=== PATIENT | female | born 1935 | race Caucasian/White ===

== ENCOUNTER → 2017-10-15 | Outpatient (CLI) | payer MEDICARE ==
[2017-07-23 10:53] VITALS: BMI 17.1
[~2017-10-15] MED LIST: ACE3 PO; ACE325 PO; ACET650T40 PO; ADV250/50 INH; ALE70 PO; AMI200 PO; AMIO200T47 PO; AMOX-557 PO; ASPI-1441 PO; ASPI-1471 PO; ATR10 PO; AZIT-1 PO; BENZ200C15 PO; BUDE10.25 IH; CALC-734 PO; CAR3.125 PO; CAR6.25 PO; CEF300 PO; CHOL100052 PO; CHOL100060 PO; CIP500 PO; COM14R INH; DAR100 PO; DICL100G39 TOP; DILT240C PO; DILT240C64 PO; ERG400 PO; FLU IM; FLU45SYR17 IM; FLU45SYR25 IM ONLY; FLUT16SP20 NS; FURO-43 PO; FURO-47 PO; IRON1CAP52 PO; LEVO750T44 PO; LIPITOR; LISI-362 PO; LISI2.5T60 PO; LOR10 PO; LOR5/325 PO; METO-233 PO; METO100T20 PO; MUCOUS RELIEF PO; MULT-1319 PO; MULT-820 PO; MULT-865 PO; OMEG-23 PO; OMEP-153 PO; OMEP10CA40 PO; OXYGENHOME INH; PANT40TA65 PO; PNEU0.5D3 IM; POTA20TA85 PO; POTA20TA94 PO; PRE10 PO; SIMV-42 PO; SIMV-49 PO; SODCTAB PO; SPIR25TA78 PO; SULF-198 PO; TRAM-420 PO; TUM500 PO; WAR1 PO; WAR25 PO; WAR5 PO; WARF-1 PO; WARF2.5T11 PO; WARF4TAB47 PO; WARF5TAB23 PO; ZOST19404 SQ
== END ==
LOC: LAB 13:53
PROVIDERS: ATTEND Internal Medicine
DX: E87.1 Hypo-osmolality and hyponatremia (principal)
CPT/HCPCS: 36415; 82310; 82374; 82435; 82565; 82947; 84132; 84295; 84520

== ENCOUNTER → 2017-12-08 | Outpatient (CLI) | payer MEDICARE ==
[2017-07-23 10:53] VITALS: BMI 17.1
[~2017-12-08] MED LIST changes: +HYDR-4309 PO
== END ==
LOC: LAB 15:10
PROVIDERS: ATTEND Internal Medicine
DX: E87.1 Hypo-osmolality and hyponatremia (principal)
CPT/HCPCS: 36415; 82310; 82374; 82435; 82565; 82947; 84132; 84295; 84520

== ENCOUNTER 2018-02-10 10:07 | Inpatient (IN) | payer MEDICARE ==
[~2018-02-10] VITALS: Ht 165.1 cm; Wt 42.9 kg
[~2018-02-10 10:07] MED LIST changes: -FLUT1DIS27 INH
--- NOTE | 2018-02-10 10:16 | ER Report ---
History and Physical Time Seen By MD: 10:12 HPI/ROS CHIEF COMPLAINT: Fall history of neck pain. HISTORY OF PRESENT ILLNESS: Patient is an 82-year-old female who fell approximately 2 days ago is now having some lateral neck pain. Patient does take Coumadin for atrial fibrillation. Because of the pain and spasm patient was given 2.5 mg of IV Valium by EMS. Patient states that she tripped and fell backwards at her home striking the back of her head. Over the course of the last 48 hours she developed left-sided neck pain. Headache is mild but is still present. She denies any nausea or vomiting she denies loss of consciousness. She denies chest pain she denies shortness of breath she denies abdominal pain. She denies any urinary symptoms. REVIEW OF SYSTEMS: Constitutional: No fever, no chills. Eyes: No discharge. ENT: No sore throat. Left lateral neck pain Cardiovascular: No chest pain, no palpitations. Respiratory: No cough, no shortness of breath. Gastrointestinal: No abdominal pain, no vomiting. Genitourinary: No hematuria. Musculoskeletal: No back pain. Skin: No rashes. Neurological: Headache Allergies: Coded Allergies: latex (Verified Allergy, Mild, RASH, 02/10/18) mustard (Verified Allergy, Mild, 02/10/18) Home Meds Active Scripts Metoprolol Succinate (METOPROLOL SUCCINATE) 100 Mg Tab.er.24h, 1 TAB PO BID, # 180 TAB 4 Refills Prov:CHIP PEDRO MD 12/10/17 Warfarin Sodium (COUMADIN) 5 Mg Tablet, 0.5-5 TAB PO DIRECTED, #30 TAB 11 Refills Take 5mg Mon, Wed, Fri, and 2.5mg the rest of the week (Sun, , Th, Sat) Prov:CHIP PEDRO MD 09/01/17 Pantoprazole Sodium (PANTOPRAZOLE SODIUM) 40 Mg Tablet.dr, 1 TAB PO QDAY, #90 TAB.SR 4 Refills Prov:CHIP PEDRO MD 09/01/17 Simvastatin (SIMVASTATIN) 20 Mg Tablet, 1 TAB PO HS, #90 TAB 4 Refills Prov:CHIP PEDRO MD 10/05/16 [place]-3 Fatty Acids/Fish Oil (FISH OIL 1,000 MG SOFTGEL) 1 Each Capsule, 1 EACH PO QDAY, #30 CAPSULE Prov:HAIRSTONJACQUELINE PHARMDora 08/06/14 Reported Medications Oxygen (OXYGEN) Inha, 2 L INH HS, L 01/29/16 Multivitamin (DAILY MULTIPLE VITAMIN) 1 Each Tablet, 1 TAB PO DAILY 05/17/14 Aspirin (ASPIR 81) 81 Mg Tablet.dr, 1 TAB PO QDAY 05/17/14 Discontinued Scripts Hydrocodone Bit/Acetaminophen (NORCO 5-325 TABLET) 1 Each Tablet, 1 TAB PO QDAY Y for pain for 30 Days, #30 TAB 0 Refills Prov:CHIP PEDRO MD 11/24/17 Past Medical/Surgical History Past medical history for atrial fibrillation on Coumadin. History of hypertension history of myocardial infarction, history of COPD, pacemaker, left hip fracture with repair, history of bleeding diathesis. Hx Smoking: Yes Smoking Status: Current: Every Day Smoker, Light Tobacco Smoker Exposure to Second Hand Smoke?: No Hx Substance Use Disorder: No Hx Alcohol Use: No Constitutional Vital Sign - Last 24 Hours 02/10/18 02/10/18 02/10/18 02/10/18 10:08 10:08 10:10 10:15 Temp 98.2 Pulse 70 Resp 16 B/P (MAP) 104/50 104/50 (68) 95/58 (70) Pulse Ox 95 O2 Delivery Nasal Cannula O2 Flow Rate 2.0 02/10/18 02/10/18 02/10/18 02/10/18 10:30 10:30 10:30 10:35 Pulse 65 65 Resp 16 12 B/P (MAP) 87/59 (68) Pulse Ox 100 100 O2 Delivery Nasal Cannula O2 Flow Rate 2.0 02/10/18 02/10/18 02/10/18 02/10/18 10:45 11:15 11:30 11:35 Pulse 44 Resp 18 B/P (MAP) 100/63 (75) 132/66 (88) 133/63 (86) Pulse Ox 81 02/10/18 02/10/18 02/10/18 02/10/18 11:45 12:00 12:27 12:30 B/P (MAP) 127/72 (90) 126/62 (83) 125/61 (82) 130/60 (83) 02/10/18 02/10/18 02/10/18 12:45 13:00 13:15 B/P (MAP) 135/65 (88) 154/83 (106) 148/74 (98) Intake and Output 02/10/18 02/10/18 02/11/18 15:00 23:00 07:00 Intake Total 600 ml Output Total 15 ml Balance 585 ml Physical Exam General/Constitutional: Patient is awake, alert, nontoxic and in no acute respiratory distress. Head: Normocephalic and atraumatic. Eyes: Conjunctival clear, Pupils are equal and reactive to light. Extraocular muscles are intact and symmetrical. Sclera are clear and anicteric. Eyes are sunken Ears:External canals are clear. Tympanic membranes are clear with normal landmarks and light reflex. Nares: No rhinorrhea or bleeding. Turbinates are pink and moist. Oropharyngeal: Mucous membranes are moist. There is no pharyngeal erythema or exudate. There are no palatal petechiae. Uvula is midline and symmetrical. Neck: Patient with left lateral neck tenderness no palpable step-offs noted. Patient remains in c-collar Cardiovascular: Heart is regular rate and rhythm Pulmonary: Lungs reveal scattered rhonchi with cough. Abdomen: Soft, nontender, no guarding or peritoneal signs. Colostomy intact Extremities: No gross deformities, No peripheral cyanosis. Able to move all 4 extremities. Neuro: Alert and oriented X3, GCS-15 Skin: No rashes, skin is warm dry and well perfused. Medical Decision Making Data Points Result Diagram: 02/10/18 0950 02/10/18 0950 Laboratory Hematology Test 02/10/18 09:50 02/10/18 11:14 Red Blood Count 4.36 M/uL (4.17-5.56) Mean Corpuscular Volume 89.8 fL (80.0-96.0) Mean Corpuscular Hemoglobin 30.4 pg (26.0-33.0) Mean Corpuscular Hemoglobin Concent 33.8 g/dL (32.0-36.0) Red Cell Distribution Width 15.7 % (11.5-14.5) Mean Platelet Volume 7.3 fL (7.2-11.1) Neutrophils (%) (Auto) 70.9 % (39.4-72.5) Lymphocytes (%) (Auto) 20.9 % (17.6-49.6) Monocytes (%) (Auto) 6.1 % (4.1-12.4) Eosinophils (%) (Auto) 1.8 % (0.4-6.7) Basophils (%) (Auto) 0.3 % (0.3-1.4) Nucleated RBC Relative Count (auto) 0.0 /100WBC Neutrophils # (Auto) 5.3 K/uL (2.0-7.4) Lymphocytes # (Auto) 1.6 K/uL (1.3-3.6) Monocytes # (Auto) 0.5 K/uL (0.3-1.0) Eosinophils # (Auto) 0.1 K/uL (0.0-0.5) Basophils # (Auto) 0.0 K/uL (0.0-0.1) Nucleated RBC Absolute Count (auto) 0.00 K/uL Prothrombin Time 25.2 seconds (12.0-14.4) Prothromb Time International Ratio 2.21 Sodium Level 123 mmol/L (137-145) Potassium Level 4.2 mmol/L (3.5-5.0) Chloride Level 91 mmol/L (98-107) Carbon Dioxide Level 25 mmol/L (22-31) Blood Urea Nitrogen 10 mg/dl (7-18) Creatinine 0.70 mg/dl (0.52-1.04) Glomerular Filtration Rate Calc > 60.0 Random Glucose 95 mg/dl (75-110) Calcium Level 8.7 mg/dl (8.4-10.2) Total Bilirubin 0.4 mg/dl (0.2-1.3) Aspartate Amino Transf (AST/SGOT) 30 U/L (0-35) Alanine Aminotransferase (ALT/SGPT) 25 U/L (0-56) Alkaline Phosphatase 105 U/L (0-126) Troponin I < 0.012 ng/ml B-Type Natriuretic Peptide 275 pg/ml (0-100) Total Protein 7.3 g/dl (6.3-8.2) Albumin 3.6 g/dl (3.5-5.0) Urine Color Erika Urine Clarity Slightly-cloudy Urine pH 5.0 pH (4.8-9.5) Urine Specific Buena 1.024 Urine Protein 30 mg/dL (NEGATIVE) Urine Glucose (UA) Negative mg/dL (NEGATIVE) Urine Ketones Negative mg/dL (NEGATIVE) Urine Blood Negative (NEGATIVE) Urine Nitrite Negative (NEGATIVE) Urine Bilirubin Negative (NEGATIVE) Urine Urobilinogen Negative mg/dL (0.2-1.9) Urine Leukocyte Esterase Small (NEGATIVE) Urine RBC 4 /HPF (0-2/HPF) Urine WBC 14 /HPF (0-5/HPF) Urine Squamous Epithelial Cells None /LPF (NONE-FEW) Urine Bacteria Few /HPF (NONE-FEW) Urine Mucus None /HPF (NONE-FEW) Chemistry Test 02/10/18 09:50 02/10/18 11:14 White Blood Count 7.4 k/uL (4.5-11.0) Red Blood Count 4.36 M/uL (4.17-5.56) Hemoglobin 13.2 g/dL (12.0-16.0) Hematocrit 39.1 % (34.0-47.0) Mean Corpuscular Volume 89.8 fL (80.0-96.0) Mean Corpuscular Hemoglobin 30.4 pg (26.0-33.0) Mean Corpuscular Hemoglobin Concent 33.8 g/dL (32.0-36.0) Red Cell Distribution Width 15.7 % (11.5-14.5) Platelet Count 308 K/uL (150-450) Mean Platelet Volume 7.3 fL (7.2-11.1) Neutrophils (%) (Auto) 70.9 % (39.4-72.5) Lymphocytes (%) (Auto) 20.9 % (17.6-49.6) Monocytes (%) (Auto) 6.1 % (4.1-12.4) Eosinophils (%) (Auto) 1.8 % (0.4-6.7) Basophils (%) (Auto) 0.3 % (0.3-1.4) Nucleated RBC Relative Count (auto) 0.0 /100WBC Neutrophils # (Auto) 5.3 K/uL (2.0-7.4) Lymphocytes # (Auto) 1.6 K/uL (1.3-3.6) Monocytes # (Auto) 0.5 K/uL (0.3-1.0) Eosinophils # (Auto) 0.1 K/uL (0.0-0.5) Basophils # (Auto) 0.0 K/uL (0.0-0.1) Nucleated RBC Absolute Count (auto) 0.00 K/uL Prothrombin Time 25.2 seconds (12.0-14.4) Prothromb Time International Ratio 2.21 Glomerular Filtration Rate Calc > 60.0 Calcium Level 8.7 mg/dl (8.4-10.2) Total Bilirubin 0.4 mg/dl (0.2-1.3) Aspartate Amino Transf (AST/SGOT) 30 U/L (0-35) Alanine Aminotransferase (ALT/SGPT) 25 U/L (0-56) Alkaline Phosphatase 105 U/L (0-126) Troponin I < 0.012 ng/ml B-Type Natriuretic Peptide 275 pg/ml (0-100) Total Protein 7.3 g/dl (6.3-8.2) Albumin 3.6 g/dl (3.5-5.0) Urine Color Erika Urine Clarity Slightly-cloudy Urine pH 5.0 pH (4.8-9.5) Urine Specific Buena 1.024 Urine Protein 30 mg/dL (NEGATIVE) Urine Glucose (UA) Negative mg/dL (NEGATIVE) Urine Ketones Negative mg/dL (NEGATIVE) Urine Blood Negative (NEGATIVE) Urine Nitrite Negative (NEGATIVE) Urine Bilirubin Negative (NEGATIVE) Urine Urobilinogen Negative mg/dL (0.2-1.9) Urine Leukocyte Esterase Small (NEGATIVE) Urine RBC 4 /HPF (0-2/HPF) Urine WBC 14 /HPF (0-5/HPF) Urine Squamous Epithelial Cells None /LPF (NONE-FEW) Urine Bacteria Few /HPF (NONE-FEW) Urine Mucus None /HPF (NONE-FEW) Coagulation Test 02/10/18 09:50 Prothrombin Time 25.2 seconds Prothromb Time International Ratio 2.21 Urinalysis Test 02/10/18 11:14 Urine Color Erika Urine Clarity Slightly-cloudy Urine pH 5.0 pH (4.8-9.5) Urine Specific [place] 1.024 Urine Protein 30 mg/dL (NEGATIVE) Urine Glucose (UA) Negative mg/dL (NEGATIVE) Urine Ketones Negative mg/dL (NEGATIVE) Urine Blood Negative (NEGATIVE) Urine Nitrite Negative (NEGATIVE) Urine Bilirubin Negative (NEGATIVE) Urine Urobilinogen Negative mg/dL (0.2-1.9) Urine Leukocyte Esterase Small (NEGATIVE) Urine RBC 4 /HPF (0-2/HPF) Urine WBC 14 /HPF (0-5/HPF) Urine Squamous Epithelial Cells None /LPF (NONE-FEW) Urine Bacteria Few /HPF (NONE-FEW) Urine Mucus None /HPF (NONE-FEW) EKG/Imaging EKG Interpretation EKG shows electronic ventricular pacer with a rate of 65 bpm Monitor Interpretation: Other (Paced) Imaging FACILITY: [facility] - [place], [place] PATIENT NAME: Adelina Ballesteros : 1935 MR: [id number] V: [id number] EXAM DATE: ORDERING PHYSICIAN: SHERLYN VILLANUEVA TECHNOLOGIST: Location: [facility] - [place] Patient: Adelina Ballesteros : 1935 Visit/Account:[id number] Date of Sevice: 02/10/2018 Exam type: CHEST PA AND LAT History: RESP DISTRESS Comparison: July 25, 2017. Findings: Chronic pleural parenchymal scarring in the lung bases again noted. Cardiac silhouette is enlarged but relatively unchanged. There is a dual lead cardiac pacemaker and two cardiac valves and sternotomy sutures. Very prominent left hilar shadow appears unchanged. Extremely dense vascular calcifications are identified in the right subclavian artery IMPRESSION: 1. Extensive pleural parenchymal scarring throughout the lungs Cardiomegaly unchanged Very prominent left hilar shadow unchanged Report Dictated By: Eugenia Garcia MD at 02/10/2018 11:36 AM Report E-Signed By: Eugenia Garcia MD at 02/10/2018 11:39 AM WSN:[email or web address] FACILITY: [facility] - [place], [place] PATIENT NAME: Adelina Ballesteros : 1935 MR: [id number] V: [id number] EXAM DATE: ORDERING PHYSICIAN: SHERLYN VILLANUEVA TECHNOLOGIST: Location: [facility] - [place] Patient: Adelina Ballesteros : 1935 Visit/Account:[id number] Date of Sevice: 02/10/2018 Exam type: CERVICAL SPINE 2 OR 3 VIEW History: L2 days ago, neck pain Comparison: Cervical spine series May 01, 2014. And CT of the cervical spine July 21, 2017 Findings: On the lateral view C1-C7 appear to be in gross anatomic alignment. Extensive hypertrophic changes are seen anterior to the C1 to level. Similar findings were identified on the prior CT. The AP and odontoid views are somewhat limited due to overlapping shadows. Dense calcifications are identified in the carotid arteries bilaterally. There is no evidence of prevertebral soft tissue swelling IMPRESSION: 1. Limited study as described above. On the lateral view C1-C7 appear to be in gross anatomic alignment with extensive hypertrophic changes anterior to the C1-2 level. Similar changes were seen on a prior CT. The odontoid process is not ideally visualized on the AP views No evidence of prevertebral soft tissue swelling Extensive vascular calcifications in the carotid arteries Report Dictated By: Eugenai Garcia MD at 02/10/2018 11:31 AM Report E-Signed By: Eugenia Garcia MD at 02/10/2018 11:36 AM WSN:MALOU FACILITY: [facility] - [place], [place] PATIENT NAME: Adelina Ballesteros : 1935 MR: [id number] V: [id number] EXAM DATE: ORDERING PHYSICIAN: SHERLYN VILLANUEVA TECHNOLOGIST: Location: [facility] - [place] Patient: Adelina Ballesteros : 1935 Visit/Account:[id number] Date of Sevice: 02/10/2018 Exam type: CERVICAL SPINE 1 VIEW History: repeat odontoid views Comparison: C-spine images performed today. Findings: There is limited AP views of the odontoid were submitted. By technologist notation the patient was unable to extend her neck for proper positioning. The odontoid process is not well evaluated. If an abnormality remains of strong clinical concern CT or MR is recommended IMPRESSION: 1. Very limited views the odontoid process as described above which is not ideally evaluated. If an abnormality remains of strong clinical concern a CT or MR is recommended Report Dictated By: Eugenia Garcia MD at 02/10/2018 12:57 PM Report E-Signed By: Eugenia Garcia MD at 02/10/2018 12:59 PM WSN:MALOU ED Course/Re-evaluation ED Course 02/10/2018 10:24:13 am patient with fall approximately 2 days ago with left- sided neck pain also with headache. Patient is anticoagulated on Coumadin. Our CT scan is currently not functioning. I did discuss whether or not an MRI would be sensitive enough to chicken picker an intracranial bleed. Our on-call radiologist states that this should be sufficient. Plan at this time will be to x-ray her neck we are unable to perform an MRI as the patient has has a pace maker. Patient also found to have diffuse rhonchi on exam with cough. Plan will also be medical workup including chest x-ray CBC CMP troponin EKG catheter urinalysis and culture as well as blood cultures. 02/10/2018 1:08:15 pm patient treatment with potential UTI started on antibiotics. Repeat odontoid view out of the c-collar still with limited views. My suspicion for actual C-spine injury is low. This information was relayed to the admitting physician. They will potentially perform a CT scan of the cervical spine once she is admitted to the floor in the CT scanner is working Decision to Disposition Date: Feb 10, 2018 Decision to Disposition Time: 13:09 Depart Departure Latest Vital Signs Vital Signs Date Time Temp Pulse Resp B/P (MAP) Pulse Ox O2 Delivery O2 Flow Rate FiO2 02/10/18 13:15 148/74 (98) 02/10/18 11:35 44 18 81 02/10/18 10:30 Nasal Cannula 2.0 02/10/18 10:08 98.2 Impression: Primary Impression: Hyponatremia Additional Impression: Urinary tract infection Condition: Improved Disposition: Admitted from ER (to Dr De Leon) Referrals: CHIP PEDRO MD (PCP) Problem Qualifiers Additional Impression: Urinary tract infection Urinary tract infection type: acute cystitis Hematuria presence: without hematuria Qualified Codes: N30.00 - Acute cystitis without hematuria SHERLYN VILLANUEVA MD Feb 10, 2018 10:16
[2018-02-10] MEDS ORDERED: ALBUTEROL/IPRATROPIUM 3 ML NEB NEB ONE (10:20)
[2018-02-10 10:27] LABS: PLATELET COUNT, AUTOMATED 308 K/uL (150-450)
[2018-02-10] MEDS ORDERED: NS(*) 0.9% 500 ML BAG 500 ML IV ONE (10:35)
--- NOTE | 2018-02-10 10:40 | EKG ---
FACILITY: [facility] [place] PATIENT NAME: SASKIA BAXTER : [id number] MR: [id number] V: [id number] EXAM DATE: ORDERING PHYSICIAN: SHERLYN VILLANUEVA TECHNOLOGIST: NIC Deluna Reason : Blood Pressure : / mmHG Vent. Rate : 065 BPM Atrial Rate : 051 BPM P-R Int : 000 ms QRS Dur : 162 ms QT Int : 482 ms P-R-T Axes : 000 258 082 degrees QTc Int : 501 ms Electronic ventricular pacemaker When compared with ECG of 24-JUL-2017 08:06, No significant change was found Confirmed by LEONEL TREVINO ([id number]) on 02/10/2018 11:33:43 AM Referred By: Confirmed By:LEONEL TREVINO
[2018-02-10 10:42] LABS: INR 2.21
--- NOTE | 2018-02-10 11:40 | RADIOLOGY IMAGING REPORT ---
FACILITY[place] [facility] [place] PATIENT NAME: Adelina Ballesteros : 1935 MR: [id number] V: [id number] EXAM DATE: ORDERING PHYSICIAN: SHERLYN VILLANUEVA TECHNOLOGIST: Location: [facility] - [place] Patient: Adelina Ballesteros : 1935 Visit/Account:[id number] Date of Sevice: 02/10/2018 Exam type: CERVICAL SPINE 2 OR 3 VIEW History: L2 days ago, neck pain Comparison: Cervical spine series May 01, 2014. And CT of the cervical spine July 21, 2017 Findings: On the lateral view C1-C7 appear to be in gross anatomic alignment. Extensive hypertrophic changes a re seen anterior to the C1 to level. Similar findings were identified on the prior CT. The AP and o dontoid views are somewhat limited due to overlapping shadows. Dense calcifications are identified i n the carotid arteries bilaterally. There is no evidence of prevertebral soft tissue swelling IMPRESSION: 1. Limited study as described above. On the lateral view C1-C7 appear to be in gross anatomic align ment with extensive hypertrophic changes anterior to the C1-2 level. Similar changes were seen on a prior CT. The odontoid process is not ideally visualized on the AP views No evidence of prevertebral soft tissue swelling Extensive vascular calcifications in the carotid arteries Report Dictated By: Eugenia Garcia MD at 02/10/2018 11:31 AM Report E-Signed By: Eugenia Garcia MD at 02/10/2018 11:36 AM WSN:[email or web address]
--- NOTE | 2018-02-10 11:42 | RADIOLOGY IMAGING REPORT ---
FACILITY: [facility] - [place] PATIENT NAME: Adelina Ballesteros : 1935 MR: [id number] V: [id number] EXAM DATE: ORDERING PHYSICIAN: SHERLYN VILLANUEVA TECHNOLOGIST: Location: [facility] - [place] Patient: Adelina Ballesteros : 1935 Visit/Account:[id number] Date of Sevice: 02/10/2018 Exam type: CHEST PA AND LAT History: RESP DISTRESS Comparison: July 25, 2017. Findings: Chronic pleural parenchymal scarring in the lung bases again noted. Cardiac silhouette is enlarged b ut relatively unchanged. There is a dual lead cardiac pacemaker and two cardiac valves and sternotom y sutures. Very prominent left hilar shadow appears unchanged. Extremely dense vascular calcificati ons are identified in the right subclavian artery IMPRESSION: 1. Extensive pleural parenchymal scarring throughout the lungs Cardiomegaly unchanged Very prominent left hilar shadow unchanged Report Dictated By: Eugenia Garcia MD at 02/10/2018 11:36 AM Report E-Signed By: Eugenia Garcia MD at 02/10/2018 11:39 AM WSN:[email or web address]
[2018-02-10] MEDS ORDERED: cefTRIAXone(*) 1 GM VIAL 1 GM in NS(*) 0.9% 100 ML ADDVANT BAG 100 ML IVPB ONE (11:50)
--- NOTE | 2018-02-10 13:03 | RADIOLOGY IMAGING REPORT ---
FACILITY: [facility] - [place] PATIENT NAME: Adelina Ballesteros : 1935 MR: [id number] V: [id number] EXAM DATE: ORDERING PHYSICIAN: SHERLYN VILLANUEVA TECHNOLOGIST: Location: [facility] - [place] Patient: Adelina Ballesteros : 1935 Visit/Account:[id number] Date of Sevice: 02/10/2018 Exam type: CERVICAL SPINE 1 VIEW History: repeat odontoid views Comparison: C-spine images performed today. Findings: There is limited AP views of the odontoid were submitted. By technologist notation the patient was u nable to extend her neck for proper positioning. The odontoid process is not well evaluated. If an abnormality remains of strong clinical concern CT or MR is recommended IMPRESSION: 1. Very limited views the odontoid process as described above which is not ideally evaluated. If an abnormality remains of strong clinical concern a CT or MR is recommended Report Dictated By: Eugenia Garcia MD at 02/10/2018 12:57 PM Report E-Signed By: Eugenia Garcia MD at 02/10/2018 12:59 PM WSN:MALOU
[2018-02-10 13:45] VITALS: BP 106/72
[2018-02-10] MEDS ORDERED: INFLUENZA VIRUS VAC 0.5 ML SYR IM ONLY ONE (14:05)
--- NOTE | 2018-02-10 15:02 | History & Physical ---
History of Present Illness Chief Complaint Fall, Neck pain History of Present Illness She presented to the emergency department with complaints of neck pain after a fall 2 days ago. She reports she was in a "swivel" chair and spun the chair and fell backwards onto the back of her head and neck. She denies LOC, but has developed left-sided neck pain as a result of the fall. She does report a history of atrial fibrillation for which she takes Coumadin. She denies chest pain, SOB, abdominal pain. She does have a cough, but contributes this to her COPD. She was found to have hyponatremia in the ER. History Problems: (1) Essential hypertension Status: Chronic (2) Cardiac pacemaker in situ Status: Chronic (3) COPD (chronic obstructive pulmonary disease) Status: Chronic (4) Atrial fibrillation Status: Chronic (5) Esophageal reflux Status: Chronic Home Meds Active Scripts Metoprolol Succinate (METOPROLOL SUCCINATE) 100 Mg Tab.er.24h, 1 TAB PO BID, # 180 TAB 4 Refills Prov:CHIP PEDRO MD 12/10/17 Warfarin Sodium (COUMADIN) 5 Mg Tablet, 0.5-5 TAB PO DIRECTED, #30 TAB 11 Refills Take 5mg Mon, Wed, Fri, and 2.5mg the rest of the week (Sun, Tu, Th, Sat) Prov:CHIP PEDRO MD 09/01/17 Pantoprazole Sodium (PANTOPRAZOLE SODIUM) 40 Mg Tablet.dr, 1 TAB PO QDAY, #90 TAB.SR 4 Refills Prov:CHIP PEDRO MD 09/01/17 Simvastatin (SIMVASTATIN) 20 Mg Tablet, 1 TAB PO HS, #90 TAB 4 Refills Prov:CHIP PEDRO MD 10/05/16 [place]-3 Fatty Acids/Fish Oil (FISH OIL 1,000 MG SOFTGEL) 1 Each Capsule, 1 EACH PO QDAY, #30 CAPSULE Prov:JACQUELINE HAIRSTON PHARMD 08/06/14 Reported Medications Oxygen (OXYGEN) Inha, 2 L INH HS, L 01/29/16 Multivitamin (DAILY MULTIPLE VITAMIN) 1 Each Tablet, 1 TAB PO DAILY 05/17/14 Aspirin (ASPIR 81) 81 Mg Tablet.dr, 1 TAB PO QDAY 05/17/14 Discontinued Scripts Hydrocodone Bit/Acetaminophen (NORCO 5-325 TABLET) 1 Each Tablet, 1 TAB PO QDAY Y for pain for 30 Days, #30 TAB 0 Refills Prov:CHIP PEDRO MD 11/24/17 Allergies: Coded Allergies: latex (Verified Allergy, Mild, RASH, 02/10/18) mustard (Verified Allergy, Mild, 02/10/18) Patient History: FH: breast cancer SISTER, Age:71, Onset:55 SISTER, , Age:57 NIECE NIECE NIECE FH: diabetes mellitus FATHER, , Age:62 MOTHER, , Age:91 SON FH: heart disease FATHER, , Age:62 (mitral valve) MOTHER, , Age:91 SISTER, Age:81 FH: hypertension FH: lung disease SISTER, Age:81 FH: peptic ulcer disease SISTER, , Age:35 (perforated) FH: prostate cancer BROTHER, Age:76 FH: stroke MOTHER, , Age:91 Hx Smoking: Yes Smoking Status: Current: Every Day Smoker, Light Tobacco Smoker Exposure to Second Hand Smoke?: No Caffeine Intake: Coffee, Tea, Soda Caffeine/Cups Per Day: 2 cups daily Hx Alcohol Use: No Hx Substance Use Disorder: No Review of Systems All Systems Reviewed/Normal: Yes, Except as Noted Respiratory: Cough Musculoskeletal: Pain (left sided neck pain) Exam Vital Signs Vital Signs Date Time Temp Pulse Resp B/P (MAP) Pulse Ox O2 Delivery O2 Flow Rate FiO2 02/10/18 13:45 97.8 65 18 106/72 (83) 100 Nasal Cannula 4.0 General Appearance: Alert, Awake, No Acute Distress, Afebrile Neuro: No Gross deficits Eyes: Other (eyes sunken) Neck: Other (no midline tenderness, left sided pain to muscular area) Cardiovascular: Regular Rate and Rhythm, Other (murmur noted) Respiratory: No Respiratory Distress, Clear to Auscultation, Other (thick bronchial sounds noted) GI: Abd Soft and Non-Tender Extremities: Warm, Perfused, No Edema Psych: Alert & Oriented X3, Appropriate Mood & Affect Medical Decision Making Data Points Result Diagram: 02/10/18 0950 02/10/18 0950 Item Value Date Time B-Type Natriuretic Peptide 275 pg/ml H 02/10/18 0950 Troponin I < 0.012 ng/ml 02/10/18 0950 Alkaline Phosphatase 105 U/L 02/10/18 0950 Alanine Aminotransferase (ALT/SGPT) 25 U/L 02/10/18 0950 Aspartate Amino Transf (AST/SGOT) 30 U/L 02/10/18 0950 EKG / Imaging EKG Interpretation Paced rhythm noted to EKG [place] [facility] [place] Adelina Ballesteros : 1935 Visit/Account:[id number] Date of Sev: 02/10/2018 Exam type: CHEST PA AND LAT History: RESP DISTRESS Comparison: July 25, 2017. Findings: Chronic pleural parenchymal scarring in the lung bases again noted. Cardiac silhouette is enlarged but relatively unchanged. There is a dual lead cardiac pacemaker and two cardiac valves and sternotomy sutures. Very prominent left hilar shadow appears unchanged. Extremely dense vascular calcifications are identified in the right subclavian artery IMPRESSION: 1. Extensive pleural parenchymal scarring throughout the lungs Cardiomegaly unchanged Very prominent left hilar shadow unchanged [place] [facility] [place] Adelina Ballesteros : 1935 Visit/Account:[id number] Date of Sevice: 02/10/2018 Exam type: CERVICAL SPINE 2 OR 3 VIEW History: L2 days ago, neck pain Comparison: Cervical spine series May 01, 2014. And CT of the cervical spine July 21, 2017 Findings: On the lateral view C1-C7 appear to be in gross anatomic alignment. Extensive hypertrophic changes are seen anterior to the C1 to level. Similar findings were identified on the prior CT. The AP and odontoid views are somewhat limited due to overlapping shadows. Dense calcifications are identified in the carotid arteries bilaterally. There is no evidence of prevertebral soft tissue swelling IMPRESSION: 1. Limited study as described above. On the lateral view C1-C7 appear to be in gross anatomic alignment with extensive hypertrophic changes anterior to the C1-2 level. Similar changes were seen on a prior CT. The odontoid process is not ideally visualized on the AP views No evidence of prevertebral soft tissue swelling Assessment and Plan Problems: (1) Hyponatremia Status: Acute Assessment & Plan: She was admitted with a sodium level of 123. She has been having increased falls over the last two months, with increased weakness. She will receive IV hydration and we will recheck a BMP tonight and in the morning. She also will receive an evaluation from PT and OT. (2) Urinary tract infection Status: Acute Assessment & Plan: She is asympathetic at this time, she has no fever or elevated WBC count. Urine culture is pending. At this time, I would not recommend treating UTI until culture result is received. (3) Essential hypertension Status: Chronic Assessment & Plan: She is on chronic treatment with Metoprolol. This has been restarted with hold parameters. (4) Esophageal reflux Status: Chronic Assessment & Plan: She is on chronic treatment with Protonix. (5) Atrial fibrillation Status: Chronic Assessment & Plan: She has a pacemaker and is on Coumadin chronically. (6) COPD (chronic obstructive pulmonary disease) Status: Chronic Assessment & Plan: She reports she was on Symbicort a long time ago. She usually does not take any medication for her COPD. I will start her on Advair to help with cough and COPD symptoms. (7) Low BMI Status: Chronic Assessment & Plan: Malnourished. Central Venous Access Medical Necessity for Access: Hemodynamic Monitoring, IV Access, Medication Administration Venous Thromboembolism Antithrombotics Is Pt On Any Antithrombotics?: Yes Exam Sepsis Risk: No Definite Risk Problem Qualifiers (1) Urinary tract infection: Urinary tract infection type: acute cystitis Hematuria presence: without hematuria Qualified Codes: N30.00 - Acute cystitis without hematuria HIMANSHU HERNANDEZ Feb 10, 2018 15:01
[2018-02-10] MEDS: NS(*) 0.9% 1000 ML BAG 1,000 ML IV PRN (15:25)
[2018-02-10] MEDS: ACETAMINOPHEN 325 MG TAB PO PRN (16:08)
[2018-02-10] MEDS: SALMETEROL/FLUTIC 100/50 1 INH INH SCH (17:07)
[2018-02-10 18:58] VITALS: BP 109/57
[2018-02-10] MEDS: METOPROLOL SUCC XL 50 MG TABCR 50 MG TAB.ER.24H PO SCH (21:00)
[2018-02-10] MEDS ORDERED: WARFARIN SOD 2.5 MG TAB PO SCH (21:00)
[2018-02-10] MEDS ORDERED: METOPROLOL SUCC XL 50 MG TABCR 50 MG TAB.ER.24H PO SCH (21:00)
[2018-02-10] MEDS: SIMVASTATIN 20 MG TAB PO SCH (21:33)
[2018-02-11] VITALS (7 sets, daily range): BP systolic 100–144; BP diastolic 48–78; BMI 15.6
[2018-02-11] MEDS: NS(*) 0.9% 1000 ML BAG 1,000 ML IV PRN ×2 (02:10→15:53)
[2018-02-11] MEDS: SALMETEROL/FLUTIC 100/50 1 INH INH SCH ×2 (06:02→16:53)
[2018-02-11 06:10] LABS: PLATELET COUNT, AUTOMATED 171 K/uL (150-450)
[2018-02-11 06:15] LABS: INR 2.82
[2018-02-11] MEDS: PANTOPRAZOLE SOD 40 MG TABEC PO SCH (08:58)
[2018-02-11] MEDS: ASPIRIN 81 MG ENTERIC COATED PO SCH (08:58)
[2018-02-11] MEDS: METOPROLOL SUCC XL 50 MG TABCR 50 MG TAB.ER.24H PO SCH ×2 (08:59→21:00)
[2018-02-11] MEDS: ALBUTEROL 2.5 MG/3 ML NEB NEB PRN ×2 (10:49→16:53)
[2018-02-11] MEDS: predniSONE 20 MG TAB PO SCH ×2 (12:48→21:14)
[2018-02-11] MEDS: ACETAMINOPHEN 325 MG TAB PO PRN ×2 (14:48→21:14)
[2018-02-11] MEDS: CYCLOBENZAPRINE HCL 10 MG TAB PO PRN (14:49)
--- NOTE | 2018-02-11 15:24 | Hospitalist Progress Note ---
Subjective Progress Notes Subjective Mrs. Ballesteros is an 82-year-old female with PMH of HTN, CAD s/p PR, A.fib s/p PPM and on Coumadin and COPD due to smoking who presented to the ER with neck pain after having fall at home 2 days ago on 02/10/18. She was on Coumadin and her C-spine XR was negative in the ER. CT head and neck could not be done in the ER due to malfunction of CT machine. She mentioned that she fell from the chair striking the back of her head without LOC. 02/11: Today patient is doing better with less pain in her neck. She c/o mild swelling in her L-side of her neck. She is afebrile and hemodynamically stable. She c/o productive cough. Patient Complains of: Neurological: No: Confusion, Weakness, Dizziness Cardiovascular: No: Chest Pain, Palpitations Respiratory: Cough, Congestion, Shortness of Breath, Wheezing Gastrointestinal: No Nausea, No Vomiting Genitourinary: No Dysuria, No Hematuria Musculoskeletal: No: Pain (L-sided neck), Sprain, Strain Physical Exam Vital Signs Date Time Temp Pulse Resp B/P (MAP) Pulse Ox O2 Delivery O2 Flow Rate FiO2 02/11/18 11:26 97.6 65 20 138/78 (98) 99 Nasal Cannula 2.0 Intake and Output 02/12/18 07:00 Intake Total 440 ml Output Total 225 ml Balance 215 ml Intake Oral 440 ml Output Urine Total 225 ml # Voids 1 General Appearance: Alert, Awake, No Acute Distress, Afebrile, Other ( cachectic looking female) Neuro: No Gross deficits Eyes: PERRLA ENT: Normal Neck: Other (mild tender and edema L-TM area) Cardiovascular: Other (AF) Respiratory: Other (bilateral rhonchi) GI: Soft and Non-Tender Extremities: Soft and Non Tender, Other (tight hand skin with discoloration of the fingers) Psych: Alert & Oriented X3, Appropriate Mood & Affect Result Diagram: 02/11/1851602/11/18516 Monitor Interpretation: Other (Paced) Assessment and Plan Problems: (1) Hyponatremia Status: Acute Assessment & Plan: She was admitted with a sodium level of 123. She has been having increased falls over the last two months, with increased weakness. She will receive IV hydration and we will recheck a BMP tonight and in the morning. She also will receive an evaluation from PT and OT. 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 I will keep her on fluid restriction and salt therapy. I will get BMP in am I would get CT head and neck once the CT machine is functional (2) Urinary tract infection Status: Acute Assessment & Plan: She is asympathetic at this time, she has no fever or elevated WBC count. Urine culture is pending. At this time, I would not recommend treating UTI until culture result is received. 02/08: I will repeat her U/A and watch her. If she develops fever or WBC then I will treat her. (3) Essential hypertension Status: Chronic Assessment & Plan: She is on chronic treatment with Metoprolol. This has been restarted with hold parameters. (4) Esophageal reflux Status: Chronic Assessment & Plan: She is on chronic treatment with Protonix. (5) Atrial fibrillation Status: Chronic Assessment & Plan: She has a pacemaker and is on Coumadin chronically. 02/11: I will get PT/INR in am (6) COPD (chronic obstructive pulmonary disease) Status: Chronic Assessment & Plan: She reports she was on Symbicort a long time ago. She usually does not take any medication for her COPD. I will start her on Advair to help with cough and COPD symptoms. 02/11: I will use Prednisone 40mg po bid and taper it gradually for her COPD and request Metaneb with Duoneb treatments for her pulmonary status. (7) Low BMI Status: Chronic Assessment & Plan: Malnourished. (8) Raynaud disease Status: Chronic Assessment & Plan: She appears to have Raynaud's disease and her hands skin is also tight with micro ulceration and perioral creases and symptoms of GERD. She could have CREST/Scleroderma? I would suggest her PCP to further evaluate her by a Radiotelegraph Operator Servicer for her symptoms and r/o CREST vs Scleroderma Central Venous Access Medical Necessity for Access: Hemodynamic Monitoring, IV Access, Medication Administration Time Spent on Plan of Care: > 30 min Copies to: CHIP PEDRO MD Exam Sepsis Risk: No Definite Risk Problem Qualifiers (1) Urinary tract infection: Urinary tract infection type: acute cystitis Hematuria presence: without hematuria Qualified Codes: N30.00 - Acute cystitis without hematuria JEFF GUADALUPE MD Feb 11, 2018 15:24
--- NOTE | 2018-02-11 20:39 | RADIOLOGY IMAGING REPORT ---
FACILITY: [facility] PATIENT NAME: Adelina Ballesteros : 1935 MR: [id number] V: [id number] EXAM DATE: ORDERING PHYSICIAN: HIMANSHU HERNANDEZ TECHNOLOGIST: Location: [facility] Patient: Adelina Ballesteros : 1935 Visit/Account:[id number] Date of Sevice: 02/11/2018 HEAD W/O CONTRAST HISTORY: fall, head, neck pain COMPARISON STUDIES: CT scan brain July 21, 2017. TECHNIQUE: Contiguous axial images were obtained from the skull base to the vertex. One of the following dose optimization techniques was utilized in the performance of this exam: Autom ated exposure control; adjustment of the mA and/or kV according to the patient's size; or use of an i terative reconstruction technique. Specific details can be referenced in the facility's radiology C T exam operational policy. FINDINGS: Hemorrhage: There is no intraparenchymal or extra-axial bleed. Ventricles / sulci / fissures: Large of the ventricles and sulci represents atrophy appropriate for t he patient's stated age. Masses / midline shift: No findings of a mass. White matter and trujillo matter: There are areas of lucency in the frontal white matter suggestive of sm all microvascular ischemic disease. Extra-axial spaces: Negative Bones/skull base: Negative Visualized mastoid air cells / paranasal sinuses: Normal so far as visualized. Scalp and soft tissues: No findings of a scalp hematoma. The previous noted right frontal scalp hemat luisa has resolved. Vascular/other findings: The optic lenses are surgically absent bilaterally. IMPRESSION: 1. Age-appropriate cerebral atrophy with minimal small vessel white matter ischemic changes in the pe riventricular frontal lobes. 2. No findings of a mass or bleed. Report Dictated By: Piero Villegas MD at 02/11/2018 8:32 PM Report E-Signed By: Piero Villegas MD at 02/11/2018 8:36 PM WSN:[id number]
[2018-02-11] MEDS: SIMVASTATIN 20 MG TAB PO SCH (21:14)
[2018-02-11] MEDS: WARFARIN SOD 5 MG TAB PO SCH (21:18)
--- NOTE | 2018-02-11 22:57 | RADIOLOGY IMAGING REPORT ---
FACILITY: [facility] PATIENT NAME: Adelina Ballesteros : 1935 MR: [id number] V: [id number] EXAM DATE: ORDERING PHYSICIAN: HIMANSHU HERNANDEZ TECHNOLOGIST: [place] [facility] [place] Adelina Ballesteros : 1935 Visit/Account:[id number] Date of Sevice: 02/11/2018 EXAMINATION: CT Cervical spine without intravenous contrast HISTORY: Fall, pain COMPARISON: July 21, 2017 TECHNIQUE: Axial images were obtained from the skull base through the upper thoracic spine without I V contrast administration. Coronal and sagittal reformatted images were generated from the axial sour ce data. One of the following dose optimization techniques was utilized in the performance of this exam: autom ated exposure control; adjustment of the mA and/or kV according to patient size; or use of iterative reconstruction technique. Specific details can be referenced in the facility's radiology CT exam ope rational policy. FINDINGS: Small erosion within the posterior aspect of the dens is unchanged. Vertebral body heights are normal . Bony hypertrophy surrounding the dens and C2 vertebral body, anterior arch of C1 with a groundglas s matrix is unchanged. Similar bony hypertrophy with groundglass matrix adjacent to the right C3 and C4 articular pillars similar to prior. Multilevel facet arthropathy. New slight anterolisthesis of C4 on C5. Unchanged slight anterolisthesis of C5 on C6. The dense protrudes above the basion into the intracranial space in keeping with basilar invagination as before. Degeneration of the right C1 and C2 lateral mass joint space as before. There is a new nondisplaced fracture involving the left posterior C1 arch, axial image 155. There is additional age-indeterminate discontinuity of the left C1 transverse process, axial image 15 5 Normal prevertebral soft tissues. The left thyroid lobe exhibits multiple varying sized nodules in keeping with a multinodular goiter. The right thyroid lobe is absent. Upper lobe emphysema noted. IMPRESSION: 1. New nondisplaced left posterior C1 arch fracture. 2. Additional age-indeterminate discontinuity of the left C1 transverse process which communicates wi th the transverse foramen is new compared to 2017 comparison. This may represent a chronic nonhealed fracture given appearance. An acute fracture cannot be excluded. 3. Unchanged non-specific chronic bony hypertrophy with groundglass matrix surrounding the dens, C2 v ertebral body and anterior C1 arch as well as the right upper cervical spine posterior elements which may represent the residua of an inflammatory arthropathy. Fibrous dysplasia is felt less likely. 4. Unchanged basilar invagination. Report Dictated By: Diomedes Cotton MD at 02/11/2018 10:28 PM Report E-Signed By: Diomedes Cotton MD at 02/11/2018 10:53 PM WSN:[id number]
[2018-02-12 02:20] VITALS: BP 113/58
[2018-02-12] MEDS: NS(*) 0.9% 1000 ML BAG 1,000 ML IV PRN (04:48)
[2018-02-12] MEDS: SALMETEROL/FLUTIC 100/50 1 INH INH SCH ×2 (05:34→17:52)
[2018-02-12 06:05] LABS: PLATELET COUNT, AUTOMATED 226 K/uL (150-450)
[2018-02-12 06:08] LABS: INR 3.42
[2018-02-12 08:09] VITALS: BP 109/53
[2018-02-12] MEDS: METOPROLOL SUCC XL 50 MG TABCR 50 MG TAB.ER.24H PO SCH ×2 (09:00→10:02)
[2018-02-12] MEDS: CYCLOBENZAPRINE HCL 10 MG TAB PO PRN (10:01)
[2018-02-12] MEDS: predniSONE 20 MG TAB PO SCH ×2 (10:01→21:25)
[2018-02-12] MEDS: ASPIRIN 81 MG ENTERIC COATED PO SCH (10:01)
[2018-02-12] MEDS: ACETAMINOPHEN 325 MG TAB PO PRN ×2 (10:01→19:56)
[2018-02-12] MEDS: PANTOPRAZOLE SOD 40 MG TABEC PO SCH (10:02)
[2018-02-12] MEDS: SODIUM CHLORIDE 1 GR TAB PO SCH ×2 (10:10→17:48)
[2018-02-12] MEDS ORDERED: FUROSEMIDE 20 MG/2 ML VIAL IVP ONE (10:10)
--- NOTE | 2018-02-12 12:51 | Hospitalist Progress Note ---
Subjective Progress Notes Subjective Mrs. Ballesteros is an 82-year-old female with PMH of HTN, CAD s/p MO, A.fib s/p PPM and on Coumadin and COPD due to smoking who presented to the ER with neck pain after having fall at home 2 days ago on 02/10/18. She was on Coumadin and her C-spine XR was negative in the ER. CT head and neck could not be done in the ER due to malfunction of CT machine. She mentioned that she fell from the chair striking the back of her head without LOC. 02/11: Today patient is doing better with less pain in her neck. She c/o mild swelling in her L-side of her neck. She is afebrile and hemodynamically stable. She c/o productive cough. 02/12: She is afebrile and hemodynamically stable today. Her CT scan of the head was negative. Her CT of C-spine revealed C1 posterior arch stable fracture. I discussed the case with Dr. Navas and he recommended no surgical intervention. He advised to keep the cervical collar for 3 weeks and f/u with him in his office in 1 week. Her Na level is 125 and BNP 317 today. She denies any complaint today. Patient Complains of: Neurological: No: Confusion, Weakness, Dizziness Cardiovascular: Other, No: Chest Pain, Palpitations Respiratory: Cough, No: Congestion, Shortness of Breath Gastrointestinal: No Nausea, No Vomiting Genitourinary: No Dysuria, No Hematuria Musculoskeletal: Impaired Mobility (of the neck), No: Pain, Sprain, Strain Physical Exam Vital Signs Date Time Temp Pulse Resp B/P (MAP) Pulse Ox O2 Delivery O2 Flow Rate FiO2 02/12/18 08:09 98.5 70 20 109/53 (71) 96 Nasal Cannula 0.5 71 Intake and Output 02/13/18 07:00 Intake Total 240 ml Output Total 150 ml Balance 90 ml Intake Oral 240 ml Output Urine Total 150 ml # Voids 1 General Appearance: Alert, Awake, No Acute Distress, Afebrile Neuro: No Gross deficits Eyes: PERRLA ENT: Normal Neck: Other (cervical collar) Cardiovascular: Other (AF) Respiratory: No Respiratory Distress GI: Soft and Non-Tender Extremities: Soft and Non Tender Integumentary: Generalized Fragile Skin Psych: Alert & Oriented X3, Appropriate Mood & Affect Result Diagram: 02/12/18 0527 02/12/18 0527 Monitor Interpretation: Other (Paced) Assessment and Plan Problems: (1) Hyponatremia Status: Acute Assessment & Plan: She was admitted with a sodium level of 123. She has been having increased falls over the last two months, with increased weakness. She will receive IV hydration and we will recheck a BMP tonight and in the morning. She also will receive an evaluation from PT and OT. 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 I will keep her on fluid restriction and salt therapy. I will get BMP in am I would get CT head and neck once the CT machine is functional 02/12: I will stop her IVF today I will try one dose of Lasix 20mg IV today I will also use NaCl tablets for her low Na I will get BMP and BNP and INR in am (2) Urinary tract infection Status: Acute Assessment & Plan: She is asympathetic at this time, she has no fever or elevated WBC count. Urine culture is pending. At this time, I would not recommend treating UTI until culture result is received. 02/08: I will repeat her U/A and watch her. If she develops fever or WBC then I will treat her. 02/12: repeat U/A is mildly positive but she is afebrile and with normal WBC I will give her 2 days of Keflex 500mg po bid for UTI Possible d/c in am (3) Essential hypertension Status: Chronic Assessment & Plan: She is on chronic treatment with Metoprolol. This has been restarted with hold parameters. (4) Esophageal reflux Status: Chronic Assessment & Plan: She is on chronic treatment with Protonix. (5) Atrial fibrillation Status: Chronic Assessment & Plan: She has a pacemaker and is on Coumadin chronically. 02/11: I will get PT/INR in am 02/12: I will hold her Coumadin today and recheck her INR in am (6) COPD (chronic obstructive pulmonary disease) Status: Chronic Assessment & Plan: She reports she was on Symbicort a long time ago. She usually does not take any medication for her COPD. I will start her on Advair to help with cough and COPD symptoms. 02/11: I will use Prednisone 40mg po bid and taper it gradually for her COPD and request Metaneb with Duoneb treatments for her pulmonary status. 02/12: I will taper her Prednisone (7) Low BMI Status: Chronic Assessment & Plan: Malnourished. (8) Raynaud disease Status: Chronic Assessment & Plan: She appears to have Raynaud's disease and her hands skin is also tight with micro ulceration and perioral creases and symptoms of GERD. She could have CREST/Scleroderma? I would suggest her PCP to further evaluate her by a Tie Puller for her symptoms and r/o CREST vs Scleroderma 02/12: I will decrease and taper her steroids gradually I will decrease her steroids dose to 20mg po bid Central Venous Access Medical Necessity for Access: Hemodynamic Monitoring, IV Access, Medication Administration Time Spent on Plan of Care: > 30 min Copies to: CHIP PEDRO MD Exam Sepsis Risk: No Definite Risk Problem Qualifiers (1) Urinary tract infection: Urinary tract infection type: acute cystitis Hematuria presence: without hematuria Qualified Codes: N30.00 - Acute cystitis without hematuria JEFF GUADALUPE MD Feb 12, 2018 12:51
[2018-02-12 14:29] VITALS: BP 117/53
[2018-02-12 19:48] VITALS: BP 123/54
[2018-02-12] MEDS: WARFARIN SOD 5 MG TAB PO SCH ×2 (21:00→21:25)
[2018-02-12] MEDS: SIMVASTATIN 20 MG TAB PO SCH (21:24)
[2018-02-13] VITALS (8 sets, daily range): BP systolic 102–140; BP diastolic 57–90
[2018-02-13] MEDS: CYCLOBENZAPRINE HCL 10 MG TAB PO PRN ×3 (00:14→17:35)
[2018-02-13] MEDS: SODIUM CHLORIDE 1 GR TAB PO SCH ×3 (00:15→17:23)
[2018-02-13] MEDS: SALMETEROL/FLUTIC 100/50 1 INH INH SCH ×2 (05:30→16:59)
[2018-02-13 06:24] LABS: INR 3.71
[2018-02-13] MEDS: ACETAMINOPHEN 325 MG TAB PO PRN ×2 (08:14→17:35)
[2018-02-13] MEDS: predniSONE 20 MG TAB PO SCH (08:14)
[2018-02-13] MEDS: PANTOPRAZOLE SOD 40 MG TABEC PO SCH (08:15)
[2018-02-13] MEDS: ASPIRIN 81 MG ENTERIC COATED PO SCH (08:15)
[2018-02-13] MEDS: METOPROLOL SUCC XL 50 MG TABCR 50 MG TAB.ER.24H PO SCH ×2 (08:17→21:00)
[2018-02-13] MEDS: SIMVASTATIN 20 MG TAB PO SCH (21:20)
[2018-02-14] MEDS: SODIUM CHLORIDE 1 GR TAB PO SCH ×2 (00:58→09:28)
[2018-02-14 03:25] VITALS: BP 151/70
[2018-02-14] MEDS: CYCLOBENZAPRINE HCL 10 MG TAB PO PRN (03:35)
[2018-02-14] MEDS: SALMETEROL/FLUTIC 100/50 1 INH INH SCH (05:41)
[2018-02-14 06:20] LABS: INR 3.42
[2018-02-14 07:34] VITALS: BP 139/67
[2018-02-14] MEDS ORDERED: predniSONE 10 MG TAB PO SCH (09:00)
[2018-02-14] MEDS: ASPIRIN 81 MG ENTERIC COATED PO SCH (09:28)
[2018-02-14] MEDS: PANTOPRAZOLE SOD 40 MG TABEC PO SCH (09:28)
[2018-02-14] MEDS: METOPROLOL SUCC XL 50 MG TABCR 50 MG TAB.ER.24H PO SCH (09:28)
[2018-02-14 10:26] VITALS: Ht 165.1 cm; Wt 42.9 kg
[2018-02-14 10:52] VITALS: BP 123/65
[2018-02-14] MEDS ORDERED: FLUT1DIS27 INH (12:29)
[2018-02-14] MEDS ORDERED: WARF5TAB23 PO (12:30)
[2018-02-14] MEDS ORDERED: SODCTAB PO (12:37)
--- NOTE | 2018-02-14 12:55 | Hospitalist Depart ---
Discharge Summary Reason for Hosp/Final Diag: (1) Fracture of C1 vertebra, closed Status: Acute Hospital Course & Plan: Secondary to a fall. Nondisplaced left posterior C1 arch fracture. Dr. Navas looked at the films and recommended a hard collar and follow up with him. 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 Her sodium has increased with fluid restriction and salt supplementation. She will need a follow up BMP in about a week. (3) Weakness Status: Acute Hospital Course & Plan: She has been having falls at home. The cause is multifactorial (i.e. age, low BMI, low sodium). She was seen by therapy who recommend home health for continued work with therapy. (4) Urinary tract infection Status: Acute Hospital Course & Plan: She is asymptomatic at this time, she has no fever or elevated WBC count. Urine culture had no growth. (5) Essential hypertension Status: Chronic Hospital Course & Plan: She is on chronic treatment with Metoprolol. (6) Esophageal reflux Status: Chronic Hospital Course & Plan: She is on chronic treatment with Protonix. (7) Atrial fibrillation Status: Chronic Hospital Course & Plan: She has a pacemaker and is on warfarin chronically. She is supratherapeutic, so will have her hold warfarin until it is checked tomorrow. She has been falling more, so will defer to her PCP about continuing warfarin. (8) COPD (chronic obstructive pulmonary disease) Status: Chronic Hospital Course & Plan: She reports she was on Symbicort a long time ago. She usually does not take any medication for her COPD. She was started on Advair to help with cough and COPD symptoms. She was also placed on prednisone that has been tapered and will stop it. (9) Low BMI Status: Chronic Hospital Course & Plan: Malnourished. Prealbumin is low. (10) Raynaud disease Status: Chronic Hospital Course & Plan: She appears to have Raynaud's disease and her hands skin is also tight with micro ulceration and perioral creases and symptoms of GERD. She could have CREST/Scleroderma? I would suggest her PCP to further evaluate her by a Truck Trailer Mechanic for her symptoms and r/o CREST vs Scleroderma Departure Weight (Pounds): 94 Weight (Ounces): 8.0 Result Diagram: 02/12/18 0527 02/13/18 0520 Item Value Date Time Urine Leukocyte Esterase Small H 02/10/18 1114 Urine RBC 4 /HPF 02/10/18 1114 Urine WBC 14 /HPF 02/10/18 1114 Urine Leukocyte Esterase Trace H 02/11/18 1245 Urine RBC 2 /HPF 02/11/18 1245 Urine WBC 10 /HPF 02/11/18 1245 Urine Bacteria Few /HPF 02/10/18 1114 Urine Bacteria Few /HPF 02/11/18 1245 Urine Squamous Epithelial Cells Few /LPF 02/11/18 1245 Urine Squamous Epithelial Cells None /LPF 02/10/18 1114 Urine Protein 30 mg/dL 02/10/18 1114 Urine Protein Negative mg/dL 02/11/18 1245 White Blood Count 7.4 k/uL 02/10/18 0950 White Blood Count 6.7 k/uL 02/11/18 0517 White Blood Count 5.2 k/uL 02/12/18 0527 Hemoglobin 11.3 g/dL L 02/12/18 0527 Hemoglobin 11.7 g/dL L 02/11/18 0517 Hemoglobin 13.2 g/dL 02/10/18 0950 Platelet Count 308 K/uL 02/10/18 0950 Platelet Count 171 K/uL 02/11/18 0517 Platelet Count 226 K/uL 02/12/18 0527 Mean Corpuscular Volume 89.8 fL 02/10/18 0950 Mean Corpuscular Volume 89.0 fL 02/11/18 0517 Mean Corpuscular Volume 89.5 fL 02/12/18 0527 Prothromb Time International Ratio 3.42 02/14/18 0519 Prothromb Time International Ratio 2.21 02/10/18 0950 Prothromb Time International Ratio 2.82 02/11/18 0517 Prothromb Time International Ratio 3.42 02/12/18 0527 Prothromb Time International Ratio 3.71 02/13/18 0520 Sodium Level 123 mmol/L *L 02/10/18 0950 Sodium Level 124 mmol/L *L 02/10/18 1911 Blood Urea Nitrogen 10 mg/dl 02/10/18 0950 Creatinine 0.70 mg/dl 02/10/18 0950 Total Bilirubin 0.4 mg/dl 02/10/18 0950 Aspartate Amino Transf (AST/SGOT) 30 U/L 02/10/18 0950 Alanine Aminotransferase (ALT/SGPT) 25 U/L 02/10/18 0950 Alkaline Phosphatase 105 U/L 02/10/18 0950 Troponin I < 0.012 ng/ml 02/10/18 0950 B-Type Natriuretic Peptide 275 pg/ml H 02/10/18 0950 Prealbumin 15.8 mg/dL L 02/10/18 0950 Blood Urea Nitrogen 10 mg/dl 02/10/181910 Creatinine 0.70 mg/dl 02/10/18 191 Sodium Level 125 mmol/L *L 02/11/18 0517 Sodium Level 125 mmol/L *L 02/12/18 0527 Sodium Level 127 mmol/L L 02/13/18 0520 Blood Urea Nitrogen 9 mg/dl 02/11/18 0517 Creatinine 0.70 mg/dl 02/11/18 0517 Blood Urea Nitrogen 13 mg/dl 02/12/18 0527 Creatinine 0.70 mg/dl 02/12/18 0527 Blood Urea Nitrogen 14 mg/dl 02/13/18 0520 Creatinine 0.70 mg/dl 02/13/18 0520 B-Type Natriuretic Peptide 317 pg/ml H 02/12/18 0527 B-Type Natriuretic Peptide 341 pg/ml H 02/13/18 0520 Random Glucose 74 mg/dl L 02/11/18 0517 Random Glucose 118 mg/dl H 02/12/18 0527 Random Glucose 113 mg/dl H 02/13/18 0520 Blood cultures from 02/10/18 without growth x2 Urine cultures from 02/10/18 and 02/11/18 are without growth. Imaging Cervical Spine CT - 1. New nondisplaced left posterior C1 arch fracture. 2. Additional age-indeterminate discontinuity of the left C1 transverse process which communicates with the transverse foramen is new compared to 2017 comparison. This may represent a chronic nonhealed fracture given appearance. An acute fracture cannot be excluded. 3. Unchanged non-specific chronic bony hypertrophy with groundglass matrix surrounding the dens, C2 vertebral body and anterior C1 arch as well as the right upper cervical spine posterior elements which may represent the residua of an inflammatory arthropathy. Fibrous dysplasia is felt less likely. 4. Unchanged basilar invagination. Head CT - 1. Age-appropriate cerebral atrophy with minimal small vessel white matter ischemic changes in the periventricular frontal lobes. 2. No findings of a mass or bleed. Cervical spine Xray - 1. Very limited views the odontoid process as described above which is not ideally evaluated. If an abnormality remains of strong clinical concern a CT or MR is recommended 1. Limited study as described above. On the lateral view C1-C7 appear to be in gross anatomic alignment with extensive hypertrophic changes anterior to the C1-2 level. Similar changes were seen on a prior CT. The odontoid process is not ideally visualized on the AP views No evidence of prevertebral soft tissue swelling Extensive vascular calcifications in the carotid arteries CXR - 1. Extensive pleural parenchymal scarring throughout the lungs Cardiomegaly unchanged Very prominent left hilar shadow unchanged EKG Vent. Rate : 065 BPM Atrial Rate : 051 BPM P-R Int : 000 ms QRS Dur : 162 ms QT Int : 482 ms P-R-T Axes : 000 258 082 degrees QTc Int : 501 ms Electronic ventricular pacemaker When compared with ECG of 24-JUL-2017 08:06, No significant change was found Confirmed by ELONEL TREVINO ([id number]) on 02/10/2018 11:33:43 AM Condition: Improved Discharge: Home Health PT/OT Follow Up For: PT For Strengthening, OT For ADL's Discharge Instructions Home Meds Active Scripts Sodium Chloride (SODIUM CHLORIDE) 1 Gm Tab, 1 GM PO BID, #60 TAB Prov:LEONEL TREVINO MD 02/14/18 Fluticasone/Salmeterol (ADVAIR 100-50 DISKUS) 1 Each Disk.w.dev, 1 EACH INH BIDR for 14 Days, Prov:LEONEL TREVINO MD 02/14/18 Metoprolol Succinate (METOPROLOL SUCCINATE) 100 Mg Tab.er.24h, 1 TAB PO BID, # 180 TAB 4 Refills Prov:CHIP PEDRO MD 12/10/17 Pantoprazole Sodium (PANTOPRAZOLE SODIUM) 40 Mg Tablet.dr, 1 TAB PO QDAY, #90 TAB.SR 4 Refills Prov:CHIP PEDRO MD 09/01/17 Simvastatin (SIMVASTATIN) 20 Mg Tablet, 1 TAB PO HS, #90 TAB 4 Refills Prov:CHIP PEDRO MD 10/05/16 [place]-3 Fatty Acids/Fish Oil (FISH OIL 1,000 MG SOFTGEL) 1 Each Capsule, 1 EACH PO QDAY, #30 CAPSULE Prov:JACQUELINE HAIRSTON PHARMD 08/06/14 Reported Medications Warfarin Sodium (WARFARIN SODIUM) 5 Mg Tablet, 2.5-5 MG PO QDAY, TAB take as directed 02/14/18 Oxygen (OXYGEN) Inha, 2 L INH HS, L 01/29/16 Multivitamin (DAILY MULTIPLE VITAMIN) 1 Each Tablet, 1 TAB PO DAILY 05/17/14 Aspirin (ASPIR 81) 81 Mg Tablet.dr, 1 TAB PO QDAY 05/17/14 Discontinued Scripts Hydrocodone Bit/Acetaminophen (NORCO 5-325 TABLET) 1 Each Tablet, 1 TAB PO QDAY Y for pain for 30 Days, #30 TAB 0 Refills Prov:CHIP PEDRO MD 11/24/17 Diet: Fluid Restricted Special Instructions: Discharge home with second cervical collar, collar to remain on at all times including bathing and eating. Collar may be removed after bathing to replace with a dry collar. Follow up with Dr. Navas one week from [facility], (02/22) at [facility] in [place]. INR tomorrow. Don't restart warfarin until instructed to my PCP. BMP in about a week to follow the sodium. Don't drink more than 2000cc of fluid a day. Follow up with PCP in 1-2 weeks. Copies to: ANA VILLALOBOS PA-C; CONCEPCION NAVAS MD Venous Thromboembolism Antithrombotics Is Pt On Any Antithrombotics?: Yes [id number]-[id number] Certification Face to Face Home Health Certification Institutional Provider conducted the ulfk-gn-skis encounter. Electronic Undersigning Physician Certifies Home Health. I certify that the patient has been under my care and that I had a [id number] encounter that meets the physician [id number]-aj-dbey encounter requirements with this patient. This patient is home-bound due to safety issues and continues to require assistance with ADL's. I certify that based on my findings, that Nursing, Aides and the following Home Health services are medically necessary: Medical Necessity: Rehab Date Face to Face Conducted: Feb 14, 2018 Problem Qualifiers (1) Urinary tract infection: Urinary tract infection type: acute cystitis Hematuria presence: without hematuria Qualified Codes: N30.00 - Acute cystitis without hematuria LEONEL TREVINO MD Feb 14, 2018 12:54
--- NOTE | 2018-02-14 17:07 | Hospitalist Progress Note ---
Subjective Progress Notes Subjective Late entry for 02/13/18 This patient was admitted for hyponatremia and was found to have a cervical fracture. She had no acute events overnight. Patient Complains of: Cardiovascular: No: Chest Pain Respiratory: No: Shortness of Breath Physical Exam Vital Signs Date Time Temp Pulse Resp B/P (MAP) Pulse Ox O2 Delivery O2 Flow Rate FiO2 02/14/18 10:52 98.0 65 16 123/65 (84) 96 Room Air 02/12/18 08:09 0.5 Intake and Output 02/15/18 06:59 Intake Total 720 ml Balance 720 ml Intake Oral 720 ml Cardiovascular: Regular Rate and Rhythm Respiratory: Clear to Auscultation Result Diagram: 02/12/18 0527 02/13/18 0520 Monitor Interpretation: Other (Paced) Assessment and Plan Problems: (1) Fracture of C1 vertebra, closed Status: Acute Assessment & Plan: Secondary to a fall. Nondisplaced left posterior C1 arch fracture. Dr. Navas looked at the films and recommended a hard collar and follow up with him. 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 Her sodium has increased with fluid restriction and salt supplementation. (3) Weakness Status: Acute Assessment & Plan: She has been having falls at home. The cause is multifactorial (i.e. age, low BMI, low sodium). She was seen by therapy who recommend home health for continued work with therapy. (4) Urinary tract infection Status: Acute Assessment & Plan: She is asymptomatic at this time, she has no fever or elevated WBC count. Urine culture had no growth. (5) Essential hypertension Status: Chronic Assessment & Plan: She is on chronic treatment with Metoprolol. (6) Esophageal reflux Status: Chronic Assessment & Plan: She is on chronic treatment with Protonix. (7) Atrial fibrillation Status: Chronic Assessment & Plan: She has a pacemaker and is on warfarin chronically. She is supratherapeutic, so will have her hold warfarin until it is checked tomorrow. She has been falling more, so will defer to her PCP about continuing warfarin. (8) COPD (chronic obstructive pulmonary disease) Status: Chronic Assessment & Plan: She reports she was on Symbicort a long time ago. She usually does not take any medication for her COPD. She was started on Advair to help with cough and COPD symptoms. She was also placed on prednisone that has been tapered and will stop it. (9) Low BMI Status: Chronic Assessment & Plan: Malnourished. Prealbumin is low. (10) Raynaud disease Status: Chronic Assessment & Plan: She appears to have Raynaud's disease and her hands skin is also tight with micro ulceration and perioral creases and symptoms of GERD. She could have CREST/Scleroderma? I would suggest her PCP to further evaluate her by a Fire Extinguisher Installer for her symptoms and r/o CREST vs Scleroderma Central Venous Access Medical Necessity for Access: Hemodynamic Monitoring, IV Access, Medication Administration Exam Sepsis Risk: No Definite Risk Problem Qualifiers (1) Urinary tract infection: Urinary tract infection type: acute cystitis Hematuria presence: without hematuria Qualified Codes: N30.00 - Acute cystitis without hematuria LUKAS ROSE DO Feb 14, 2018 17:07
== END 2018-02-14 13:30 | disposition home health service (06) | DRG 552 ==
LOC: ER 10:15 → MED 13:22
PROVIDERS: ADMIT Internal Medicine; ATTEND Internal Medicine
DX: S12.030A Displaced posterior arch fracture of first cervical vertebra, initial encounter for closed fracture (principal); N30.00 Acute cystitis without hematuria; Z68.1 Body mass index [BMI] 19.9 or less, adult; E22.2 Syndrome of inappropriate secretion of antidiuretic hormone; I48.2 Chronic atrial fibrillation; K21.9 Gastro-esophageal reflux disease without esophagitis; I10 Essential (primary) hypertension; R29.6 Repeated falls; Z79.01 Long term (current) use of anticoagulants; Z95.0 Presence of cardiac pacemaker; J44.9 Chronic obstructive pulmonary disease, unspecified; I73.00 Raynaud's syndrome without gangrene; R53.1 Weakness; Z95.2 Presence of prosthetic heart valve; I25.2 Old myocardial infarction; W07.XXXA Fall from chair, initial encounter; Z91.040 Latex allergy status; Z91.018 Allergy to other foods; I25.10 Atherosclerotic heart disease of native coronary artery without angina pectoris
CPT/HCPCS: 36415; 70450; 71046; 72020; 72040; 72125; 81001; 82040; 82247; 82310; 82374; 82435; 82565; 82947; 83880; 84075; 84132; 84134; 84155; 84295; 84450; 84460; 84484; 84520; 85025; 85610; 87040; 87088; 93005; 94640; 94667; 94668; 96361; 96365; 97161; 97165; 99285; A4353; J0696; J1940; J7030; J7040; J7050; J7512; J7613; L0172

== ENCOUNTER → 2018-02-10 | Outpatient (CLI) | payer MEDICARE ==
[~2018-02-10] MED LIST changes: +FLUT1DIS27 INH
[2018-02-14 10:26] VITALS: BMI 15.6
== END ==
LOC: AMB 09:30
PROVIDERS: ATTEND Nurse Practitioner
DX: M54.2 Cervicalgia (principal); W19.XXXA Unspecified fall, initial encounter
CPT/HCPCS: A0425; A0427

== ENCOUNTER → 2018-02-21 | Outpatient (REF) | payer MEDICARE ==
[2018-02-14 10:26] VITALS: BMI 15.6
[~2018-02-21] MED LIST changes: +FLUT1DIS27 INH
== END ==
LOC: ZZSENDIN 15:28
PROVIDERS: ATTEND Physician Assistant
DX: I48.92 Unspecified atrial flutter (principal); E87.1 Hypo-osmolality and hyponatremia
CPT/HCPCS: 82310; 82374; 82435; 82565; 82947; 84132; 84295; 84520

== ENCOUNTER → 2018-02-25 | Outpatient (CLI) | payer MEDICARE ==
[2018-02-14 10:26] VITALS: BMI 15.6
--- NOTE | 2018-02-25 18:25 | RADIOLOGY IMAGING REPORT ---
FACILITY: [facility] PATIENT NAME: Adelina Ballesteros : 1935 MR: [id number] V: [id number] EXAM DATE: ORDERING PHYSICIAN: LUKAS CORDON TECHNOLOGIST: Location: [facility] Patient: Adelina Ballesteros : 1935 Visit/Account:[id number] Date of Sevice: 02/25/2018 HIPS BILATERAL INDICATION: Low back pain. COMPARISON: None available FINDINGS: AP and lateral view both hips. No acute fracture or dislocation. Previous internal fixati on from a proximal left femoral fracture. There is still incomplete fusion at the fracture site. No b carlee lesions. The right hip does show at least mild degenerative change including disc space narrowing , small aspect and subchondral bony changes. Mild degenerative changes of the spine. Soft tissues are unremarkable. IMPRESSION: No acute abnormality. Other findings as above. Report Dictated By: Parth Kim at 02/25/2018 6:20 PM Report E-Signed By: Parth Kim at 02/25/2018 6:22 PM WSN:[id number]
--- NOTE | 2018-02-25 18:29 | RADIOLOGY IMAGING REPORT ---
FACILITY: [facility] PATIENT NAME: Adelina Ballesteros : 1935 MR: [id number] V: [id number] EXAM DATE: ORDERING PHYSICIAN: LUKAS CORDON TECHNOLOGIST: Location: [facility] Patient: Adelina Ballesteros : 1935 Visit/Account:[id number] Date of Sevice: 02/25/2018 LUMBAR SPINE 2 OR 3 VIEW INDICATION: Back pain. COMPARISON: None available FINDINGS: 3 views lumbar spine. There are 5 nonrib-bearing lumbar vertebral bodies. There is mild a nterior spondylolisthesis of L4 over L5 of 8 mm due to facet arthropathy. The remaining vertebral bod ies are aligned. No compression fractures, bony lesions or spondylolysis. Facet changes are present l ower lumbar spine with minimal disc space narrowing and small osteophytes. The endplates are maintain ed. The pedicles are well seen. Soft tissues show atherosclerotic calcific changes of the aorta witho ut aneurysm. Soft tissues are otherwise unremarkable. The heart does show 2000 replacement changes an d pacemaker wires in place. IMPRESSION: No acute abnormality with degenerative changes mainly in the facet regions. This does cau se mild anterior spinal listhesis of L4 over L5. Report Dictated By: Parth Kim at 02/25/2018 6:23 PM Report E-Signed By: Parth Kim at 02/25/2018 6:25 PM WSN:[id number]
== END ==
LOC: RAD 14:33
PROVIDERS: ATTEND Family Medicine
DX: M54.5 Low back pain (principal)
CPT/HCPCS: 72100; 73522

== ENCOUNTER → 2018-03-03 | Outpatient (REF) | payer MEDICARE ==
[2018-02-14 10:26] VITALS: BMI 15.6
[~2018-03-03] MED LIST changes: +FURO20TA19 PO; +METO50TA19 PO
== END ==
LOC: ZZSENDIN 15:24
PROVIDERS: ATTEND Family Medicine
DX: E87.1 Hypo-osmolality and hyponatremia (principal); R53.1 Weakness
CPT/HCPCS: 82310; 82374; 82435; 82565; 82947; 83930; 83935; 84132; 84295; 84300; 84443; 84520; 85027

== ENCOUNTER 2018-03-04 13:12 | Inpatient (IN) | payer MEDICARE ==
[~2018-03-04] VITALS: Ht 165.1 cm; Wt 48.2 kg
[~2018-03-04 13:12] MED LIST changes: -AMIO200T47 PO; +AMIO200T49 PO; -FURO20TA19 PO; -METO50TA19 PO
--- NOTE | 2018-03-04 13:55 | ER Report ---
History and Physical Time Seen By : 13:55 Hx. of Stated Complaint: HOME HEALTH NURSE BEE BLOOD TODAY AND PT WAS TOLD THAT SODIUM WAS DANGEROUSLY LOW PER DR. KERN TO COME TO THE ED HPI/ROS This is an 82-year-old female with multiple chronic medical problems to include chronic hyponatremia. She presents to the emergency department complaining of worsening shortness of breath for the past 2-3 days. She also states that she was told by her primary care physician that her sodium was low again. She admits that she has had a cough for the past 2-3 days. She denies any chest pain. No fever or chills. She continues to smoke cigarettes daily. No other complaints. Remainder of the 14 system rev: Yes Allergies: Coded Allergies: latex (Verified Allergy, Mild, RASH, 02/10/18) mustard (Verified Allergy, Mild, 02/10/18) Home Meds Active Scripts Fluticasone/Salmeterol (ADVAIR 100-50 DISKUS) 1 Each Disk.w.dev, 1 EACH INH BIDR for 14 Days, Prov:LEONEL TREVINO MD 02/14/18 Pantoprazole Sodium (PANTOPRAZOLE SODIUM) 40 Mg Tablet.dr, 1 TAB PO QDAY, #90 TAB.SR 4 Refills Prov:CHIP PEDRO MD 09/01/17 Simvastatin (SIMVASTATIN) 20 Mg Tablet, 1 TAB PO HS, #90 TAB 4 Refills Prov:CHIP PEDRO MD 10/05/16 [place]-3 Fatty Acids/Fish Oil (FISH OIL 1,000 MG SOFTGEL) 1 Each Capsule, 1 EACH PO QDAY, #30 CAPSULE Prov:JACQUELINE HAIRSTON PHARMD 08/06/14 Reported Medications Warfarin Sodium (WARFARIN SODIUM) 5 Mg Tablet, 5 MG PO QDAY, TAB 03/04/18 Furosemide (LASIX) 20 Mg Tablet, 1 TAB PO QDAY, TAB 03/04/18 Metoprolol Succinate (METOPROLOL SUCCINATE) 50 Mg Tab.er.24h, 1 TAB PO BID, TAB 03/04/18 Oxygen (OXYGEN) Inha, 2 L INH HS, L 01/29/16 Multivitamin (DAILY MULTIPLE VITAMIN) 1 Each Tablet, 1 TAB PO DAILY 05/17/14 Aspirin (ASPIR 81) 81 Mg Tablet., 1 TAB PO QDAY 05/17/14 Discontinued Reported Medications Warfarin Sodium (WARFARIN SODIUM) 5 Mg Tablet, 5 MG PO QDAY, TAB 03/04/18 Warfarin Sodium (WARFARIN SODIUM) 5 Mg Tablet, 2.5-5 MG PO QDAY, TAB take as directed 02/14/18 Discontinued Scripts Sodium Chloride (SODIUM CHLORIDE) 1 Gm Tab, 1 GM PO BID, #60 TAB Prov:LEONEL TREVINO MD 02/14/18 Metoprolol Succinate (METOPROLOL SUCCINATE) 100 Mg Tab.er.24h, 1 TAB PO BID, # 180 TAB 4 Refills Prov:CHIP PEDRO MD 12/10/17 Hx Smoking: Yes Smoking Status: Current: Every Day Smoker, Light Tobacco Smoker Exposure to Second Hand Smoke?: No Hx Substance Use Disorder: No Hx Alcohol Use: No Constitutional Vital Sign - Last 24 Hours 03/04/18 03/04/18 03/04/18 03/04/18 13:32 13:35 13:42 13:47 Temp 98.9 Pulse 65 65 Resp 12 25 B/P (MAP) 100/58 (72) 100/58 Pulse Ox 80 98 O2 Delivery Room Air Nasal Cannula O2 Flow Rate 2 2.0 03/04/18 03/04/18 03/04/18 03/04/18 13:49 13:57 14:00 14:05 Pulse 65 Resp 36 B/P (MAP) 110/63 (79) 113/66 (82) Pulse Ox 97 96 O2 Delivery Nasal Cannula Nasal Cannula O2 Flow Rate 2 2.0 03/04/18 03/04/18 03/04/18 03/04/18 14:05 14:12 14:15 14:27 Pulse 65 71 76 Resp 20 20 26 B/P (MAP) 131/89 (103) 03/04/18 03/04/18 03/04/18 03/04/18 14:30 14:42 14:45 14:57 Pulse 65 66 Resp 27 33 B/P (MAP) 131/58 (82) 109/52 (71) Pulse Ox 96 97 O2 Delivery Nasal Cannula Nasal Cannula O2 Flow Rate 2 2 03/04/18 03/04/18 03/04/18 03/04/18 15:02 15:15 15:17 15:30 Pulse 66 65 Resp 25 22 B/P (MAP) 104/56 (72) 116/57 (76) Pulse Ox 97 95 O2 Delivery Nasal Cannula Nasal Cannula O2 Flow Rate 2 2 03/04/18 03/04/18 03/04/18 03/04/18 15:32 15:45 15:47 16:00 Pulse 67 65 Resp 23 27 B/P (MAP) 119/55 (76) 106/56 (73) Pulse Ox 97 96 O2 Delivery Nasal Cannula Nasal Cannula O2 Flow Rate 2 2 03/04/18 03/04/18 03/04/18 03/04/18 16:02 16:17 16:22 16:30 Pulse 66 68 65 Resp 8 17 23 B/P (MAP) 124/58 (80) Pulse Ox 93 89 94 O2 Delivery Nasal Cannula Nasal Cannula O2 Flow Rate 2 2 03/04/18 16:37 Pulse 66 Resp 18 Pulse Ox 94 Physical Exam General Appearance: The patient is alert, has no immediate need for airway protection and no current signs of toxicity. Eyes: Pupils equal and round no injection. Respiratory: Chest is non tender,corse breath sounds and wheezing throughout her lung bazan. Cardiac: irregular rate Gastrointestinal: Abdomen is soft and non tender, no masses, bowel sounds normal. Extremities have full range of motion and are non tender. C-collar in place from old fracture Skin: No rashes or lesions. DIFFERENTIAL DIAGNOSIS: After history and physical exam differential diagnosis was considered for shortness of breath including but not limited to pulmonary infectious process, COPD, asthma, pulmonary embolus and congestive heart failure. Medical Decision Making Data Points Result Diagram: 03/05/18 0543 03/05/18 0543 Laboratory Hematology Test 03/04/18 14:32 Lactate 1.6 mmol/L (0.7-2.1) Total Bilirubin 0.7 mg/dl (0.2-1.3) Aspartate Amino Transf (AST/SGOT) 27 U/L (0-35) Alanine Aminotransferase (ALT/SGPT) 24 U/L (0-56) Alkaline Phosphatase 87 U/L (0-126) Troponin I 0.034 ng/ml Total Protein 6.2 g/dl (6.3-8.2) Albumin 3.2 g/dl (3.5-5.0) Chemistry Test 03/04/18 14:32 Lactate 1.6 mmol/L (0.7-2.1) Total Bilirubin 0.7 mg/dl (0.2-1.3) Aspartate Amino Transf (AST/SGOT) 27 U/L (0-35) Alanine Aminotransferase (ALT/SGPT) 24 U/L (0-56) Alkaline Phosphatase 87 U/L (0-126) Troponin I 0.034 ng/ml Total Protein 6.2 g/dl (6.3-8.2) Albumin 3.2 g/dl (3.5-5.0) EKG/Imaging Imaging X-ray: cxr was obtained. I viewed the images myself on the PACS system. My interpretation of the images is: hyperinflated lungs, s/p sternotomy, b/l pleural effusions. The radiologist interpretation had no clinically significant variation from this interpretation. ED Course/Re-evaluation ED Course Presents to the emergency department with hyponatremia found on recent labs by her PCP, but acutely also complains of worsening cough and shortness of breath for the past 2 or 3 days. Sats in the 70s upon arrival to the emergency department. Chest x-ray shows pleural effusions and a possible infiltrate as well. Given her new symptoms and recent hospitalization I treated her with antibiotics for a hospital prior pneumonia. She will also need diuresis, however given her sodium of 119 she will need some fluid hydration before diuresis. She is otherwise stable. I spoke with Dr. Kim who will admit the patient for further workup and stabilization. Decision to Disposition Date: Mar 04, 2018 Decision to Disposition Time: 16:39 Depart Departure Latest Vital Signs Vital Signs Date Time Temp Pulse Resp B/P (MAP) Pulse Ox O2 Delivery O2 Flow Rate FiO2 03/04/18 16:37 66 18 94 03/04/18 16:30 124/58 (80) 03/04/18 16:17 Nasal Cannula 2 03/04/18 13:35 98.9 Impression: Primary Impression: Hyponatremia Additional Impression: Hospital-acquired pneumonia Condition: Improved Disposition: Admitted from ER Referrals: ANA VILLALOBOS PA-C (PCP) Problem Qualifiers LAM FLOWERS MD Mar 04, 2018 13:55
[2018-03-04] MEDS ORDERED: ALBUTEROL/IPRATROPIUM 3 ML NEB NEB ONE (14:00)
--- NOTE | 2018-03-04 14:19 | RADIOLOGY IMAGING REPORT ---
[place] [facility] [place] Adelina Ballester[place] : 1935 MR: [id number] V: [id number] EXAM DATE: ORDERING PHYSICIAN: LAM FLOWERS TECHNOLOGIST: [place] [facility] [place] Adelina Ballesteros : 1935 Visit/Account:[id number] Date of Sevice: 03/04/2018 CHEST SINGLE AP HISTORY: Shortness of breath. COMPARISON: February 10, 2018. FINDINGS: Cardiomediastinal contours: The heart is enlarged. There has been sternotomy for valvular replacemen t. There is a cardiac pacemaker in the left deltopectoral groove. There is prominent vascular calci fication of the aorta. Lungs and pleura: There are new bilateral pleural effusions; left side greater than right. There is bilateral interstitial edema in the lung bases. The findings are suggestive congestive heart failure . Filter in the right lung base cannot be excluded. Bones/soft tissues: Osteopenia without fracture. IMPRESSION: 1. Cardiomegaly with moderate size left pleural effusion and small right pleural effusion. There is bibasilar interstitial edema and the findings are worrisome for congestive heart failure. Superimpo sed infiltrate cannot be excluded. 2. Status post sternotomy for valve replacement. 3. Left cardiac pacemaker. 4. Osteopenia. Report Dictated By: Piero Villegas MD at 03/04/2018 2:14 PM Report E-Signed By: Piero Villegas MD at 03/04/2018 2:16 PM WSN:[email or web address]
[2018-03-04 14:37] LABS: PLATELET COUNT, AUTOMATED 368 K/uL (150-450)
[2018-03-04] MEDS ORDERED: METO50TA19 PO (15:47)
[2018-03-04] MEDS ORDERED: FURO20TA19 PO (15:47)
[2018-03-04] MEDS ORDERED: WARF5TAB23 PO ×2 (15:52)
[2018-03-04] MEDS ORDERED: NS(*) 0.9% 1000 ML BAG 1,000 ML IV ONE (16:10)
[2018-03-04] MEDS ORDERED: PIPERACILLIN/TAZO*3.375GM VIAL 3.375 GM in NS(*) 0.9% 100 ML ADDVANT BAG 100 ML IVPB ONE (16:25)
[2018-03-04] MEDS ORDERED: VANCOMYCIN 1 GM ADDVIAL 1 GM in NS(*) 0.9% 250 ML ADDVAN BAG 250 ML IVPB ONE (16:25)
[2018-03-04] MEDS ORDERED: PIPERACILLIN/TAZO*3.375GM VIAL 3.375 GM ONE (16:58)
[2018-03-04] MEDS ORDERED: NS 0.9% IVPB PRN (17:00)
[2018-03-04 17:45] VITALS: BP 114/55
[2018-03-04] MEDS ORDERED: INFLUENZA VIRUS VAC 0.5 ML SYR IM ONLY ONE (18:00)
[2018-03-04 18:01] VITALS: BP 114/55
[2018-03-04] MEDS: SALMETEROL/FLUTIC 100/50 1 INH INH SCH (18:27)
[2018-03-04 19:59] VITALS: BP 133/55
[2018-03-04] MEDS ORDERED: FUROSEMIDE 40 MG/4 ML VIAL IVP ONE (20:55)
--- NOTE | 2018-03-04 20:59 | History & Physical ---
History of Present Illness Chief Complaint Low sodium History of Present Illness This patient presented to the emergency room after being found to have a low sodium level on routine labs. She also reports some increased shortness of breath and cough. She denies any fever or chills. History Problems: (1) Raynaud disease Status: Chronic (2) Essential hypertension Status: Chronic (3) Fracture of C1 vertebra, closed Status: Chronic (4) Cardiac pacemaker in situ Status: Chronic (5) Diverticulosis of colon Status: Chronic (6) Atrial fibrillation Status: Chronic (7) Ischemic colitis (8) PVD (peripheral vascular disease) Status: Chronic (9) Hyponatremia Status: Chronic (10) Hx of CABG Status: Chronic (11) History of ileostomy Status: Chronic (12) History of mitral valve replacement with bioprosthetic valve Status: Chronic Home Meds Active Scripts Fluticasone/Salmeterol (ADVAIR 100-50 DISKUS) 1 Each Disk.w.dev, 1 EACH INH BIDR for 14 Days, Prov:LEONEL TREVINO MD 02/14/18 Pantoprazole Sodium (PANTOPRAZOLE SODIUM) 40 Mg Tablet.dr, 1 TAB PO QDAY, #90 TAB.SR 4 Refills Prov:CHIP PEDRO MD 09/01/17 Simvastatin (SIMVASTATIN) 20 Mg Tablet, 1 TAB PO HS, #90 TAB 4 Refills Prov:CHIP PEDRO MD 10/05/16 [place]-3 Fatty Acids/Fish Oil (FISH OIL 1,000 MG SOFTGEL) 1 Each Capsule, 1 EACH PO QDAY, #30 CAPSULE Prov:JACQUELINE HAIRSTON PHARMD 08/06/14 Reported Medications Warfarin Sodium (WARFARIN SODIUM) 5 Mg Tablet, 5 MG PO QDAY, TAB 03/04/18 Furosemide (LASIX) 20 Mg Tablet, 1 TAB PO QDAY, TAB 03/04/18 Metoprolol Succinate (METOPROLOL SUCCINATE) 50 Mg Tab.er.24h, 1 TAB PO BID, TAB 03/04/18 Oxygen (OXYGEN) Inha, 2 L INH HS, L 01/29/16 Multivitamin (DAILY MULTIPLE VITAMIN) 1 Each Tablet, 1 TAB PO DAILY 05/17/14 Aspirin (ASPIR 81) 81 Mg Tablet.dr, 1 TAB PO QDAY 05/17/14 Discontinued Reported Medications Warfarin Sodium (WARFARIN SODIUM) 5 Mg Tablet, 5 MG PO QDAY, TAB 03/04/18 Warfarin Sodium (WARFARIN SODIUM) 5 Mg Tablet, 2.5-5 MG PO QDAY, TAB take as directed 02/14/18 Discontinued Scripts Sodium Chloride (SODIUM CHLORIDE) 1 Gm Tab, 1 GM PO BID, #60 TAB Prov:LEONEL TREVINO MD 02/14/18 Metoprolol Succinate (METOPROLOL SUCCINATE) 100 Mg Tab.er.24h, 1 TAB PO BID, # 180 TAB 4 Refills Prov:CHIP PEDRO MD 12/10/17 Allergies: Coded Allergies: latex (Verified Allergy, Mild, RASH, 02/10/18) mustard (Verified Allergy, Mild, 02/10/18) Patient History: FH: breast cancer SISTER, Age:71, Onset:55 SISTER, , Age:57 NIECE NIECE NIECE FH: diabetes mellitus FATHER, , Age:62 MOTHER, , Age:91 SON FH: heart disease FATHER, , Age:62 (mitral valve) MOTHER, , Age:91 SISTER, Age:81 FH: hypertension FH: lung disease SISTER, Age:81 FH: peptic ulcer disease SISTER, , Age:35 (perforated) FH: prostate cancer BROTHER, Age:76 FH: stroke MOTHER, , Age:91 Hx Smoking: Yes (1/2 to 1 ppd) Smoking Status: Current: Every Day Smoker, Heavy Tobacco Smoker Exposure to Second Hand Smoke?: No Caffeine Intake: Coffee, Tea, Soda Caffeine/Cups Per Day: 2 cups daily Hx Alcohol Use: No Hx Substance Use Disorder: No Review of Systems All Systems Reviewed/Normal: Yes, Except as Noted Respiratory: Shortness of Breath Exam Vital Signs Vital Signs Date Time Temp Pulse Resp B/P (MAP) Pulse Ox O2 Delivery O2 Flow Rate FiO2 03/04/18 19:59 98.3 67 16 133/55 (81) 98 Nasal Cannula 1.5 Neuro: No Gross deficits Eyes: PERRLA Cardiovascular: Regular Rate and Rhythm Respiratory: Other (Bilateral rhonchi) GI: Abd Soft and Non-Tender Extremities: No Edema Integumentary: No Cyanosis Medical Decision Making Data Points Result Diagram: 03/04/18 1432 03/04/18 1432 EKG / Imaging Imaging Chest x-ray reviewed. Assessment and Plan Problems: (1) Acute diastolic heart failure Status: Resolved Assessment & Plan: She did present with increased shortness of breath and her chest x-ray shows bilateral pleural effusions. We have requested a BNP and will give her a dose of Lasix. An echocardiogram and daily weight monitoring has also been ordered. (2) Hyponatremia Status: Chronic Assessment & Plan: She has had recurrent problems with hyponatremia, but her levels are lower now than they have been. We had previously placed her on sodium tablets, but it looks like these have been discontinued. Urine sodium and osmolality is pending. (3) Fracture of C1 vertebra, closed Status: Chronic Assessment & Plan: She did recently suffer a C1 fracture and remains in a collar. She is being followed by Dr. Navas as an outpatient. (4) Atrial fibrillation Status: Chronic Assessment & Plan: She is on chronic treatment with metoprolol and warfarin. Daily INR monitoring has been ordered. (5) Essential hypertension Status: Chronic Central Venous Access Medical Necessity for Access: Hemodynamic Monitoring, IV Access, Medication Administration Copies to: LUKAS CORDON MD Venous Thromboembolism Antithrombotics Is Pt On Any Antithrombotics?: Yes Exam Sepsis Risk: No Definite Risk LUKAS ROSE DO Mar 04, 2018 20:59
[2018-03-04 21:33] LABS: INR 2.25
[2018-03-04] MEDS: METOPROLOL SUCC XL 50 MG TABCR 50 MG TAB.ER.24H PO SCH (21:42)
[2018-03-04] MEDS: APAP/HYDROCODONE 325/5 TAB PO PRN (21:49)
[2018-03-04] MEDS: HYPROMELLOSE 0.4% LUB 15ML BTL OU PRN (21:50)
[2018-03-04 22:53] VITALS: BP 114/57
[2018-03-05 04:37] VITALS: BP 97/47
[2018-03-05] MEDS: SALMETEROL/FLUTIC 100/50 1 INH INH SCH ×2 (05:41→18:02)
[2018-03-05 06:09] LABS: PLATELET COUNT, AUTOMATED 335 K/uL (150-450)
[2018-03-05 06:20] LABS: INR 2.33
[2018-03-05 07:21] VITALS: BP 132/57
[2018-03-05] MEDS ORDERED: NS(*) 0.9% 1000 ML BAG 1,000 ML IV PRN (08:05)
[2018-03-05] MEDS: METOPROLOL SUCC XL 50 MG TABCR 50 MG TAB.ER.24H PO SCH ×2 (09:19→20:20)
[2018-03-05] MEDS: APAP/HYDROCODONE 325/5 TAB PO PRN (09:19)
[2018-03-05] MEDS: ASPIRIN 81 MG ENTERIC COATED PO SCH (09:19)
[2018-03-05] MEDS: SODIUM CHLORIDE 1 GR TAB PO SCH (09:20)
[2018-03-05] MEDS: NYSTATIN 5 ML UDCUP PO SCH ×4 (09:20→20:20)
[2018-03-05] MEDS: TOBRAMYCIN 0.3% OP SOLN 5 ML OD SCH ×4 (09:20→20:20)
[2018-03-05] MEDS: PIPERACILLIN/TAZO*3.375GM VIAL 3.375 GM in NS(*) 0.9% 100 ML ADDVANT BAG 100 ML IVPB SCH ×3 (09:37→20:20)
[2018-03-05] MEDS: NS(*) 0.9% 250 ML BAG 250 ML IVPB PRN (09:49)
--- NOTE | 2018-03-05 10:34 | Hospitalist Progress Note ---
Subjective Progress Notes Subjective The patient states she has a chronic cough but her cough has worsened recently and she has increased sputum production as well. She denies fever or chills. She had recent fracture of C1 due to a fall and was hospitalized from February 10 to February 14. Physical Exam Vital Signs Date Time Temp Pulse Resp B/P (MAP) Pulse Ox O2 Delivery O2 Flow Rate FiO2 03/05/18 07:21 98.2 66 17 132/57 (82) 90 Nasal Cannula 1.5 Intake and Output 03/06/18 06:59 Intake Total 240 ml Balance 240 ml Intake Oral 240 ml # Voids 2 Result Diagram: 03/05/18 0543 03/05/18 0543 Assessment and Plan Problems: (1) Acute diastolic heart failure Status: Resolved Assessment & Plan: She did present with increased shortness of breath and her chest x-ray shows bilateral pleural effusions. We have requested a BNP and will give her a dose of Lasix. An echocardiogram and daily weight monitoring has also been ordered. Her last echo on record is from 2015. (2) Pneumonia Status: Acute Assessment & Plan: CXR shows CHF but can't rule out infiltrate. The patient has had increased cough and sputum production. She did receive one dose of Zosyn in ER. Will continue for now. She is afebrile. WBC is normal. (3) Hyponatremia Status: Chronic Assessment & Plan: She has had recurrent problems with hyponatremia, but her levels are lower now than they have been. We had previously placed her on sodium tablets, but it looks like these have been discontinued. Urine sodium and osmolality is pending. (4) Fracture of C1 vertebra, closed Status: Chronic Assessment & Plan: She did recently suffer a C1 fracture and remains in a collar. She is being followed by Dr. Navas as an outpatient. (5) Atrial fibrillation Status: Chronic Assessment & Plan: She is on chronic treatment with metoprolol and warfarin. Daily INR monitoring has been ordered. The patient is not sure about her Coumadin dose. Will need to talk with her family. (6) Essential hypertension Status: Chronic Assessment & Plan: The patient takes metoprolol and Lasix at home. Will continue metoprolol. Central Venous Access Medical Necessity for Access: Hemodynamic Monitoring, IV Access, Medication Administration Time Spent on Plan of Care: < 30 min Exam Sepsis Risk: No Definite Risk LY HICKEY MD Mar 05, 2018 10:34
[2018-03-05 11:21] VITALS: BP 127/52
[2018-03-05] MEDS ORDERED: WARF5TAB23 PO (11:43)
[2018-03-05 11:47] VITALS: Ht 165.1 cm; Wt 48.2 kg
[2018-03-05] MEDS ORDERED: WARFARIN SOD 5 MG TAB PO SCH (13:00)
[2018-03-05 15:02] VITALS: BP 133/50
[2018-03-05 20:15] VITALS: BP 139/53
[2018-03-05 23:47] VITALS: BP 142/70
[2018-03-06 02:47] VITALS: BP 157/70
[2018-03-06] MEDS: PIPERACILLIN/TAZO*3.375GM VIAL 3.375 GM in NS(*) 0.9% 100 ML ADDVANT BAG 100 ML IVPB SCH (02:52)
[2018-03-06] MEDS: APAP/HYDROCODONE 325/5 TAB PO PRN ×2 (02:59→15:30)
[2018-03-06] MEDS: SALMETEROL/FLUTIC 100/50 1 INH INH SCH ×2 (05:26→17:04)
[2018-03-06 06:20] LABS: PLATELET COUNT, AUTOMATED 381 K/uL (150-450)
[2018-03-06 07:19] VITALS: BP 149/54
[2018-03-06 08:01] VITALS: BP 138/55
[2018-03-06] MEDS: HYPROMELLOSE 0.4% LUB 15ML BTL OU PRN (08:11)
[2018-03-06 08:25] LABS: INR 3.11
[2018-03-06] MEDS: TOBRAMYCIN 0.3% OP SOLN 5 ML OD SCH ×5 (09:08→20:34)
[2018-03-06] MEDS: SODIUM CHLORIDE 1 GR TAB PO SCH (09:08)
[2018-03-06] MEDS: ASPIRIN 81 MG ENTERIC COATED PO SCH (09:08)
[2018-03-06] MEDS: guaiFENesin 600 MG TABCR PO SCH ×2 (09:08→20:34)
[2018-03-06] MEDS: METOPROLOL SUCC XL 50 MG TABCR 50 MG TAB.ER.24H PO SCH ×2 (09:08→20:34)
[2018-03-06] MEDS: AMOX/CLAV 875 MG TAB PO SCH ×2 (09:08→16:40)
[2018-03-06] MEDS: NYSTATIN 5 ML UDCUP PO SCH ×4 (09:08→20:34)
[2018-03-06] MEDS ORDERED: FUROSEMIDE 40 MG/4 ML VIAL IVP ONE (09:45)
--- NOTE | 2018-03-06 09:46 | Hospitalist Progress Note ---
Subjective Progress Notes Subjective Staff reporting a productive cough overnight. The patient reports that she is feeling overall better from admission (i.e. less SOB). Physical Exam Vital Signs Date Time Temp Pulse Resp B/P (MAP) Pulse Ox O2 Delivery O2 Flow Rate FiO2 03/06/18 08:03 89 Nasal Cannula 1.5 03/06/18 08:01 98.1 71 12 138/55 (82) General Appearance: Alert, Awake, No Acute Distress Respiratory: Other (Insp crackles in right base and decreased bs 1/3 up left) Extremities: No Edema Result Diagram: 03/06/1854203/06/18542 Assessment and Plan Problems: (1) Acute diastolic heart failure Status: Resolved Assessment & Plan: She did present with increased shortness of breath and her chest x-ray showed worsening bilateral pleural effusions. An echocardiogram is still pending and daily weight monitoring has also been ordered. Her last echo on record is from 2015, which had an EF of 57%. Will give another dose of IV Lasix. Repeat CXR in the morning. (2) Pneumonia Status: Acute Assessment & Plan: CXR shows CHF but can't rule out infiltrate. The patient has had increased cough and sputum production. She was on Zosyn. Will switch to Augmentin. She is afebrile. WBC is normal. (3) Hyponatremia Status: Chronic Assessment & Plan: She has had recurrent problems with hyponatremia, but her levels are lower now than they have been. 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 We had previously placed her on sodium tablets, but it looks like these have been discontinued. Those have been restarted. Her sodium is increasing. Will recheck this afternoon because she will be getting Lasix. (4) Fracture of C1 vertebra, closed Status: Chronic Assessment & Plan: She did recently suffer a C1 fracture and remains in a collar. She is being followed by Dr. Navas as an outpatient. (5) Atrial fibrillation Status: Chronic Assessment & Plan: She is on chronic treatment with metoprolol and warfarin. Daily INR monitoring has been ordered. INR is 3.11, so will hold and decrease dose for tomorrow. (6) Essential hypertension Status: Chronic Assessment & Plan: The patient takes metoprolol and Lasix at home. Will continue metoprolol. Central Venous Access Medical Necessity for Access: Hemodynamic Monitoring, IV Access, Medication Administration Exam Sepsis Risk: No Definite Risk LEONEL TREVINO MD Mar 06, 2018 09:46
[2018-03-06 12:29] VITALS: BP 136/62
[2018-03-06 15:31] VITALS: BP 111/56
[2018-03-06] MEDS ORDERED: POTASSIUM CHL 10 MEQ TABCR PO ONE (17:20)
[2018-03-06 20:01] VITALS: BP 163/63
--- NOTE | 2018-03-06 20:23 | Miscellaneous Provider Note ---
Miscellaneous Provider Note Note The patient was found sitting on the floor at the foot of her bed. She reported that she slipped. She had some left hip pain that was mild. She was able to bear weight and ambulate to bed with assistance. On exam, she has no bruising over the hip or pain with palpation. Staff reports that she has been more confused this evening. Will try Melatonin to help with sleep. She has a bed alarm on. LEONEL TREVINO MD Mar 06, 2018 20:23
[2018-03-06] MEDS: MELATONIN 3 MG TAB PO SCH (21:05)
[2018-03-07 04:30] VITALS: BP 141/54
[2018-03-07] MEDS: APAP/HYDROCODONE 325/5 TAB PO PRN ×2 (04:37→15:43)
[2018-03-07] MEDS: SALMETEROL/FLUTIC 100/50 1 INH INH SCH ×2 (05:49→17:08)
[2018-03-07 06:25] LABS: PLATELET COUNT, AUTOMATED 335 K/uL (150-450)
[2018-03-07 06:31] LABS: INR 3.04
--- NOTE | 2018-03-07 06:56 | RADIOLOGY IMAGING REPORT ---
FACILITY: [facility] PATIENT NAME: Adelina Ballesteros : 1935 MR: [id number] V: [id number] EXAM DATE: ORDERING PHYSICIAN: LEONEL TREVINO TECHNOLOGIST: Location: [facility] - [place] Patient: Adelina Balletseros : 1935 Visit/Account:[id number] Date of Sevice: 03/07/2018 CHEST SINGLE AP HISTORY: Pneumonia COMPARISON: 03/04/2018 FINDINGS: Cardiomediastinal contours: Median sternotomy with mitral valve replacement. Left subclavian pacemake r leads. Lungs and pleura: Moderate left pleural effusion with adjacent airspace disease, unchanged. Stable co nsolidation of the right lung with a small right pleural effusion. Prominence of the pulmonary vascul arity with diffuse reticular opacities within the remainder of both lungs. No pneumothorax. Bones/soft tissues: Normal Other findings: None significant IMPRESSION: 1. No interval change. Report Dictated By: Edis Cronin MD at 03/07/2018 6:50 AM Report E-Signed By: Edis Cronin MD at 03/07/2018 6:52 AM WSN:[id number]
[2018-03-07] MEDS ORDERED: FUROSEMIDE 40 MG/4 ML VIAL IVP ONE (07:30)
--- NOTE | 2018-03-07 09:03 | Hospitalist Progress Note ---
Subjective Progress Notes Subjective This patient was admitted for heart failure. She had a fall overnight and is complaining of pain in the left ribs. Patient Complains of: Cardiovascular: No: Chest Pain Respiratory: No: Shortness of Breath Physical Exam Vital Signs Date Time Temp Pulse Resp B/P (MAP) Pulse Ox O2 Delivery O2 Flow Rate FiO2 03/07/18 04:30 98.1 68 141/54 (83) 92 1.5 03/06/18 20:01 17 Nasal Cannula Cardiovascular: Regular Rate and Rhythm Respiratory: Clear to Auscultation Musculoskeletal: Other (Bruise in left flank.) Result Diagram: 03/07/18 0539 03/07/18 0539 Imaging Chest x-ray reviewed. Assessment and Plan Problems: (1) Acute diastolic heart failure Status: Resolved Assessment & Plan: She did present with increased shortness of breath and her chest x-ray showed worsening bilateral pleural effusions. An echocardiogram is pending official reports. Daily weights are essentially unchanged and her pleural effusion persists. We will give an additional dose of Lasix today. (2) Pneumonia Status: Acute Assessment & Plan: Her chest x-ray could not rule out an infiltrate. She is afebrile and her WBC has been normal. She was started on Zosyn and later switched to Augmentin. Cultures have been negative. (3) Hyponatremia Status: Chronic Assessment & Plan: She has had recurrent problems with hyponatremia, but her levels were lower now than they have been. We had previously placed her on sodium tablets, but it looks like these have were discontinued prior to admission. The sodium supplements have been restarted and her levels are gradually improving. (4) Fracture of C1 vertebra, closed Status: Chronic Assessment & Plan: She did recently suffer a C1 fracture and remains in a collar. She is being followed by Dr. Navas as an outpatient. (5) Atrial fibrillation Status: Chronic Assessment & Plan: She is on chronic treatment with metoprolol and warfarin. Her INR has been slightly above therapeutic range. Her warfarin dose was adjusted yesterday. (6) Essential hypertension Status: Chronic Assessment & Plan: She is on chronic treatment with metoprolol. Central Venous Access Medical Necessity for Access: Hemodynamic Monitoring, IV Access, Medication Administration Exam Sepsis Risk: No Definite Risk LUKAS ROSE DO Mar 07, 2018 09:03
[2018-03-07] MEDS: guaiFENesin 600 MG TABCR PO SCH ×2 (09:31→20:45)
[2018-03-07] MEDS: AMOX/CLAV 875 MG TAB PO SCH ×2 (09:31→18:27)
[2018-03-07] MEDS: TOBRAMYCIN 0.3% OP SOLN 5 ML OD SCH ×5 (09:31→20:46)
[2018-03-07] MEDS: METOPROLOL SUCC XL 50 MG TABCR 50 MG TAB.ER.24H PO SCH ×2 (09:32→20:45)
[2018-03-07] MEDS: SODIUM CHLORIDE 1 GR TAB PO SCH (09:32)
[2018-03-07] MEDS: ASPIRIN 81 MG ENTERIC COATED PO SCH (09:32)
[2018-03-07] MEDS: NYSTATIN 5 ML UDCUP PO SCH ×4 (09:32→20:46)
--- NOTE | 2018-03-07 09:42 | RADIOLOGY IMAGING REPORT ---
FACILITY: [facility] PATIENT NAME: Adelina Ballesteros : 1935 MR: [id number] V: [id number] EXAM DATE: ORDERING PHYSICIAN: LUKAS ROSE TECHNOLOGIST: Location: [facility] Patient: Adelina Ballesteros : 1935 Visit/Account:[id number] Date of Sevice: 03/07/2018 Left ribs with PA chest INDICATION: Fall. Rib pain. COMPARISON: Prior chest radiograph from earlier this morning and 03/04/2018 are reviewed. FINDINGS: Chest radiograph is unchanged from earlier this morning. There is a chronic appearing left-sided pleu ral effusion. There are chronic interstitial opacities seen throughout both lungs with chronic pleura l parenchymal opacities in the right lung base. No pneumothorax. Heart size and mediastinal contours are unchanged. Pacemaker leads and postoperative changes from valve surgery and median sternotomy are stable. Thoracic aorta is densely atherosclerotic. Images of the left ribs demonstrate an acute, minimally displaced 10th rib fracture laterally. This i s seen in proximity to a marker placed by the patient. No other fractures. IMPRESSION: 1. Stable appearance of the chest radiograph with chronic interstitial opacities and left greater dipesh n right pleural-parenchymal opacities. 2. Acute, minimally displaced left 10th rib fracture Report Dictated By: Logan Vaughan at 03/07/2018 9:31 AM Report E-Signed By: Logan Vaughan at 03/07/2018 9:37 AM WSN:[id number]
--- NOTE | 2018-03-07 10:43 | Antimicrobial Stewardship ---
Antimicrobial Time Out Antimicrobial Stewardship MD Service: Hospitalist Indications: HAP Antimicrobial Used Zosyn IV, transitioned to Augmentin Start Date: Mar 05, 2018 Culture Results: Yes (Sputum culture pending) Eligible for PO Conversion Eligable for PO Conversion: Yes Reviewed with Provider Reviewed w/ Provider on Rounds: Yes Date Reviewed w/ Provider: Mar 07, 2018 Comments Comments 82 yo F with recent cervical fracture who presented to the ED with SOB. Afebrile, WBC wnl Chest Xray- effusions, possible infiltrate Started on Zosyn, switched to oral Augmentin 875mg po BID, first day of treatment on 03/05/18- today is day 3, recommend 5-7 days. Rachael Schofield, PharmD, BCOP RACHAEL SCHOFIELD Mar 07, 2018 10:43
[2018-03-07 11:28] VITALS: BP 124/60
[2018-03-07] MEDS ORDERED: WARFARIN SOD 2.5 MG TAB PO SCH (13:00)
[2018-03-07 15:12] VITALS: BP 106/51
[2018-03-07 18:33] VITALS: BP 127/46
[2018-03-07] MEDS: MELATONIN 3 MG TAB PO SCH (20:45)
[2018-03-07 23:10] VITALS: BP 125/48
[2018-03-08] MEDS: TOBRAMYCIN 0.3% OP SOLN 5 ML OD SCH ×6 (00:40→23:42)
[2018-03-08 03:37] VITALS: BP 140/57
[2018-03-08 05:40] LABS: INR 2.91
[2018-03-08] MEDS: SALMETEROL/FLUTIC 100/50 1 INH INH SCH ×2 (05:48→17:52)
--- NOTE | 2018-03-08 06:43 | RADIOLOGY IMAGING REPORT ---
FACILITY: [facility] PATIENT NAME: Adelina Ballesteros : 1935 MR: [id number] V: [id number] EXAM DATE: ORDERING PHYSICIAN: LUKAS ROSE [place]CHN[place]: [place] [facility] [place] Adelina Ballesteros : 1935 Visit/Account:[id number] Date of Sevice: 03/08/2018 CHEST SINGLE AP HISTORY: Congestive heart failure COMPARISON: 03/07/2018 FINDINGS: Cardiomediastinal contours: Unchanged. Median sternotomy and valve replacement. Lungs and pleura: Interstitial-alveolar opacities in the perihilar distribution have become slightly less confluent. Bilateral pleural effusions, left greater than right have mildly decreased. No pneumo thorax. Bones/soft tissues: Normal Other findings: Left subclavian pacemaker leads. IMPRESSION: 1. Persistent interstitial opacities with decreasing bilateral alveolar opacities. Slightly decreasin g bilateral pleural effusions. Findings may be secondary to improving pulmonary edema. Superimposed i nfection or aspiration not excluded. Recommend continued radiographic surveillance. Report Dictated By: Edis Cronin MD at 03/08/2018 6:35 AM Report E-Signed By: Edis Cronin MD at 03/08/2018 6:39 AM WSN:[id number]
[2018-03-08 07:47] VITALS: BP 154/68
[2018-03-08] MEDS: AMOX/CLAV 875 MG TAB PO SCH ×2 (08:43→17:16)
[2018-03-08] MEDS: APAP/HYDROCODONE 325/5 TAB PO PRN ×3 (08:44→23:42)
[2018-03-08] MEDS: guaiFENesin 600 MG TABCR PO SCH ×2 (08:44→21:03)
[2018-03-08] MEDS: ASPIRIN 81 MG ENTERIC COATED PO SCH (08:44)
[2018-03-08] MEDS: METOPROLOL SUCC XL 50 MG TABCR 50 MG TAB.ER.24H PO SCH ×2 (08:44→21:03)
[2018-03-08] MEDS: NYSTATIN 5 ML UDCUP PO SCH ×4 (08:44→21:03)
--- NOTE | 2018-03-08 09:19 | Hospitalist Progress Note ---
Subjective Progress Notes Subjective The patient denies any significant rib pain. Staff reported about 450cc of PVR after straight cath this morning. Physical Exam Vital Signs Date Time Temp Pulse Resp B/P (MAP) Pulse Ox O2 Delivery O2 Flow Rate FiO2 03/08/18 07:47 97.6 65 16 154/68 (96) 93 Nasal Cannula 1.0 General Appearance: Alert, Awake, No Acute Distress Neuro: Other (Knows where she is.) Respiratory: Other (Insp crackles in the right base and decreased BS in the left base) Result Diagram: 03/07/18 0539 03/08/18 0514 Assessment and Plan Problems: (1) Pneumonia Status: Acute Assessment & Plan: Her chest x-ray could not rule out an infiltrate. She is afebrile and her WBC has been normal. She was started on Zosyn and later switched to Augmentin. Cultures have been negative. Because it is a right sided pneumonia and she is wearing a hard neck brace, concerned about her aspiration risk. Will ask ST to see her. (2) Rib fracture Status: Acute Assessment & Plan: She had a fall on 03/06. She has some minor left sided pain. Because of her frailty, rib fracture and the cervical fracture; will ask OT/ PT to see. (3) Acute diastolic heart failure Status: Resolved Assessment & Plan: She did present with increased shortness of breath and her chest x-ray showed worsening bilateral pleural effusions. An echocardiogram is pending official reports. Daily weights are essentially unchanged and her pleural effusion persists. We restart oral Lasix today. (4) Hyponatremia Status: Chronic Assessment & Plan: She has had recurrent problems with hyponatremia, but her levels were lower now than they have been. We had previously placed her on sodium tablets, but it looks like these have were discontinued prior to admission. The sodium supplements were restarted and will increase to bid today. (5) Urine retention Status: Acute Assessment & Plan: She had 450cc of urine after straight catheterization today. Will follow. I am hesitant to add any medications with anticholinergic or orthostatic hypotension affects to her. (6) Fracture of C1 vertebra, closed Status: Chronic Assessment & Plan: She did recently suffer a C1 fracture and remains in a collar. She is being followed by Dr. Navas as an outpatient. (7) Atrial fibrillation Status: Chronic Assessment & Plan: She is on chronic treatment with metoprolol and warfarin. Her INR has been slightly above therapeutic range. Her warfarin dose was adjusted. (8) Essential hypertension Status: Chronic Assessment & Plan: She is on chronic treatment with metoprolol. Central Venous Access Medical Necessity for Access: Hemodynamic Monitoring, IV Access, Medication Administration Exam Sepsis Risk: No Definite Risk Problem Qualifiers (1) Rib fracture: Laterality: left LEONEL TREVINO MD Mar 08, 2018 09:19
[2018-03-08] MEDS: FUROSEMIDE 20 MG TAB PO SCH (10:01)
[2018-03-08] MEDS: SODIUM CHLORIDE 1 GR TAB PO SCH ×2 (10:01→21:03)
[2018-03-08] MEDS: HYPROMELLOSE 0.4% LUB 15ML BTL OU PRN ×4 (10:04→23:46)
[2018-03-08 11:00] VITALS: BP 138/55
[2018-03-08] MEDS ORDERED: WARFARIN SOD 5 MG TAB PO SCH (13:00)
[2018-03-08] MEDS ORDERED: WARFARIN SOD 2.5 MG TAB PO SCH (13:00)
[2018-03-08 15:03] VITALS: BP 115/65
[2018-03-08 19:25] VITALS: BP 166/69
[2018-03-08] MEDS: MELATONIN 3 MG TAB PO SCH (21:03)
[2018-03-08 23:12] VITALS: BP 146/61
[2018-03-09] VITALS (8 sets, daily range): BP systolic 137–183; BP diastolic 51–82
[2018-03-09 05:50] LABS: PLATELET COUNT, AUTOMATED 353 K/uL (150-450)
[2018-03-09 05:54] LABS: INR 3.22
[2018-03-09] MEDS: SALMETEROL/FLUTIC 100/50 1 INH INH SCH ×2 (06:02→18:00)
[2018-03-09] MEDS ORDERED: BENZOCAINE 20% 11.9 GM TUBE 11.9 GM TUBE DT PRN (07:55)
[2018-03-09] MEDS ORDERED: MAGNESIUM SUL* 4 GM/100 ML BAG 100 ML IVPB ONE (08:00)
--- NOTE | 2018-03-09 08:27 | Hospitalist Progress Note ---
Subjective Progress Notes Subjective She c/o mouth sore. No fever. She reports some "callouses" on right hand finger tips. Physical Exam Vital Signs Date Time Temp Pulse Resp B/P (MAP) Pulse Ox O2 Delivery O2 Flow Rate FiO2 03/09/18 07:55 97.6 65 14 161/61 (94) 98 Nasal Cannula 3.0 General Appearance: Alert, Awake ENT: Other (small linear ulcer between mandible/buccal mucosa) Neck: Other (c-collar in place) Cardiovascular: Other (Fairly regular with distant tones) Respiratory: Other (rales at bases/diminished throughout) Chest: Other (Pacer left upper chest) GI: Soft and Non-Tender (thin) Extremities: Warm, Pulses (right radial pulse normal), Other (small amount of dry ulceration/tissue loss in the laverne of several fingers on right hand) Integumentary: Pallor (right hand/fingers) Psych: Alert & Oriented X3 Result Diagram: 03/09/1851903/09/18519 Assessment and Plan Problems: (1) Pneumonia Status: Acute Assessment & Plan: Her chest x-ray could not rule out an infiltrate. She is afebrile and her WBC has been normal. She was started on IV Zosyn initially and later switched to Augmentin. Cultures have been negative. Because it is a right-sided pneumonia and she is wearing a hard neck brace, concerned about her aspiration risk. Will have ST see her. (2) Rib fracture Status: Acute Assessment & Plan: She had a fall on 03/06. She has some minor left-sided pain. Because of her frailty, rib fracture and the cervical fracture, will have OT/ PT see. (3) Acute diastolic heart failure Status: Resolved Assessment & Plan: She did present with increased shortness of breath and her chest x-ray showed worsening bilateral pleural effusions. An echocardiogram is pending official reports. Daily weights are essentially unchanged. Her pleural effusions appear to be slightly improved. We restarted oral Lasix yesterday. (4) Hyponatremia Status: Chronic Assessment & Plan: She has had recurrent problems with hyponatremia, but her levels were lower now than they have been. We had previously placed her on sodium tablets, but it looks like these have were discontinued prior to admission. The sodium supplements were restarted. Monitor labs. (5) Urine retention Status: Acute Assessment & Plan: She had 450cc of urine after straight catheterization today. She was able to void through the evening/night. Check PVR today. Would like to avoid adding any medications with anticholinergic or orthostatic hypotension affects to her. (6) Fracture of C1 vertebra, closed Status: Chronic Assessment & Plan: She did recently suffer a C1 fracture and remains in a collar. She is being followed by Dr. Navas as an outpatient. (7) Atrial fibrillation Status: Chronic Assessment & Plan: She is on chronic treatment with metoprolol and warfarin. She has pacemaker in place. Her INR has been slightly above therapeutic range. Her warfarin dose was adjusted. Following daily INR. (8) Essential hypertension Status: Chronic Assessment & Plan: She is on chronic treatment with metoprolol. (9) Hypomagnesemia Status: Acute Assessment & Plan: Will replace with IV supplement. Watch labs. (10) Raynaud disease Status: Chronic Assessment & Plan: She has rather significant findings in her right hand/ fingers. She does continue to smoke. She is on aspirin and warfarin. Central Venous Access Medical Necessity for Access: Hemodynamic Monitoring, IV Access, Medication Administration Exam Sepsis Risk: No Definite Risk Problem Qualifiers (1) Rib fracture: Laterality: left TIMO HICKEY MD Mar 09, 2018 08:27
[2018-03-09] MEDS: TOBRAMYCIN 0.3% OP SOLN 5 ML OD SCH ×4 (08:31→20:19)
[2018-03-09] MEDS: AMOX/CLAV 875 MG TAB PO SCH (08:32)
[2018-03-09] MEDS: NS(*) 0.9% 250 ML BAG 250 ML IVPB PRN (08:45)
[2018-03-09] MEDS: METOPROLOL SUCC XL 50 MG TABCR 50 MG TAB.ER.24H PO SCH (08:53)
[2018-03-09] MEDS: ASPIRIN 81 MG ENTERIC COATED PO SCH (08:53)
[2018-03-09] MEDS: guaiFENesin 600 MG TABCR PO SCH (08:53)
[2018-03-09] MEDS: FUROSEMIDE 20 MG TAB PO SCH (08:53)
[2018-03-09] MEDS: SODIUM CHLORIDE 1 GR TAB PO SCH (08:53)
--- NOTE | 2018-03-09 10:08 | SLP EVALUATION SUMMARY REPORT ---
SPEECH THERAPY ASSESSMENT Physician: Jb De Leon MD Clinician: Michelle German MS, CCC-VENEREAL DISEASE CONTROL HEAD Type of Assessment: Dysphagia Evaluation, Cognitive Linguistic Assessment Patient: Adelina Ballesteros : 1935, 82yrs Evaluation Date: 03/09/2018 BACKGROUND The patient is an 82 year old female admitted to [facility] following ER visit on 03/04 w/ shortness of breath, cough, and low sodium levels. CXR illustrated bilateral pleural effusion. Patient was recently hospitalized from February 10- d/ t C1 fx s/p fall, and experienced an additional fall during current hospitalization course on 03/06/18. PT/OT report increased confusion vs status at initial admission. An ST swallow evaluation was ordered to further evaluate swallow structure and function due to concern for aspiration pneumonia and possible oral dysphagia exacerbation resulting from cervical collar placement. An ST evaluation was also warranted to analyze cognitive linguistic status d/t reports of increased confusion and hx of repeated falls. Primary Medical Diagnosis: acute diastolic heart failure Additional Medical Hx: pneumonia, hyponatremia, C1 fx, A fib, HTN Pain Scale (0-10): Patient w/ no reports of pain. LOC / Participation: alert, pleasant, cooperative. Follows instructions: yes Orientation: A&O x4. Functional Communication Deficits impact swallow function/safety, or response to therapy: No. VOICE WFL relative to age. Mildly decreased volume and breathiness. COGNITION/COMMUNICATION Pt was seen at the bedside for cognitive linguistic assessment using the [facility] Mental Status examination and informal evaluation procedures. Pt obtained a 22/30 (27/30 = WFL), with deficits primarily noted during tasks requiring working memory, executive function, and problem solving. Mild deficits were also noted during immediate and short-term recall tasks; however, pt demonstrated potential for new learning across repeated practice opportunities. Relative areas of strength were noted during activities requiring temporal, environmental, and situational orientation, verbal fluency, and sustained attention. Pt executed basic instructions without error, although processing speed was somewhat delayed. Pt also expressed complex information without difficulty, and demonstrated adequate comprehension of hospitalization course, medical diagnoses, and plan of care. Overall, pt presents with mild cognitive linguistic deficits and is safe for return to prior living situation with ongoing support via family and services for completion of ADL/IADL activities. Results indicate the patient may demonstrate difficulty participating in the following IADL tasks: Recall of medication regimen Independent financial institution treasurer Appointment scheduling/coordination/attendance Safety with ADLs ST services are not warranted for further tx in an acute setting at this time. However, pt may be an appropriate candidate for speech therapy or f/u w/ ST in subacute rehab environment. DYSPHAGIA Sialorrhea: No Xerostomia: No Supplemental Oxygen Use: Yes. 3.0 L via NC. Oxygen Saturation: 97%. Remains stable across entirety of PO trials Respiratory Rate: Remains stable throughout food/liquid trials COPD Dx: No Pain with Swallow: Denies Oral Structure and Function: Oromotor exam was remarkable for edentulism, decreased labial seal, and mildly decreased coordination, speed, and strength of oral musculature. Top and bottom dentures were placed prior to initiation of PO trials. Patient able to elicit strong protective cough when cued, although cough was notably wet at baseline. Administered PO trials of thin liquids via straw and cup sip, pureed solids, mech soft solids, regular solids, and medications in conjunction with RN. Oral phase was characterized by prolonged mastication 2/2 decreased mandibular ROM with cervical collar placement. Pt also with oral holding pattern. Laryngeal movement occurred 3-4 seconds after material entered oral cavity. Moderate post swallow residue was noted with trials of hard, dry consistencies. Pt successfully cleared residue with liquid wash x2. With administration of medications, pt exhibited plosive, anterior spillage of thin liquids consistent with decreased generation of labial seal. Trace anterior spillage was also noted with trials of soft and regular solids during mastication phase. Delayed cough response and vocal changes were noted with successive trials of thin liquids. Respiratory/Swallow Coordination: WFL ST ASSESSMENT SUMMARY DYSPHAGIA Overall, pt presents with mild to moderately elevated risk for aspiration 2/2 to generalized weakness, oral phase dysphagia, compromised respiratory status, and observed cough response/vocal changes with thin liquid trials. Recommend completion of MBSS to objectively analyze oropharyngeal anatomy/physiology. Speech Therapy Need ST will continue to analyze oropharyngeal swallow status and make appropriate diet advancement recommendations. ST will also continue to provide educational information re: compensatory strategies to minimize risk for aspiration pneumonia and promote safe, efficient tolerance of least restrictive diet. RECOMMENDATIONS 1. Diet Modification: Dysphagia III, thin liquids, medications one at a time. 2. Compensatory Techniques: regular oral hygiene following meals, upright positioning during PO intake, small bites/small sips, alternate bites/sips to clear oral residue, empty oral cavity in between bites/sips. 3 Pills: one at a time, with thin liquids. 4. Supervision with meals/snacks: not warranted. 5. [facility] [place] PLAN OF CARE 1. Patient will receive education regarding safe swallow precautions, diet modification recommendations, and compensatory techniques, and will provide verbal/visual demonstration of comprehension. 2. The patient will safely and efficiently tolerate regular diet and thin liquids with independent implementation of safe swallow strategies and minimized s/s of dysphagia. 3. Patient will participate in modified barium swallow study to objectively analyze oropharyngeal anatomy and physiology, and to identify suspected areas of weakness/decreased coordination for appropriate development of diet modification recommendations, exercise program, and compensatory strategies as necessary. Rehabilitation Prognosis: Good. Strong family support. Good insight. Strong motivation. Thank you for this referral. Michelle German M.S., [facility]-VENEREAL DISEASE CONTROL HEAD Speech Therapist Physician Signature Date [*] MTDD
--- NOTE | 2018-03-09 11:30 | RADIOLOGY IMAGING REPORT ---
FACILITY: PATIENT NAME: Adelina Ballesteros : 1935 MR: [id number] V: [id number] EXAM DATE: ORDERING PHYSICIAN: TIMO HICKEY TECHNOLOGIST: Location: [facility] Patient: Adelina Ballesteros : 1935 Visit/Account:[id number] Date of Sevice: 03/09/2018 Single view of the chest Indication: Increased oxygen requirement. Comparison: Examination of the chest from yesterday. Findings: Heart is enlarged. Stable appearance dual-lead pacer. Status post sternotomy and cardiac valve replac ement. There is progressive moderate to large left-sided pleural effusion with concomitant left perih ilar and left lower lobe airspace consolidation. Diffuse interstitial coarsening is noted throughout with parenchymal scarring in the apices. Small right-sided pleural effusion which is stable. IMPRESSION: 1. Compared to previous examination from yesterday, progressive moderate to large left-sided pleural effusion with progressive airspace consolidation in the left hilum and lower lobe. Stable small right -sided pleural effusion 2. Severe diffuse interstitial lung disease Report Dictated By: Jose Paulino MD at 03/09/2018 11:24 AM Report E-Signed By: Jose Paulino MD at 03/09/2018 11:27 AM WSN:[id number]
[2018-03-09] MEDS ORDERED: PIPERACILLIN/TAZO*3.375GM VIAL 3.375 GM in NS(*) 0.9% 100 ML ADDVANT BAG 100 ML IVPB SCH (12:30)
[2018-03-09] MEDS ORDERED: IOPAMIDOL 76% 100 ML INFUS BTL 100 ML ONE (12:37)
[2018-03-09] MEDS: PIPERACILLIN/TAZO*3.375GM VIAL 3.375 GM in NS(*) 0.9% 100 ML ADDVANT BAG 100 ML IVPB SCH ×2 (14:18→20:19)
--- NOTE | 2018-03-09 16:01 | RADIOLOGY IMAGING REPORT ---
FACILITY: [facility] [place] PATIENT NAME: Adelina Ballesteros : 1935 MR: [id number] V: [id number] EXAM DATE: ORDERING PHYSICIAN: TIMO HICKEY TECHNOLOGIST: Location: [facility] Patient: Adelina Ballesteros : 1935 Visit/Account:[id number] Date of Sevice: 03/09/2018 EXAMINATION: CT Thorax W/Contrast HISTORY: Pleural effusion versus mass.. Shortness of breath. TECHNIQUE: Spiral scan was obtained through the chest during injection of nonionic iodinated intrave nous contrast. One of the following dose optimization techniques was utilized in the performance of this exam: Automated exposure control; adjustment of the mA and/or kV according to the patient's size ; or use of an iterative reconstruction technique. Specific details can be referenced [facility] exam operational policy. Contrast: 75 mL of IV Isovue-370. COMPARISON STUDIES: Correlation made with chest x-ray 03/09/2018. FINDINGS: Lungs / pleura: Small to moderate left pleural effusion is present, small right pleural effusion is present. There is consolidation of the left lower lobe. There appear to be a few air bronchograms. No definite mass identified. Patchy airspace opacity is present in the right lower lobe as well as the right middle lobe. Extensive interstitial changes with septal pleural thickening and honeycombin g present in both lungs. Mediastinum / mau: There is no hilar adenopathy. No definite mediastinal adenopathy. There appears to be some fluid and debris in the midesophagus. No obvious wall thickening but if there is concern for esophageal pathology, esophagram may be considered. Heart / pericardium: Heart is markedly enlarged. Intracardiac leads are noted. Patient status post median sternotomy and mitral valve replacement. Vessels: Main pulmonary artery is markedly enlarged measuring approximately 4.5 cm in maximal diamet er. There is also dilatation of the main pulmonary arteries bilaterally. Extensive atherosclerotic changes are present in the aorta. Musculoskeletal / Body wall: Degenerative changes are present in the thoracic spine. Lymph node assessment: Negative Lower neck: There are extensive collateralization of vascular structures in the lower neck, this may be indicative of a stenotic left subclavian vein. Upper abdomen: Negative IMPRESSION: 1. Moderate left pleural effusion, small right pleural effusion. 2. Consolidation in the left lower lobe without definite mass. There is also consolidation and infi ltrate in the right middle and lower lobes, findings may be indicative of an infectious or inflammato ry process, clinically correlate. 3. Extensive interstitial changes and honeycombing in both lungs. 4. Marked cardiac enlargement. 5. Marked enlargement of the main pulmonary artery and right and left main pulmonary arteries. 6. Apparent fluid and debris in the midesophagus. If there is concern for esophageal pathology, eso phagram may be considered. 7. Other chronic changes as described above. Report Dictated By: Patsy Lanier MD at 03/09/2018 3:46 PM Report E-Signed By: Patsy Lanier MD at 03/09/2018 3:57 PM WSN:[email or web address]
[2018-03-09] MEDS ORDERED: ALBUTEROL/IPRATROPIUM 3 ML NEB NEB ONE (18:15)
--- NOTE | 2018-03-09 19:05 | RADIOLOGY IMAGING REPORT ---
FACILITY: [facility] [place] PATIENT NAME: Adelina Ballesteros : 1935 MR: [id number] V: [id number] EXAM DATE: ORDERING PHYSICIAN: TIMO HICKEY TECHNOLOGIST: Location: [facility] [place] Patient: Adelina Ballesteros : 1935 Visit/Account:[id number] Date of Sevice: 03/09/2018 EXAMINATION: Portable chest radiograph single view at 1814 hours HISTORY: Increased oxygen requirement. COMPARISON: Chest radiograph from 03/09/2018 at 1059 hours, and CT chest from 03/09/2018. FINDINGS: A single portable AP view of the chest is obtained. Lines/tubes: There is a left-sided dual-lead pacemaker with intact and unchanged leads. Lungs/pleura: Moderate left pleural effusion and and small right pleural effusion with bibasilar con solidation, left greater than right, slightly worse. Coarse reticular opacities peripherally are unch anged. Heart: Mild cardiac silhouette enlargement. Prosthetic valve is unchanged. Mediastinum: Aorta is mildly tortuous and calcified. Bony structures/body wall: Midline sternotomy wires are aligned and intact. IMPRESSION: 1. Moderate left and small right pleural effusion with bibasilar consolidation, left greater than rig ht, slightly worse. Findings are concerning for worsening pneumonia. 2. Chronic interstitial lung disease, unchanged. 3. Mild cardiac silhouette enlargement, unchanged. Report Dictated By: Arlen Orellana MD at 03/09/2018 6:58 PM Report E-Signed By: Arlen Orellana MD at 03/09/2018 7:01 PM WSN:[id number]
--- NOTE | 2018-03-09 19:39 | Miscellaneous Provider Note ---
Miscellaneous Provider Note Note Adelina had a second desaturation episode occurring with her evening meal. Her oxygen requirement increased dramatically - unable to keep at 90% even with 15L NRBM and additional O2 via nasal cannula. CXR shows further involvement of left lung. We were able to show some improvement with BiPAP 12/8 rate of 12 with FiO2 100%. She was then able to cough up/clear a large thick mucous plug with significant improvement in her O2 saturations and decreased O2 requirement. I had lengthy discussions with Adelina and her family regarding their wishes. At this point, they all would like to pursue aggressive interventions if necessary up to and including intubation/mechanical ventilation and resuscitation. They would, however, like to have some time to discuss this amongst all of the family and possibly modify their decisions. They do understand the fact she is aspirating is a bad sign and would probably be an ongoing problem which might require further evaluation/treatment. They also understand the C1 fracture/CHF/ anticoagulation therapy all complicate her management. TIMO HICKEY MD Mar 09, 2018 19:39
[2018-03-09] MEDS ORDERED: LORazepam 2 MG/ML VIAL IVP PRN (20:00)
[2018-03-09] MEDS ORDERED: MORPHINE 2 MG/ML SYR IVP PRN (20:00)
[2018-03-10] VITALS (59 sets, daily range): BP systolic 65–159; BP diastolic 32–75
[2018-03-10] MEDS: METOPROLOL TART 5 MG/5 ML VIAL IVP SCH ×4 (00:05→18:12)
[2018-03-10] MEDS: PIPERACILLIN/TAZO*3.375GM VIAL 3.375 GM in NS(*) 0.9% 100 ML ADDVANT BAG 100 ML IVPB SCH ×4 (03:12→20:00)
[2018-03-10 05:44] LABS: PLATELET COUNT, AUTOMATED 334 K/uL (150-450)
[2018-03-10 05:55] LABS: INR 2.96
[2018-03-10] MEDS: SALMETEROL/FLUTIC 100/50 1 INH INH SCH ×2 (05:55→18:00)
--- NOTE | 2018-03-10 07:13 | RADIOLOGY IMAGING REPORT ---
FACILITY: [facility] [place] PATIENT NAME: Adelina Ballesteros : 1935 MR: [id number] V: [id number] EXAM DATE: ORDERING PHYSICIAN: TIMO HICKEY TECHNOLOGIST: Location: [facility] Patient: Adelina Ballesteros : 1935 Visit/Account:[id number] Date of Sevice: 03/10/2018 CHEST SINGLE AP HISTORY: Aspiration. Pleural effusion. COMPARISON: 03/09/2018 FINDINGS: Cardiomediastinal contours: Enlarged but unchanged. Valve replacement with median sternotomy. Left parisi bclavian biventricular pacemaker leads. Lungs and pleura: Extensive left pleural-parenchymal opacities have mildly improved. Predominantly in terstitial opacities within the right lung with more focal right perihilar airspace disease is little changed. Stable mild blunting of the right costophrenic angle. Left upper lobe granuloma. Bones/soft tissues: Severe arthropathy at the left shoulder with loose bodies. Other findings: None significant IMPRESSION: 1. Extensive left pleural-parenchymal opacities have mildly decreased. 2. Stable right lung pulmonary opacities with small right pleural effusion. 3. Stable increased interstitial markings Report Dictated By: Edis Cronin MD at 03/10/2018 7:01 AM Report E-Signed By: Edis Cronin MD at 03/10/2018 7:09 AM WSN:[id number]
[2018-03-10] MEDS ORDERED: KCL (*) 20 MEQ/100 ML PREMIX 100 ML IV SCH (07:40)
[2018-03-10] MEDS: TOBRAMYCIN 0.3% OP SOLN 5 ML OD SCH ×5 (08:01→20:00)
--- NOTE | 2018-03-10 08:37 | Hospitalist Progress Note ---
Subjective Progress Notes Subjective This patient was admitted for heart failure. She had an aspiration event yesterday, but is back to baseline today. Patient Complains of: Cardiovascular: No: Chest Pain Respiratory: Cough, No: Shortness of Breath Physical Exam Vital Signs Date Time Temp Pulse Resp B/P (MAP) Pulse Ox O2 Delivery O2 Flow Rate FiO2 03/10/18 07:30 98.6 71 17 139/59 (85) 93 High-Flow Nasal Cannula 4.0 03/10/18 07:30 100.0 Cardiovascular: Regular Rate and Rhythm Respiratory: Other (Bilateral rhonchi present.) Result Diagram: 03/10/1851703/10/18517 Assessment and Plan Problems: (1) Aspiration pneumonia Assessment & Plan: She did suffer an aspiration event on 03/10. Her chest x- ray has shown a right lower lobe infiltrate. She is on empiric treatment with Zosyn. She is scheduled for a swallow evaluation today. (2) Rib fracture Status: Acute Assessment & Plan: She had a fall on 03/06. Her X-ray showed a fracture of the left 10th rib. (3) Acute diastolic heart failure Status: Resolved Assessment & Plan: She did present with increased shortness of breath and her chest x-ray showed worsening bilateral pleural effusions. An echocardiogram did show a preserved ejection fraction at 55-60%. Daily weights are slightly increased today. She was on scheduled Lasix, but this was discontinued once she was made NPO. (4) Hyponatremia Status: Chronic Assessment & Plan: She has had recurrent problems with hyponatremia, but her levels were lower now than they have been. She was improving with sodium tablets, but these have been placed on hold secondary to her aspiration. (5) Urine retention Status: Acute Assessment & Plan: She did have a post void residual of 450cc. She now has a Vides catheter in place. (6) Fracture of C1 vertebra, closed Status: Chronic Assessment & Plan: She did recently suffer a C1 fracture and remains in a collar. She is being followed by Dr. Navas as an outpatient. (7) Atrial fibrillation Status: Chronic Assessment & Plan: She is on chronic treatment with metoprolol and warfarin. She has pacemaker in place. Her warfarin is currently on hold secondary to aspiration. Her INR is in therapeutic range. (8) Essential hypertension Status: Chronic Assessment & Plan: She is on chronic treatment with metoprolol. (9) Hypomagnesemia Status: Acute Assessment & Plan: Improved with supplementation. (10) Raynaud disease Status: Chronic Assessment & Plan: She has rather significant findings in her right hand/ fingers. She does continue to smoke. She is on aspirin and warfarin. Central Venous Access Medical Necessity for Access: Hemodynamic Monitoring, IV Access, Medication Administration Exam Sepsis Risk: No Definite Risk Problem Qualifiers (1) Rib fracture: Laterality: left LUKAS ROSE DO Mar 10, 2018 08:36
[2018-03-10] MEDS ORDERED: fentaNYL CITR 100 MCG/2 ML AMP ONE (10:38)
[2018-03-10] MEDS ORDERED: ePHEDrine 25 MG/5 ML DISP.SYR IVP ONE (10:39)
[2018-03-10] MEDS ORDERED: PROPOFOL EMUL(*) 10MG/ML 20 ML 20 ML ONE (10:40)
--- NOTE | 2018-03-10 11:42 | Hospitalist Progress Note ---
Subjective Progress Notes Subjective This patient was moved to the ICU after a recurrent aspiration event. Patient Complains of: Respiratory: Cough, Shortness of Breath Physical Exam Vital Signs Date Time Temp Pulse Resp B/P (MAP) Pulse Ox O2 Delivery O2 Flow Rate FiO2 03/10/18 10:25 90 High-Flow Nasal Cannula 15.0 03/10/18 07:30 98.6 71 17 139/59 (85) 03/10/18 05:56 50.0 Intake and Output 03/11/18 06:59 Intake Total 155 ml Balance 155 ml Intake Oral 50 ml IV Total 105 ml Neuro: Other (Sedated) Eyes: PERRLA Cardiovascular: Normal Rhythm & Peripheral Pulses, No Edema, No JVD Respiratory: Other (Bilateral breath sounds present.) GI: Soft and Non-Tender Extremities: No Edema Integumentary: No Cyanosis Result Diagram: 03/10/1851703/10/18517 Assessment and Plan Problems: (1) Acute respiratory failure with hypoxemia Assessment & Plan: She did have a recurrent aspiration event earlier this morning. She decided that she would want to proceed with intubation and mechanical ventilation. She was successfully intubated by anesthesia and we were able to accomplish this without removing her c-collar. She is now sedated on propofol and is tolerating the ventilator well. Post intubation chest x-ray and ABG are pending. (2) Aspiration pneumonia Assessment & Plan: She did suffer an aspiration event on 03/10. Her chest x- ray has shown a right lower lobe infiltrate. She is on empiric treatment with Zosyn. She is scheduled for a swallow evaluation today. (3) Rib fracture Status: Acute Assessment & Plan: She had a fall on 03/06. Her X-ray showed a fracture of the left 10th rib. (4) Acute diastolic heart failure Status: Resolved Assessment & Plan: She did present with increased shortness of breath and her chest x-ray showed worsening bilateral pleural effusions. An echocardiogram did show a preserved ejection fraction at 55-60%. Daily weights are slightly increased today. She was on scheduled Lasix, but this was discontinued once she was made NPO. (5) Hyponatremia Status: Chronic Assessment & Plan: She has had recurrent problems with hyponatremia, but her levels were lower now than they have been. She was improving with sodium tablets, but these have been placed on hold secondary to her aspiration. (6) Urine retention Status: Acute Assessment & Plan: She did have a post void residual of 450cc. She now has a Vides catheter in place. (7) Fracture of C1 vertebra, closed Status: Chronic Assessment & Plan: She did recently suffer a C1 fracture and remains in a collar. She is being followed by Dr. Navas as an outpatient. (8) Atrial fibrillation Status: Chronic Assessment & Plan: She is on chronic treatment with metoprolol and warfarin. She has pacemaker in place. Her warfarin is currently on hold secondary to aspiration. Her INR is in therapeutic range. (9) Essential hypertension Status: Chronic Assessment & Plan: She is on chronic treatment with metoprolol. (10) Hypomagnesemia Status: Acute Assessment & Plan: Improved with supplementation. (11) Raynaud disease Status: Chronic Assessment & Plan: She has rather significant findings in her right hand/ fingers. She does continue to smoke. She is on aspirin and warfarin. Central Venous Access Medical Necessity for Access: Hemodynamic Monitoring, IV Access, Medication Administration Exam Sepsis Risk: No Definite Risk Problem Qualifiers (1) Rib fracture: Laterality: left LUKAS ROSE DO Mar 10, 2018 11:42
[2018-03-10] MEDS ORDERED: KCL (*) 20 MEQ/100 ML PREMIX 100 ML IV ONE (12:00)
--- NOTE | 2018-03-10 12:23 | RADIOLOGY IMAGING REPORT ---
FACILITY: [facility] [place] PATIENT NAME: Adelina Ballesteros : 1935 MR: [id number] V: [id number] EXAM DATE: ORDERING PHYSICIAN: HIMANSHU HERNANDEZ TECHNOLOGIST: [place] [facility] [place] Patient: Adelina Ballesteros : 1935 Visit/Account:[id number] Date of Sevice: 03/10/2018 EXAMINATION: Portable AP Chest 03/10/2018 11:10 AM HISTORY: POST INTUBATION COMPARISON: 6:46 AM today FINDINGS: Cardiomediastinal contours: New endotracheal tube tip about 4 cm above the lizbet. Heart size is unc hanged. Aorta is atherosclerotic. Lungs and pleura: Bilateral effusions, probably mildly increased on the right. Airspace densities in both lungs, also probably mildly breast in the bases at least on the right. No pneumothorax. Bones/soft tissues: Osteopenia. Degenerative changes. Calcific density over the lateral left shahnaz l head is not evident on priors from 2017 but still probably reflects large loose bodies given the se yvette osteoarthritic glenohumeral changes. Nasogastric tube extends below this film with the side port projecting over the lower aspect of the s tomach. IMPRESSION: 1. Satisfactory position of nasogastric and endotracheal tubes. 2. Increasing effusions and pulmonary densities which are probably edema. Infiltrate cannot be excl uded. 3. See above regarding density over the lateral left humeral head. Report Dictated By: Srinivas Keating MD at 03/10/2018 12:14 PM Report E-Signed By: Srinivas Keating MD at 03/10/2018 12:19 PM WSN:[email or web address]
[2018-03-10] MEDS: LORazepam 2 MG/ML VIAL IVP PRN (12:27)
[2018-03-10] MEDS ORDERED: NOREPINE BITAR* 4 MG/4 ML AMP 4 MG in D5W(*) 250 ML BAG 246 ML IV PRN (12:30)
[2018-03-10] MEDS ORDERED: MORPHINE 4 MG/ML SDV ONE (12:35)
[2018-03-10] MEDS: HYDROCORTISONE 100 MG/2 ML IVP SCH ×2 (12:52→20:00)
[2018-03-10] MEDS: MORPHINE 2 MG/ML SYR IVP PRN ×2 (13:43→16:42)
[2018-03-10 15:34] LABS: INR 1.99
[2018-03-10] MEDS ORDERED: WATER STERILE ONE (16:41)
[2018-03-10] MEDS: PROPOFOL(*)1000 MG/100 ML VIAL 100 ML IV PRN (16:43)
--- NOTE | 2018-03-10 16:46 | Medical Nutrition Therapy ---
Nutrition Anthropometrics Height (Inches): 65.00 Height (Calculated Centimeters: 165.921560 Weight (Pounds): 108 Weight (Calculated Kilograms): 49.045 Js Nutrition Score: Probably Inadequate Js Nutrition Risk Score: 17 Dietary Referral Nutrition Risk Factors: Significantly Underwt. Nutrition Risk Comment: 3-4 illness lost weight Physical Findings Physical Appearance: Underweight BMI<19 Skin Appearance Skin Appearance: Edema Edema Location Modifier: Both Edema Location: Foot Type of Edema: Degree of Edema: 1+ Gastrointestinal Symptoms GI Symtoms: Tube Present: Bowel Sounds: Recent Bowel Pattern: Stool Characteristics: Nutritional Diagnosis Nutritional Risk Acuity 1: Pulm Fail Vent Nutritional Risk Acuity 2: Swallowing Problem, Ileostomy Nutritional Risk Acuity 3: Fx & > 80 yrs, %IBW 81-89% Past Medical History: low BMI, COPD, PVD, CAD s/p CABG, GERD, Ischemic Colitis s/p Ileostomy, current smoker, bioprosthetic mitral valve and atrial fibrillation, HTN, low BMI, Raynaud disease Nutritional Acuity: 1-High Nutrition Diagnosis: Swallowing Difficulties, Altered GI Function (ileostom) Nutrition Etiology: Physiological Causes Nutrition Problem/Etiology/Sym: Swallowing difficulites r/t aspiration pneumonia AEB ST recommendation of dysphagia 3 diet and pt demonstrated aspiration event post meal. Energy Requirement: 1370 ([place] X 1.25 SAF, X 1.1 wt gain) Protein Requirement: 50 (1gm/kg) Fluid Requirement: 1225 (25ml/kg) Diet Type: NPO (Nothing by Mouth) Nutrition Intervention: Incr diet as tolerated Additional Diet Restrictions: ALLERGIC: MUSTARD Nutrition Monitoring & Eval Nutrition Goals: Eat 75-100% Meal RD Patient Assessment Time: [address] Assessment Type: RD Assessment Patient Nutrition Acuity: 2-Moderate Follow Up Date: Mar 13, 2018 Nutritional Comment: 03/05 Pt admitted with low sodium and will be treated for hyponatremia, acute diastolic HF and pneumonia. She has hx of low sodium and had been on NA tablets but has discontinued tablets. She was recently inpatient for C1 fx on 02/10/18-02/14/18. She also had a hip fx in Jun 2017. Her wt is up 3# from Nov admit but still remains at 87% of IBW. Notable labs include low H/H, very low Na 120, chloride 88, tot pro 6.2 and alb 3.2. Currently on LAURA with intake of 50% of 2 meals. Will cont to monitor and encourage intake. -EK 03/10 Pt has dx aspriation pneu. Pt given baruim swallow and SPL recommended dyspagia 3 diet with thin liquid. Pt has aspiration event last night. Pt was then changed to NPO. Pt is now on mech vent. Wt cont stable. Pt has fall 03/06 with resulting rib fx. H/H low, alb declined to 2.7, K+ low at 3.3, Na low at 126. Pt is recieving K+ supplement. MARYELLEN EAST Mar 10, 2018 11:21
--- NOTE | 2018-03-10 18:28 | Procedure Note ---
Central Line Procedure Note Consent Signed: Yes Central Line Lumen: Triple Central Line Procedure: Chlorhexidine Prep Anesthesia Used: 1% Lidocaine Complications: None Central Line Post Position: Sutured, Confirmed Blood Return SULY BHAKTA MD Mar 10, 2018 18:28
[2018-03-10] MEDS: ORAL SUCTION/CHLORHX/SWAB KIT MT SCH (20:56)
[2018-03-10] MEDS: NYSTATIN 5 ML UDCUP PO SCH (20:56)
[2018-03-11] VITALS (87 sets, daily range): BP systolic 101–153; BP diastolic 45–78
[2018-03-11] MEDS: PROPOFOL(*)1000 MG/100 ML VIAL 100 ML IV PRN ×3 (00:15→20:17)
[2018-03-11] MEDS: METOPROLOL TART 5 MG/5 ML VIAL IVP SCH ×5 (00:16→23:52)
[2018-03-11] MEDS: PIPERACILLIN/TAZO*3.375GM VIAL 3.375 GM in NS(*) 0.9% 100 ML ADDVANT BAG 100 ML IVPB SCH ×4 (02:54→20:18)
[2018-03-11] MEDS: HYDROCORTISONE 100 MG/2 ML IVP SCH ×3 (04:33→20:20)
[2018-03-11] MEDS: MORPHINE 2 MG/ML SYR IVP PRN (04:38)
[2018-03-11] MEDS ORDERED: FUROSEMIDE 40 MG/4 ML VIAL IVP ONE (04:50)
[2018-03-11 05:48] LABS: PLATELET COUNT, AUTOMATED 326 K/uL (150-450)
[2018-03-11] MEDS: SALMETEROL/FLUTIC 100/50 1 INH INH SCH ×2 (06:00→18:00)
[2018-03-11 06:03] LABS: INR 2.03
--- NOTE | 2018-03-11 07:29 | RADIOLOGY IMAGING REPORT ---
FACILITY: [facility] PATIENT NAME: Adelina Ballesteros : 1935 MR: [id number] V: [id number] EXAM DATE: ORDERING PHYSICIAN: LUKAS ROSE TECHNOLOGIST: Location: [facility] - [place] Patient: Adelina Ballesteros : 1935 Visit/Account:[id number] Date of Sevice: 03/11/2018 Single view of the chest Indication: PNA. Comparison: Examination chest 03/10/2018 Findings: Cardiac silhouette is unchanged. Stable appearance of postoperative changes from a sternotomy, cardia c valve replacement and a single lead left pacer defibrillator. Improved aeration mildly within the perihilar region with persistent interstitial and vague alveolar opacities within the bases. Small bilateral pleural effusions left greater than right. Concomitant bi basilar airspace consolidation. The endotracheal tube is stable. Tip of the NG catheter is at least to the region the gastric body, n ot seen on this imaging. IMPRESSION: 1. Compared to prior examination from yesterday, improved aeration in the perihilar region with findi ngs indicative of mildly improved pulmonary edema. 2. There is residual interstitial edematous changes with small bilateral pleural effusions, left grea ter than right. Concomitant bibasilar airspace consolidation. Report Dictated By: Jose Paulino MD at 03/11/2018 7:22 AM Report E-Signed By: Jose Paulino MD at 03/11/2018 7:25 AM [id number]
--- NOTE | 2018-03-11 08:34 | Hospitalist Progress Note ---
Subjective Progress Notes Subjective Intubated/sedated on ventilator. No fever. Large amount of sputum suctioned since intubation. O2 requirement down. Physical Exam Vital Signs Date Time Temp Pulse Resp B/P (MAP) Pulse Ox O2 Delivery O2 Flow Rate FiO2 03/11/18 07:00 65 13 126/53 (77) 96 Mechanical Ventilator 35.0 03/11/18 04:45 98.3 03/10/18 10:25 15.0 General Appearance: Other (sedated) ENT: Other (OG/ET tubes in place) Cardiovascular: Regular Rate and Rhythm Respiratory: Other (bronchial breath sounds at left base) Chest: Other (pacer left upper chest) GI: Other (soft/BS hypoactive) Extremities: Warm, Perfused, Other (SHANA hose on) Integumentary: Generalized Fragile Skin Result Diagram: 03/11/18 0534 03/11/18 0534 Item Value Date Time Albumin 2.7 g/dl L 03/11/18 0534 Total Protein 5.4 g/dl L 03/11/18 0534 Alkaline Phosphatase 68 U/L 03/11/18 0534 Alanine Aminotransferase (ALT/SGPT) 23 U/L 03/11/18 0534 Aspartate Amino Transf (AST/SGOT) 22 U/L 03/11/18 0534 Total Bilirubin 0.6 mg/dl 03/11/18 0534 Calcium Level 8.2 mg/dl L 03/11/18 0534 Oxygen Liters/Minute 35% 03/11/18 0534 Hosea Test Nt avail 03/11/18 0534 Arterial Blood Base Excess 2.0 mmol/L 03/11/18 0534 Arterial Blood Oxygen Saturation 97 % 03/11/18 0534 Arterial Blood HCO3 24 mmol/L 03/11/18 0534 Arterial Blood Partial Pressure O2 80 mmHg 03/11/18 0534 Arterial Blood Partial Pressure CO2 27 mmHg L 03/11/18 0534 Arterial Blood pH 7.56 H 03/11/18 0534 Blood Gas Patient Temperature 98.3 DEGREES 03/11/18 0534 Blood Gas Puncture Site Left radial 03/11/18 0534 Prothromb Time International Ratio 2.03 03/11/18 0534 Prothrombin Time 23.3 seconds H 03/11/18 0534 Imaging PATIENT NAME: Adelina Ballesteros : 1935 MR: [id number] V: [id number] EXAM DATE: [id number] ORDERING PHYSICIAN: LUKAS ROSE TECHNOLOGIST: Location: [facility] - [place] Patient: Adelina Ballesteros : 1935 Visit/Account:[id number] Date of Sevice: 03/11/2018 Single view of the chest Indication: PNA. Comparison: Examination chest 03/10/2018 Findings: Cardiac silhouette is unchanged. Stable appearance of postoperative changes from a sternotomy, cardiac valve replacement and a single lead left pacer defibrillator. Improved aeration mildly within the perihilar region with persistent interstitial and vague alveolar opacities within the bases. Small bilateral pleural effusions left greater than right. Concomitant bibasilar airspace consolidation. The endotracheal tube is stable. Tip of the NG catheter is at least to the region the gastric body, not seen on this imaging. IMPRESSION: 1. Compared to prior examination from yesterday, improved aeration in the perihilar region with findings indicative of mildly improved pulmonary edema. 2. There is residual interstitial edematous changes with small bilateral pleural effusions, left greater than right. Concomitant bibasilar airspace consolidation. Report Dictated By: Jose Paulino MD at 03/11/2018 7:22 AM Report E-Signed By: Jose Paulino MD at 03/11/2018 7:25 AM [id number] Assessment and Plan Problems: (1) Acute respiratory failure with hypoxemia Assessment & Plan: She did have a recurrent aspiration event yesterday. She decided that she would want to proceed with intubation and mechanical ventilation. She was successfully intubated by anesthesia and we were able to accomplish this without removing her cervical-collar. She is now sedated on propofol and is tolerating the ventilator well. Her CXR shows improved aeration of left base and her O2 requirement is significantly better. Will adjust vent settings as she is slightly alkalotic. (2) Aspiration pneumonia Assessment & Plan: She has now had several aspiration events. Her chest x-ray has shown a left lower lobe infiltrate and lesser right lower lobe involvement. She is on empiric treatment with IV Zosyn. At this point, the patient and her family would like to continue aggressive management. They do understand she may have an underlying cause for her aspiration such as a possible stroke. Unfortunately, we cannot do an MRI due to pacemaker. (3) Rib fracture Status: Acute Assessment & Plan: She had a fall on 03/06. Her X-ray showed a fracture of the left 10th rib. (4) Acute diastolic heart failure Status: Resolved Assessment & Plan: She did present with increased shortness of breath and her chest x-ray showed worsening bilateral pleural effusions. An echocardiogram did show a preserved ejection fraction at 55-60%. Will watch closely and diuresis as needed (and as tolerated). (5) Hyponatremia Status: Chronic Assessment & Plan: She has had recurrent problems with hyponatremia, but her levels were lower now than they have been. She was improving with sodium tablets, but these have been placed on hold secondary to her aspiration. (6) Urine retention Status: Acute Assessment & Plan: She did have a post void residual of 450cc. She now has a Vides catheter in place. (7) Fracture of C1 vertebra, closed Status: Chronic Assessment & Plan: She did recently suffer a C1 fracture and remains in a collar. This may also be complicating her ability to swallow effectively. She is being followed by Dr. Navas as an outpatient. (8) Atrial fibrillation Status: Chronic Assessment & Plan: She is on chronic treatment with metoprolol and warfarin. She has pacemaker in place. Her warfarin is currently on hold secondary to aspiration. Her INR is in therapeutic range. Will initiate Lovenox when INR drops below 2.0. (9) Essential hypertension Status: Chronic Assessment & Plan: She is on chronic treatment with metoprolol. (10) Hypomagnesemia Status: Acute Assessment & Plan: Improved with supplementation. (11) Raynaud disease Status: Chronic Assessment & Plan: She has rather significant findings in her right hand/ fingers. She does continue to smoke. She has been on aspirin and warfarin. Central Venous Access Medical Necessity for Access: Hemodynamic Monitoring, IV Access, Medication Administration Exam Sepsis Risk: No Definite Risk Problem Qualifiers (1) Rib fracture: Laterality: left TIMO HICKEY MD Mar 11, 2018 08:34
[2018-03-11] MEDS: ORAL SUCTION/CHLORHX/SWAB KIT MT SCH ×2 (09:00→20:22)
[2018-03-11] MEDS: PANTOPRAZOLE SOD 40 MG IV VIAL IVP SCH ×2 (09:26→20:18)
[2018-03-11] MEDS: NYSTATIN 5 ML UDCUP PO SCH ×4 (10:19→20:17)
--- NOTE | 2018-03-11 10:58 | Medical Nutrition Therapy ---
Nutrition Anthropometrics Height (Inches): 65.00 Height (Calculated Centimeters: 165.773123 Weight (Pounds): 99 Weight (Calculated Kilograms): 45.076 Js Nutrition Score: Probably Inadequate Js Nutrition Risk Score: 17 Dietary Referral Nutrition Risk Factors: Significantly Underwt. Nutrition Risk Comment: 3-4 illness lost weight Physical Findings Physical Appearance: Underweight BMI<19 Skin Appearance Skin Appearance: Edema Edema Location Modifier: Both Edema Location: Foot Type of Edema: Degree of Edema: 1+ Gastrointestinal Symptoms GI Symtoms: Tube Present: OG Bowel Sounds: Recent Bowel Pattern: Stool Characteristics: Nutritional Diagnosis Nutritional Risk Acuity 1: Pulm Fail Vent Nutritional Risk Acuity 2: Swallowing Problem, Ileostomy Nutritional Risk Acuity 3: Fx & > 80 yrs, %IBW 81-89% Past Medical History: low BMI, COPD, PVD, CAD s/p CABG, GERD, Ischemic Colitis s/p Ileostomy, current smoker, bioprosthetic mitral valve and atrial fibrillation, HTN, low BMI, Raynaud disease Nutritional Acuity: 1-High Nutrition Diagnosis: Swallowing Difficulties, Altered GI Function (ileostom) Nutrition Etiology: Physiological Causes Nutrition Problem/Etiology/Sym: Swallowing difficulites r/t aspiration pneumonia AEB ST recommendation of dysphagia 3 diet and pt demonstrated aspiration event post meal. Energy Requirement: 1726 ([place] x 1.25 AF x 1.2 SF = 1476 + 250 kcal to promote wt. gain for low BMI of 16.5.) Protein Requirement: 67.5 (1.5 g/kg x body wt. 45kg) Fluid Requirement: 1225 (25ml/kg) Diet Type: NPO (Nothing by Mouth) Nutrition Intervention: Incr diet as tolerated Additional Diet Restrictions: ALLERGIC: MUSTARD Nutritional Support Current Enteral / Parental: Tube Feeding Tube Feeding Formulas: Jevity 1cal/ml-Standard Current Tube Feeding Formula C: Start 30 cc/hr w/ final rate of 70 cc/hr x 24 hours Tube Feeding Supplement Streng: Full Feeding Route: FT Placed Oralgastric Rate: 70 cc/hr Current Duration: 24 Current Calories: 1780 Current Protein: 74 Total Current Calories: 1780 Recommended Enteral / Parental: Tube Feeding Recommended Tube Feeding Formu: Specialty Formula (Promote) Tube Feeding Supplement Streng: Full Recommended Feeding Route: FT Placed Oralgastric Recommended Rate: 55 mL/hr Recommended Goal Rate: 55 mL/hr Recommended Duration: 24 Recommended Calories: 1320 Recommended Protein: 83 Total Recommended Calories: 1320 Nutrition Monitoring & Eval RD Patient Assessment Time: [address] Assessment Type: RD Re-Assessment Patient Nutrition Acuity: 1-High Follow Up Date: Mar 13, 2018 Nutritional Comment: 03/05 Pt admitted with low sodium and will be treated for hyponatremia, acute diastolic HF and pneumonia. She has hx of low sodium and had been on NA tablets but has discontinued tablets. She was recently inpatient for C1 fx on 02/10/18-02/14/18. She also had a hip fx in Jun 2017. Her wt is up 3# from Jun admit but still remains at 87% of IBW. Notable labs include low H/H, very low Na 120, chloride 88, tot pro 6.2 and alb 3.2. Currently on LAURA with intake of 50% of 2 meals. Will cont to monitor and encourage intake. -EK 03/10 Pt has dx aspriation pneu. Pt given baruim swallow and SPL recommended dyspagia 3 diet with thin liquid. Pt has aspiration event last night. Pt was then changed to NPO. Pt is now on mech vent. Wt cont stable. Pt has fall7/8 with resulting rib fx. H/H low, alb declined to 2.7, K+ low at 3.3, Na low at 126. Pt is recieving K+ supplement. BK 03/11 Pt. now on Jevity 1 tube feed starting at 30cc/hr with final rate of 70 cc/hr. This will provide 1780 kcal and 74g protein. Also on Propofol at rate of 14.7 mL/hr providing an additional 388 kcal. Currently getting 110% protein needs and 122% of kcal needs. Concerned she is being overfed. Recommend changing formula to Promote 1 at 55mL/hr. This would provide 1320 kcal and 82.5g protein + 388kcal from Propofol for 1708 kcal total. This meets 96% kcal and 122% protein needs. Pt. lost 6.6 lbs in 7 days, weight loss of 6%. BMI is now only 16.5 so kcal and protein needs adjusted for vent. and wt. loss. Alb. still 2.7, trending down. Hgb and Hct also low. Will continue to monitor feed, labs and wt. - BECKA VALDES Mar 11, 2018 10:35
[2018-03-11] MEDS: NS(*) 0.9% 1000 ML BAG 1,000 ML IV PRN (12:14)
[2018-03-11] MEDS: TOBRAMYCIN 0.3% OP SOLN 5 ML OD SCH ×5 (12:18→23:52)
[2018-03-12] VITALS (72 sets, daily range): BP systolic 134–180; BP diastolic 51–78
[2018-03-12] MEDS: PIPERACILLIN/TAZO*3.375GM VIAL 3.375 GM in NS(*) 0.9% 100 ML ADDVANT BAG 100 ML IVPB SCH ×4 (02:27→20:56)
[2018-03-12] MEDS: PROPOFOL(*)1000 MG/100 ML VIAL 100 ML IV PRN ×2 (03:27→08:34)
[2018-03-12] MEDS: HYDROCORTISONE 100 MG/2 ML IVP SCH ×3 (03:28→19:52)
[2018-03-12] MEDS: METOPROLOL TART 5 MG/5 ML VIAL IVP SCH ×3 (05:32→17:42)
[2018-03-12 05:37] LABS: PLATELET COUNT, AUTOMATED 354 K/uL (150-450)
[2018-03-12 05:40] LABS: INR 2.74
[2018-03-12] MEDS: SALMETEROL/FLUTIC 100/50 1 INH INH SCH ×2 (06:00→18:00)
--- NOTE | 2018-03-12 07:06 | RADIOLOGY IMAGING REPORT ---
FACILITY: [facility] PATIENT NAME: Adelina Ballesteros : 1935 MR: [id number] V: [id number] EXAM DATE: ORDERING PHYSICIAN: TIMO HICKEY TECHNOLOGIST: Location: [facility] Patient: Adelina Ballesteros : 1935 Visit/Account:[id number] Date of Sevice: 03/12/2018 INDICATION: intubated/pneumonia. DATE: 03/12/2018 7:00 AM. TECHNIQUE: CHEST SINGLE AP COMPARISON: Chest radiograph March 11, 2018 FINDINGS: The endotracheal tube is above the lizbet. The esophagogastric tube tip is off the image ed ge. Aeration has improved at the left base with some persistent pleural thickening/pleural fluid. The re continues to be a small right pleural effusion, unchanged. The interstitium is coarsened diffusely . EKG wires partially obscure the chest. A left chest ICD is noted. There are large intra-articular l oose bodies of the left shoulder. IMPRESSION: Somewhat improved aeration at the left base. Otherwise unchanged. Report Dictated By: Erendira Linder MD at 03/12/2018 7:00 AM Report E-Signed By: Erendira Linder MD at 03/12/2018 7:02 AM [id number]
[2018-03-12] MEDS ORDERED: KCL (*) 20 MEQ/100 ML PREMIX 100 ML IV ONE (08:10)
[2018-03-12] MEDS: PANTOPRAZOLE SOD 40 MG IV VIAL IVP SCH ×2 (08:34→21:02)
[2018-03-12] MEDS: ORAL SUCTION/CHLORHX/SWAB KIT MT SCH ×2 (08:34→20:59)
[2018-03-12] MEDS: NYSTATIN 5 ML UDCUP PO SCH ×4 (08:35→21:02)
[2018-03-12] MEDS: TOBRAMYCIN 0.3% OP SOLN 5 ML OD SCH ×4 (08:35→19:39)
--- NOTE | 2018-03-12 09:44 | Hospitalist Progress Note ---
Subjective Progress Notes Subjective The patient remains intubated and sedated. No new issues overnight. Physical Exam Vital Signs Date Time Temp Pulse Resp B/P (MAP) Pulse Ox O2 Delivery O2 Flow Rate FiO2 03/12/18 08:03 65 12 03/12/18 08:03 35.0 03/12/18 06:43 95 Mechanical Ventilator 03/12/18 06:15 146/64 (91) 03/12/18 05:30 98.3 03/10/18 10:25 15.0 Intake and Output 03/13/18 07:00 Output Total 60 ml Balance -60 ml Output Urine Total 60 ml General Appearance: Other (Sedated but moving feet during evaluation. NG tube and OT tube in place.) Neuro: Other (Unable to assess.) Eyes: PERRLA Cardiovascular: Other (Irregularly irregular.) Respiratory: Other (Some coarse breath sounds with out obvious rales or rhonchi anteriorly.) GI: Other (Soft, BS+) Extremities: Warm, Perfused, Other (Henry hose in place.) Integumentary: Generalized Fragile Skin Psych: Other (Sedated.) Result Diagram: 03/12/18 0508 03/12/18 0508 Item Value Date Time Absolute Reticulocyte Count 0.0543 10^6/uL 03/12/18 0508 Percent Reticulocyte Count 1.75 % 03/12/18 0508 Corrected Reticulocyte % 1.13 % 03/12/18 0508 Hematocrit 27.1 % L 03/12/18 0508 Urine Osmolality 469 mosm/K L 03/04/18 1931 Prothromb Time International Ratio 2.74 03/12/18 0508 Blood Gas Puncture Site Left radial 03/12/18 0520 Blood Gas Patient Temperature 98.3 DEGREES 03/12/18 0520 Arterial Blood pH 7.49 H 03/12/18 0520 Arterial Blood Partial Pressure CO2 36 mmHg 03/12/18 0520 Arterial Blood Partial Pressure O2 79 mmHg 03/12/18 0520 Arterial Blood HCO3 28 mmol/L H 03/12/18 0520 Arterial Blood Oxygen Saturation 97 % 03/12/18 0520 Arterial Blood Base Excess 4.0 mmol/L 03/12/18 0520 Hosea Test Nt avail 03/12/18 0520 Oxygen Liters/Minute 35% 03/12/18 0520 Imaging FACILITY: PATIENT NAME: Adelina Ballesteros : 1935 MR: [id number] V: [id number] EXAM DATE: ORDERING PHYSICIAN: TIMO HICKEY TECHNOLOGIST: Location: [facility] [place] Patient: Adelina Ballesteros : 1935 Visit/Account:[id number] Date of Sevice: 03/12/2018 INDICATION: intubated/pneumonia. DATE: 03/12/2018 7:00 AM. TECHNIQUE: CHEST SINGLE AP COMPARISON: Chest radiograph March 11, 2018 FINDINGS: The endotracheal tube is above the lizbet. The esophagogastric tube tip is off the image edge. Aeration has improved at the left base with some persistent pleural thickening/pleural fluid. There continues to be a small right pleural effusion, unchanged. The interstitium is coarsened diffusely. EKG wires partially obscure the chest. A left chest ICD is noted. There are large intra-articular loose bodies of the left shoulder. IMPRESSION: Somewhat improved aeration at the left base. Otherwise unchanged. Report Dictated By: Erendira Linder MD at 03/12/2018 7:00 AM Report E-Signed By: Erendira Linder MD at 03/12/2018 7:02 AM [id number] Monitor Interpretation: Atrial Fibrillation Assessment and Plan Problems: (1) Acute respiratory failure with hypoxemia Assessment & Plan: The patient had a recurrent aspiration event 03/10/18. She decompensated. She decided that she would want to proceed with intubation and mechanical ventilation. She was successfully intubated by anesthesia without removing her cervical-collar. She is now sedated on propofol and is tolerating the ventilator well. Her CXR shows improved aeration of left base and her O2 requirement is significantly better. She is currently on an FiO2 orf 35%. RT will follow the weaning protocol today. (2) Aspiration pneumonia Assessment & Plan: She has now had several aspiration events. Her chest x-ray has shown a left lower lobe infiltrate and lesser right lower lobe involvement. She is on empiric treatment with IV Zosyn. At this point, the patient and her family would like to continue aggressive management. They do understand she may have an underlying cause for her aspiration such as a possible stroke. Unfortunately, we cannot do an MRI due to pacemaker. (3) Rib fracture Status: Acute Assessment & Plan: She had a fall on 03/06. Her X-ray showed a fracture of the left 10th rib. (4) Acute diastolic heart failure Status: Resolved Assessment & Plan: She did present with increased shortness of breath and her chest x-ray showed worsening bilateral pleural effusions. An echocardiogram did show a preserved ejection fraction at 55-60%. Will watch closely and diuresis as needed (and as tolerated). (5) Hyponatremia Status: Chronic Assessment & Plan: She has had recurrent problems with hyponatremia, but her levels were lower now than they have been. She was improving with sodium tablets, but these have been placed on hold secondary to her aspiration. (6) Urine retention Status: Acute Assessment & Plan: She did have a post void residual of 450cc. She now has a Vides catheter in place. (7) Fracture of C1 vertebra, closed Status: Chronic Assessment & Plan: She did recently suffer a C1 fracture and remains in a collar. This may also be complicating her ability to swallow effectively. She is being followed by Dr. Navas as an outpatient. (8) Atrial fibrillation Status: Chronic Assessment & Plan: She is on chronic treatment with metoprolol and warfarin. She has pacemaker in place. Her warfarin is currently on hold secondary to aspiration. Her INR is in therapeutic range. Will initiate Lovenox when INR drops below 2.0. (9) Essential hypertension Status: Chronic Assessment & Plan: She is on chronic treatment with metoprolol. Currently this is ordered IV. (10) Hypomagnesemia Status: Acute Assessment & Plan: Improved with supplementation. (11) Raynaud disease Status: Chronic Assessment & Plan: She has rather significant findings in her right hand/ fingers. She does continue to smoke. She has been on aspirin and warfarin. Central Venous Access Medical Necessity for Access: Hemodynamic Monitoring, IV Access, Medication Administration Time Spent on Plan of Care: < 30 min Exam Sepsis Risk: No Definite Risk Problem Qualifiers (1) Rib fracture: Laterality: left LY HICKEY MD Mar 12, 2018 09:44
--- NOTE | 2018-03-12 10:53 | Medical Nutrition Therapy ---
Nutrition Anthropometrics Height (Inches): 65.00 Height (Calculated Centimeters: 165.514511 Weight (Pounds): 105 Weight (Calculated Kilograms): 47.627 Js Nutrition Score: Adequate Js Nutrition Risk Score: 14 Dietary Referral Nutrition Risk Factors: Significantly Underwt. Nutrition Risk Comment: 3-4 illness lost weight Nutritional Diagnosis Nutritional Risk Acuity 1: Pulm Fail Vent Nutritional Risk Acuity 2: Swallowing Problem, Ileostomy Nutritional Risk Acuity 3: Fx & > 80 yrs, %IBW 81-89% Past Medical History: low BMI, COPD, PVD, CAD s/p CABG, GERD, Ischemic Colitis s/p Ileostomy, current smoker, bioprosthetic mitral valve and atrial fibrillation, HTN, low BMI, Raynaud disease Nutritional Acuity: 1-High Nutrition Diagnosis: Swallowing Difficulties, Altered GI Function (ileostom) Nutrition Etiology: Physiological Causes Nutrition Problem/Etiology/Sym: Swallowing difficulites r/t aspiration pneumonia AEB ST recommendation of dysphagia 3 diet and pt demonstrated aspiration event post meal. Energy Requirement: 1726 ([place] x 1.25 AF x 1.2 SF = 1476 + 250 kcal to promote wt. gain for low BMI of 16.5.) Protein Requirement: 67.5 (1.5 g/kg x body wt. 45kg) Fluid Requirement: 1175 (25ml/kg) Diet Type: NPO (Nothing by Mouth) Nutrition Intervention: Incr diet as tolerated Additional Diet Restrictions: ALLERGIC: MUSTARD Nutritional Support Current Enteral / Parental: Tube Feeding Tube Feeding Formulas: Jevity 1cal/ml-Standard, Specialty Formula (Promote) Current Tube Feeding Formula C: Start 30 cc/hr w/ final rate of 55 cc/hr x 24 hours Tube Feeding Supplement Streng: Full Feeding Route: FT Placed Oralgastric Rate: 55 cc/hr Current Duration: 24 Current Calories: 1320 Current Protein: 83 Current Lipids Calories: 380 (from propofol at 14.4 mls/hr) Total Current Calories: 1700 Recommended Enteral / Parental: Tube Feeding Nutrition Monitoring & Eval Nutritional Goals Comment: TF will meet nutr needs. RD Patient Assessment Time: [address] Assessment Type: RD Re-Assessment Patient Nutrition Acuity: 1-High Follow Up Date: Mar 14, 2018 Nutritional Comment: 03/05 Pt admitted with low sodium and will be treated for hyponatremia, acute diastolic HF and pneumonia. She has hx of low sodium and had been on NA tablets but has discontinued tablets. She was recently inpatient for C1 fx on 02/10/18-02/14/18. She also had a hip fx in Jun 2017. Her wt is up 3# from Nov admit but still remains at 87% of IBW. Notable labs include low H/H, very low Na 120, chloride 88, tot pro 6.2 and alb 3.2. Currently on LAURA with intake of 50% of 2 meals. Will cont to monitor and encourage intake. -EK 03/10 Pt has dx aspriation pneu. Pt given baruim swallow and SPL recommended dyspagia 3 diet with thin liquid. Pt has aspiration event last night. Pt was then changed to NPO. Pt is now on mech vent. Wt cont stable. Pt has fall03/06 with resulting rib fx. H/H low, alb declined to 2.7, K+ low at 3.3,Na low at 126. Pt is recieving K+ supplement. BK 03/11 Pt. now on Jevity 1 tube feed starting at 30cc/hr with final rate of 70 cc/hr. This will provide 1780 kcal and 74g protein. Also on Propofol at rate of 14.7 mL/hr providing an additional 388 kcal. Currently getting 110% protein needs and 122% of kcal needs. Concerned she is being overfed. Recommend changing formula to Promote 1 at 55mL/hr. This would provide 1320 kcal and 82.5g protein + 388kcal from Propofol for 1708 kcal total. This meets 96% kcal and 122% protein needs. Pt. lost 6.6 lbs in 7 days, weight loss of 6%. BMI is now only 16.5 so kcal and protein needs adjusted for vent. and wt. loss. 03/11 14:00 TF changed to Promote at final rate of 55 ml/hr Alb. still 2.7, trending down. Hgb and Hct also low. Will continue to monitor feed, labs and wt. - RB 03/12 Pt at final rate of 55ml/hr Promote tolerating it well with minimal residuals. With propofol at 14.4mls/hr, TF plus propofol is meeting 115% est kcal and 122% est protein. Goal is to provide additional kcal from TF to assist with wt gain. TF is meeting 94% est fluid needs however pt is on IV meds and cont 1+Edema Rt LE. Alb at 2.4 cont to trend down. BG elevated up to 193. Will cont to monitor. MARYELLEN EAST Mar 12, 2018 10:53
[2018-03-12] MEDS: NS(*) 0.9% 1000 ML BAG 1,000 ML IV PRN (11:36)
[2018-03-12] MEDS: MORPHINE 2 MG/ML SYR IVP PRN (19:39)
[2018-03-12] MEDS: HYPROMELLOSE 0.4% LUB 15ML BTL OU PRN (19:39)
[2018-03-13] VITALS (43 sets, daily range): BP systolic 141–181; BP diastolic 59–95
[2018-03-13] MEDS: METOPROLOL TART 5 MG/5 ML VIAL IVP SCH ×4 (00:26→17:58)
[2018-03-13] MEDS: TOBRAMYCIN 0.3% OP SOLN 5 ML OD SCH ×5 (00:26→20:55)
[2018-03-13] MEDS: PROPOFOL(*)1000 MG/100 ML VIAL 100 ML IV PRN (00:27)
[2018-03-13] MEDS: PIPERACILLIN/TAZO*3.375GM VIAL 3.375 GM in NS(*) 0.9% 100 ML ADDVANT BAG 100 ML IVPB SCH ×4 (02:39→20:56)
[2018-03-13] MEDS: HYDROCORTISONE 100 MG/2 ML IVP SCH ×2 (04:34→16:05)
[2018-03-13] MEDS: NS(*) 0.9% 1000 ML BAG 1,000 ML IV PRN (04:40)
[2018-03-13] MEDS: SALMETEROL/FLUTIC 100/50 1 INH INH SCH ×2 (06:00→18:42)
[2018-03-13 06:02] LABS: INR 2.29
[2018-03-13 06:47] LABS: PLATELET COUNT, AUTOMATED 320 K/uL (150-450)
--- NOTE | 2018-03-13 07:35 | RADIOLOGY IMAGING REPORT ---
FAC[place] [facility] [place] NAME: Adelina Ballesteros : 1935 MR: [id number] V: [id number] EXAM DATE: ORDERING PHYSICIAN: LY HICKEY TECHNOLOGIST: Location: [facility] - [place] Patient: Adelina Ballesteros : 1935 Visit/Account:[id number] Date of Sevice: 03/13/2018 INDICATION: intubation, aspiration pneumonia. DATE: 03/13/2018 7:30 AM. TECHNIQUE: CHEST SINGLE AP COMPARISON: Chest radiograph March 12, 2018 FINDINGS: The endotracheal tube remains above the lizbet. Support wires partially obscure the chest. Interstitial reticulation is extensive, especially in the right lung. There are small effusions. Ster notomy wires and valvular replacements noted. Left chest ICD noted. The esophagogastric tube tip is o ff the image edge. IMPRESSION: No significant change. Report Dictated By: Erendira Linder MD at 03/13/2018 7:30 AM Report E-Signed By: Erendira Linder MD at 03/13/2018 7:32 AM WSN:[id number]
--- NOTE | 2018-03-13 08:13 | Hospitalist Progress Note ---
Subjective Progress Notes Subjective Intubated/sedated. She did well for short time off sedation and on CPAP trial yesterday. Physical Exam Vital Signs Date Time Temp Pulse Resp B/P (MAP) Pulse Ox O2 Delivery O2 Flow Rate FiO2 03/13/18 07:49 30.0 03/13/18 06:39 96 Mechanical Ventilator 03/13/18 06:39 65 12 03/13/18 06:30 157/67 (97) 03/13/18 04:00 97.4 03/10/18 10:25 15.0 General Appearance: Other (sedated on ventilator) Cardiovascular: Regular Rate and Rhythm Respiratory: Other (much improved breath sounds at bases) GI: Other (Rare BS) Extremities: Warm, Perfused, Edema (trace) Integumentary: Generalized Fragile Skin Result Diagram: 03/13/1851903/13/18 0520 Item Value Date Time Blood Gas Puncture Site Left radial 03/13/18 0515 Blood Gas Patient Temperature 97.4 DEGREES 03/13/18 0515 Arterial Blood pH 7.47 H 03/13/18 0515 Arterial Blood Partial Pressure CO2 36 mmHg 03/13/18 0515 Arterial Blood Partial Pressure O2 69 mmHg 03/13/18 0515 Arterial Blood HCO3 26 mmol/L 03/13/18 0515 Arterial Blood Oxygen Saturation 95 % 03/13/18 0515 Arterial Blood Base Excess 3.0 mmol/L 03/13/18 0515 Hosea Test Nt avail 03/13/18 0515 Oxygen Liters/Minute 30% 03/13/18 0515 Monitor Interpretation: Other (paced rhythm) Assessment and Plan Problems: (1) Acute respiratory failure with hypoxemia Assessment & Plan: The patient had a recurrent aspiration event 03/10/18. She decompensated. She decided that she would want to proceed with intubation and mechanical ventilation. She was successfully intubated by anesthesia without removing her cervical-collar. She is now sedated on propofol and is tolerating the ventilator well. Her CXR shows improved aeration throughout and her O2 requirement is significantly better. She is currently on an FiO2 of 30%. Will release sedation and see how she does with weaning/CPAP today. She should be able to be extubated soon. (2) Aspiration pneumonia Assessment & Plan: She has now had several aspiration events. Her chest x-ray has shown a left lower lobe infiltrate and lesser right lower lobe involvement. She is on empiric treatment with IV Zosyn. At this point, the patient and her family would like to continue aggressive management. They do understand she may have an underlying cause for her aspiration such as a possible stroke. We cannot do an MRI due to pacemaker. She dos have a better C-collar now. Unfortunately, she is high risk to aspirate again once she is extubated. Family is aware of this. (3) Rib fracture Status: Acute Assessment & Plan: She had a fall on 03/06. Her X-ray showed a fracture of the left 10th rib. (4) Acute diastolic heart failure Status: Resolved Assessment & Plan: She did present with increased shortness of breath and her chest x-ray showed worsening bilateral pleural effusions. An echocardiogram did show a preserved ejection fraction at 55-60%. Will watch closely and diurese as needed (and as tolerated). (5) Hyponatremia Status: Chronic Assessment & Plan: She has had recurrent problems with hyponatremia, but her levels were lower now than they have been. She was improving with sodium tablets, but these have been placed on hold secondary to her aspiration. (6) Urine retention Status: Acute Assessment & Plan: She did have a post void residual of 450cc. She now has a Vides catheter in place. (7) Fracture of C1 vertebra, closed Status: Chronic Assessment & Plan: She did recently suffer a C1 fracture and remains in a collar. This may also be complicating her ability to swallow effectively. She is being followed by Dr. Navas as an outpatient. (8) Atrial fibrillation Status: Chronic Assessment & Plan: She is on chronic treatment with metoprolol and warfarin. She has pacemaker in place. Her warfarin is currently on hold secondary to aspiration. Her INR is still in therapeutic range. Will initiate Lovenox when INR drops below 2.0. (9) Essential hypertension Status: Chronic Assessment & Plan: She is on chronic treatment with metoprolol. Currently this is ordered IV. (10) Hypomagnesemia Status: Acute Assessment & Plan: Improved with supplementation. (11) Raynaud disease Status: Chronic Assessment & Plan: She has rather significant findings in her right hand/ fingers. She does continue to smoke. She has been on aspirin and warfarin. Central Venous Access Medical Necessity for Access: Hemodynamic Monitoring, IV Access, Medication Administration Exam Sepsis Risk: No Definite Risk Problem Qualifiers (1) Rib fracture: Laterality: left HICKEY,MARTEN A MD Mar 13, 2018 08:13
[2018-03-13] MEDS: NYSTATIN 5 ML UDCUP PO SCH ×4 (08:47→20:56)
[2018-03-13] MEDS: PANTOPRAZOLE SOD 40 MG IV VIAL IVP SCH ×2 (08:47→20:56)
[2018-03-13] MEDS: ORAL SUCTION/CHLORHX/SWAB KIT MT SCH (08:49)
[2018-03-13] MEDS ORDERED: FUROSEMIDE 20 MG/2 ML VIAL IVP ONE (09:00)
[2018-03-14] VITALS (21 sets, daily range): BP systolic 135–172; BP diastolic 43–103
[2018-03-14] MEDS: TOBRAMYCIN 0.3% OP SOLN 5 ML OD SCH ×5 (00:14→20:46)
[2018-03-14] MEDS: METOPROLOL TART 5 MG/5 ML VIAL IVP SCH ×4 (00:14→17:30)
[2018-03-14] MEDS: PIPERACILLIN/TAZO*3.375GM VIAL 3.375 GM in NS(*) 0.9% 100 ML ADDVANT BAG 100 ML IVPB SCH ×4 (02:28→20:45)
[2018-03-14] MEDS: HYDROCORTISONE 100 MG/2 ML IVP SCH ×2 (04:02→15:36)
[2018-03-14 05:35] LABS: PLATELET COUNT, AUTOMATED 317 K/uL (150-450)
[2018-03-14] MEDS: SALMETEROL/FLUTIC 100/50 1 INH INH SCH ×2 (05:38→17:09)
[2018-03-14 05:40] LABS: INR 1.52
--- NOTE | 2018-03-14 06:39 | RADIOLOGY IMAGING REPORT ---
FACILITY: [facility] PATIENT NAME: Adelina Ballesteros : 1935 MR: [id number] V: [id number] EXAM DATE: ORDERING PHYSICIAN: TIMO HICKEY TECHNOLOGIST: [place] [facility] [place] Adelina Ballesteros : 1935 Visit/Account:[id number] Date of Sevice: 03/14/2018 INDICATION: intubated. DATE: 03/14/2018 6:26 AM. TECHNIQUE: CHEST SINGLE AP COMPARISON: Radiographs of one day prior FINDINGS: The esophagogastric tube and endotracheal tube have been removed. There is now near-complet e whiteout of the left chest. Small right pleural effusion. Extensive reticulation in the right lung is unchanged. IMPRESSION: New near complete white out of the left chest since endotracheal and esophagogastric tube removal. Results were called by telephone directly to Dr. TIMO HICKEY at 03/14/2018 6:35 AM. Report Dictated By: Erendira Linder MD at 03/14/2018 6:26 AM Report E-Signed By: Erendira Linder MD at 03/14/2018 6:36 AM WSN:[id number]
[2018-03-14] MEDS ORDERED: KCL (*) 20 MEQ/100 ML PREMIX 100 ML IV ONE (06:45)
[2018-03-14] MEDS: KCL 20 MEQ/50 ML PREMIX 50 ML IV SCH ×4 (07:20→13:23)
[2018-03-14] MEDS: NYSTATIN 5 ML UDCUP PO SCH ×4 (08:55→20:59)
[2018-03-14] MEDS: FUROSEMIDE 40 MG/4 ML VIAL IVP SCH ×2 (08:56→13:47)
[2018-03-14] MEDS: NS(*) 0.9% 1000 ML BAG 1,000 ML IV PRN (09:32)
[2018-03-14] MEDS: PANTOPRAZOLE SOD 40 MG IV VIAL IVP SCH ×2 (09:33→20:59)
--- NOTE | 2018-03-14 09:52 | Hospitalist Progress Note ---
Subjective Progress Notes Subjective This patient was admitted for heart failure and then had an aspiration event leading to respiratory failure. She was extubated yesterday. There were no acute events overnight. Patient Complains of: Cardiovascular: No: Chest Pain Respiratory: Cough, Shortness of Breath Physical Exam Vital Signs Date Time Temp Pulse Resp B/P (MAP) Pulse Ox O2 Delivery O2 Flow Rate FiO2 03/14/18 06:00 63 17 148/59 (88) 95 High-Flow Nasal Cannula 5.0 03/14/18 05:00 97.9 03/13/18 09:30 30.0 Intake and Output 03/15/18 07:00 Intake Total 415 ml Output Total 365 ml Balance 50 ml IV Total 415 ml Output Urine Total 365 ml Neuro: No Gross deficits Eyes: PERRLA Cardiovascular: Regular Rate and Rhythm Respiratory: Other (Bilateral pleural effusions present increased on left.) Extremities: No Edema Integumentary: No Cyanosis Result Diagram: 03/14/18 0512 03/14/18 0512 Item Value Date Time Vitamin B12 Level 1487 pg/mL H 03/12/18 0508 Item Value Date Time Sputum Culture - Final Complete 03/04/18 1630 Sputum Haemophilus Haemolyticus Imaging Chest x-ray reviewed. Monitor Interpretation: Other (paced rhythm) Assessment and Plan Problems: (1) Acute respiratory failure with hypoxemia Assessment & Plan: The patient had a recurrent aspiration event 03/10/18. She did require intubation and mechanical ventilation. She was successfully intubated by anesthesia without removing her cervical-collar. She was successfully extubated yesterday. (2) Aspiration pneumonia Assessment & Plan: She has now had several aspiration events. Her chest x- rays have shown intermittent infiltrates. She remains on Zosyn and her sputum culture is growing a Haemophilus sp. Her chest x-ray was clear yesterday, but today shows increased infiltrate/ effusion on the left. She does remain on hydrocortisone. (3) Rib fracture Status: Acute Assessment & Plan: She had a fall on 03/06. Her X-ray showed a fracture of the left 10th rib. (4) Acute diastolic heart failure Status: Resolved Assessment & Plan: She did present with increased shortness of breath and her chest x-ray showed worsening bilateral pleural effusions. An echocardiogram did show a preserved ejection fraction at 55-60%. Her weight is increased about 10Kg today. We will give her scheduled Lasix today. (5) Hyponatremia Status: Chronic Assessment & Plan: She has had recurrent problems with hyponatremia, but her levels were lower now than they have been. She was improving with sodium tablets, but these have been placed on hold secondary to her aspiration. (6) Urine retention Status: Acute Assessment & Plan: She did have a post void residual of 450cc. She now has a Vides catheter in place. (7) Fracture of C1 vertebra, closed Status: Chronic Assessment & Plan: She did recently suffer a C1 fracture and remains in a collar. This may also be complicating her ability to swallow effectively. She is being followed by Dr. Navas as an outpatient. (8) Atrial fibrillation Status: Chronic Assessment & Plan: She is on chronic treatment with metoprolol and warfarin. She has pacemaker in place. Her warfarin is currently on hold secondary to aspiration. Her INR is still in therapeutic range. Will initiate Lovenox when INR drops below 2.0. (9) Essential hypertension Status: Chronic Assessment & Plan: She is on chronic treatment with metoprolol. Currently this is ordered IV. (10) Hypomagnesemia Status: Acute Assessment & Plan: Improved with supplementation. (11) Raynaud disease Status: Chronic Assessment & Plan: She has rather significant findings in her right hand/ fingers. She does continue to smoke. She has been on aspirin and warfarin. (12) Hypokalemia Assessment & Plan: She is scheduled to receive two K-ridders today. A repeat chemistry is ordered for later today. (13) Severe malnutrition Assessment & Plan: Dietary is following for recommendations. Central Venous Access Medical Necessity for Access: Hemodynamic Monitoring, IV Access, Medication Administration Exam Sepsis Risk: No Definite Risk Problem Qualifiers (1) Rib fracture: Laterality: left LUKAS ROSE DO Mar 14, 2018 09:52
--- NOTE | 2018-03-14 12:52 | Medical Nutrition Therapy ---
Nutrition Anthropometrics Height (Inches): 65.00 Height (Calculated Centimeters: 165.504342 Weight (Pounds): 123 Weight (Calculated Kilograms): 55.798 Js Nutrition Score: Very Poor Js Nutrition Risk Score: 15 Dietary Referral Nutrition Risk Factors: Significantly Underwt. Nutrition Risk Comment: 3-4 illness lost weight Nutritional Diagnosis Nutritional Risk Acuity 1: Malnutrition (per nutrition physical exam), Pulm Fail Vent Nutritional Risk Acuity 2: Swallowing Problem, Ileostomy Nutritional Risk Acuity 3: Fx & > 80 yrs, %IBW 81-89% Past Medical History: low BMI, COPD, PVD, CAD s/p CABG, GERD, Ischemic Colitis s/p Ileostomy, current smoker, bioprosthetic mitral valve and atrial fibrillation, HTN, low BMI, Raynaud disease Nutritional Acuity: 1-High Nutrition Diagnosis: Swallowing Difficulties, Under-weight, Altered GI Function (ileostom) Nutrition Etiology: Inadeq. Food/Luca Intake, Physiological Causes Nutrition Problem/Etiology/Sym: Swallowing difficulites r/t aspiration pneumonia AEB ST recommendation of dysphagia 3 diet and pt demonstrated aspiration event post meal. 03/14 Under-weight r/t inadequate food/luca intake AEB nutrition physical exam finding fat loss around eyes, severe muscle wasting in temporal region and in upper back Energy Requirement: 1726 ([place] x 1.25 AF x 1.2 SF = 1476 + 250 kcal to promote wt. gain for low BMI of 16.5.) Protein Requirement: 67.5 (1.5 g/kg x body wt. 45kg) Fluid Requirement: 1175 (25ml/kg) Diet Type: NPO (Nothing by Mouth) Nutrition Intervention: Incr diet as tolerated Drug: Diuretics Additional Diet Restrictions: ALLERGIC: MUSTARD Nutritional Support Current Enteral / Parental: Tube Feeding Tube Feeding Formulas: Jevity 1cal/ml-Standard, Specialty Formula (Promote) Current Tube Feeding Formula C: Start 30 cc/hr w/ final rate of 55 cc/hr x 24 hours Tube Feeding Supplement Streng: Full Feeding Route: FT Placed Oralgastric Rate: 55 cc/hr Current Duration: 24 Current Calories: 1320 Current Protein: 83 Total Current Calories: 1320 Recommended Enteral / Parental: Tube Feeding Nutrition Monitoring & Eval RD Patient Assessment Time: [address] Assessment Type: RD Re-Assessment Patient Nutrition Acuity: 1-High Follow Up Date: Mar 16, 2018 Nutritional Comment: 03/05 Pt admitted with low sodium and will be treated for hyponatremia, acute diastolic HF and pneumonia. She has hx of low sodium and had been on NA tablets but has discontinued tablets. She was recently inpatient for C1 fx on 02/10/18-02/14/18. She also had a hip fx in Jun 2017. Her wt is up 3# from Nov admit but still remains at 87% of IBW. Notable labs include low H/H, very low Na 120, chloride 88, tot pro 6.2 and alb 3.2. Currently on LAURA with intake of 50% of 2 meals. Will cont to monitor and encourage intake. -EK 03/10 Pt has dx aspriation pneu. Pt given baruim swallow and SPL recommended dyspagia 3 diet with thin liquid. Pt has aspiration event last night. Pt was then changed to NPO. Pt is now on mech vent. Wt cont stable. Pt has fall03/06 with resulting rib fx. H/H low, alb declined to 2.7, K+ low at 3.3,Na low at 126. Pt is recieving K+ supplement. BK 03/11 Pt. now on Jevity 1 tube feed starting at 30cc/hr with final rate of 70 cc/hr. This will provide 1780 kcal and 74g protein. Also on Propofol at rate of 14.7 mL/hr providing an additional 388 kcal. Currently getting 110% protein needs and 122% of kcal needs. Concerned she is being overfed. Recommend changing formula to Promote 1 at 55mL/hr. This would provide 1320 kcal and 82.5g protein + 388kcal from Propofol for 1708 kcal total. This meets 96% kcal and 122% protein needs. Pt. lost 6.6 lbs in 7 days, weight loss of 6%. BMI is now only 16.5 so kcal and protein needs adjusted for vent. and wt. loss. 03/11 14:00 TF changed to Promote at final rate of 55 ml/hr Alb. still 2.7, trending down. Hgb and Hct also low. Will continue to monitor feed, labs and wt. - RB 03/12 Pt at final rate of 55ml/hr Promote tolerating it well with minimal residuals. With propofol at 14.4mls/hr, TF plus propofol is meeting 115% est kcal and 122% est protein. Goal is to provide additional kcal from TF to assist with wt gain. TF is meeting 94% est fluid needs however pt is on IV meds and cont 1+Edema Rt LE. Alb at 2.4 cont to trend down. BG elevated up to 193. Will cont to monitor. BK 03/14 Pt. extubated yesterday but notes today say plural effusion on rt. side again. Tube feeding order active but not receiving. Awaiting LEAN SPECIALIST evaluation. Wt. also up 10 kg with 2+ edema so now on diuretic (K+ depleting) but also on supplement. Hypoactive bowel sounds. Did a nutrition-focused physical exam on her and found severely depleted fat stores around eyes and depleted muscle mass at temples and around shoulder blades. She is severely malnourished, concerned about low BMI and inactive tube feed. Alb. still trending down now at 2.5. Would recommend continuing tube feed unless pt. refuses or diet advanced. BECKA VALDES Mar 14, 2018 11:13
[2018-03-14] MEDS: ENOXAPARIN 30 MG/0.3 ML SYR SC SCH (13:46)
[2018-03-14] MEDS: KCL (*) 20 MEQ/100 ML PREMIX 100 ML IV SCH ×3 (18:46→23:01)
[2018-03-15] VITALS (15 sets, daily range): BP systolic 145–178; BP diastolic 54–74
[2018-03-15] MEDS: METOPROLOL TART 5 MG/5 ML VIAL IVP SCH ×3 (00:25→12:20)
[2018-03-15] MEDS: TOBRAMYCIN 0.3% OP SOLN 5 ML OD SCH ×3 (00:25→12:21)
[2018-03-15] MEDS: KCL (*) 20 MEQ/100 ML PREMIX 100 ML IV SCH (00:59)
[2018-03-15] MEDS: PIPERACILLIN/TAZO*3.375GM VIAL 3.375 GM in NS(*) 0.9% 100 ML ADDVANT BAG 100 ML IVPB SCH ×2 (02:35→08:59)
[2018-03-15] MEDS: NS(*) 0.9% 1000 ML BAG 1,000 ML IV PRN ×2 (02:42→09:10)
[2018-03-15] MEDS: LORazepam 2 MG/ML VIAL IVP PRN (02:43)
[2018-03-15] MEDS: HYDROCORTISONE 100 MG/2 ML IVP SCH (04:22)
[2018-03-15 05:07] LABS: INR 1.26
[2018-03-15] MEDS ORDERED: KCL (*) 20 MEQ/100 ML PREMIX 100 ML IV ONE ×4 (05:40→12:00)
[2018-03-15] MEDS ORDERED: MAGNESIUM SUL* 2 GM/50 ML IVPB 50 ML IVPB ONE (05:40)
[2018-03-15] MEDS: SALMETEROL/FLUTIC 100/50 1 INH INH SCH (05:49)
--- NOTE | 2018-03-15 07:01 | RADIOLOGY IMAGING REPORT ---
[place] [facility] [place] NAME: Adelina Ballesteros : 1935 MR: [id number] V: [id number] EXAM DATE: ORDERING PHYSICIAN: LY HICKEY TECHNOLOGIST: Location: [facility] Patient: Adelina Ballesteros : 1935 Visit/Account:[id number] Date of Sevice: 03/15/2018 CHEST SINGLE AP COMPARISONS: Single view chest dated March 14, 2018 ADDITIONAL PERTINENT HISTORY: Pneumonia with bilateral pleural effusions. FINDINGS: Cardiomediastinal silhouette: Continued placement of a multilead left-sided cardiac pacemaker. Patie nt status post valvular replacement. Pulmonary vasculature: Atherosclerotic disease of the thoracic aorta. Lung bazan: Continued patchy infiltrate involving the right lung base. Dense opacity involving the left hemithorax. Pleural spaces: Large left-sided pleural effusion. Small the moderate sized right-sided pleural effus ion. Osseous structures: Osteoarthritic changes involving the left shoulder. Surrounding soft tissues: Negative. IMPRESSION: No significant change since previous exam. Report Dictated By: Jose Turner MD at 03/15/2018 6:55 AM Report E-Signed By: Jose Turner MD at 03/15/2018 6:58 AM WSN:[id number]
[2018-03-15] MEDS ORDERED: ALBUTEROL/IPRATROPIUM 3 ML NEB NEB PRN (08:20)
[2018-03-15] MEDS ORDERED: [UNRECOGNIZED DRUG - OTHER] INH PRN ×3 (08:20→11:15)
[2018-03-15] MEDS: PANTOPRAZOLE SOD 40 MG IV VIAL IVP SCH (08:58)
[2018-03-15] MEDS: ENOXAPARIN 30 MG/0.3 ML SYR SC SCH (09:00)
[2018-03-15] MEDS: NYSTATIN 5 ML UDCUP PO SCH ×2 (09:00→13:18)
--- NOTE | 2018-03-15 11:22 | Hospitalist Progress Note ---
Subjective Progress Notes Subjective Patient denies any sob. The patient is without concerns. Physical Exam Vital Signs Date Time Temp Pulse Resp B/P (MAP) Pulse Ox O2 Delivery O2 Flow Rate FiO2 03/15/18 11:00 98.1 66 24 160/61 (94) 95 High-Flow Nasal Cannula 5.0 03/14/18 20:13 30.0 Intake and Output 03/16/18 07:00 Intake Total 110 ml Output Total 500 ml Balance -390 ml IV Total 110 ml Output Urine Total 500 ml General Appearance: Alert, Awake, No Acute Distress Neuro: Other (Knows where she is and month. ) Cardiovascular: Regular Rate and Rhythm Respiratory: Other (Decreases BS on left) Extremities: Edema (2+ pitting in posterior thighs) Result Diagram: 03/15/18 0435 03/15/18 043 Monitor Interpretation: Other (paced rhythm) Assessment and Plan Problems: (1) Aspiration pneumonia Assessment & Plan: She has now had several aspiration events. Her chest x-ray shows almost complete white out of the left lung one day after she was extubated with only the apex aerating. She remains on Zosyn and her sputum culture is growing a Haemophilus sp. She does remain on hydrocortisone. Because of weakness, neck collar, and COPD she is likely going to continue aspirating. She is currently NPO. The patient reports not wanting to go back on the ventilator, but she seems to have a limited understanding of what that entails. I spoke with her son and medical POA, Hansel, and he is going to talk with his family about making her DNI and possibly comfort care only. Will try Mucomyst/DuoNeb/Metaneb to see if left lung can be aerated better. (2) Acute respiratory failure with hypoxemia Assessment & Plan: The patient had a recurrent aspiration event 03/10/18. She did require intubation and mechanical ventilation. She was successfully intubated by anesthesia without removing her cervical-collar. She was successfully extubated on 03/13/18. (3) Rib fracture Status: Acute Assessment & Plan: She had a fall on 03/06. Her X-ray showed a fracture of the left 10th rib. (4) Acute diastolic heart failure Status: Resolved Assessment & Plan: She did present with increased shortness of breath and her chest x-ray showed worsening bilateral pleural effusions. An echocardiogram did show a preserved ejection fraction at 55-60%. Her weight is increased about 10Kg. We will give her scheduled Lasix, but need to replace potassium first. (5) Hyponatremia Status: Chronic Assessment & Plan: She has had recurrent problems with hyponatremia, but her levels were lower now than they have been. She was improving with sodium tablets, but these have been placed on hold secondary to her aspiration. Her sodium is wnl currently. (6) Urine retention Status: Acute Assessment & Plan: She did have a post void residual of 450cc. She now has a Vides catheter in place. (7) Fracture of C1 vertebra, closed Status: Chronic Assessment & Plan: She did recently suffer a C1 fracture and remains in a collar. This may also be complicating her ability to swallow effectively. She is being followed by Dr. Navas as an outpatient. (8) Atrial fibrillation Status: Chronic Assessment & Plan: She is on chronic treatment with metoprolol and warfarin. She has pacemaker in place. Her warfarin is currently on hold secondary to aspiration. Getting Lovenox 30mg a day. (9) Essential hypertension Status: Chronic Assessment & Plan: She is on chronic treatment with metoprolol. Currently this is ordered IV. (10) Hypomagnesemia Status: Acute Assessment & Plan: Improved with supplementation. (11) Raynaud disease Status: Chronic Assessment & Plan: She has rather significant findings in her right hand/ fingers. She does continue to smoke. She has been on aspirin and warfarin. (12) Hypokalemia Assessment & Plan: She is scheduled to receive KCL IV today. (13) Severe malnutrition Assessment & Plan: Dietary is following for recommendations. Central Venous Access Medical Necessity for Access: Hemodynamic Monitoring, IV Access, Medication Administration Exam Sepsis Risk: No Definite Risk Problem Qualifiers (1) Rib fracture: Laterality: left LEONEL TREVINO MD Mar 15, 2018 11:22
[2018-03-15] MEDS ORDERED: MORPHINE 2 MG/ML SYR IVP PRN (12:35)
[2018-03-15] MEDS ORDERED: LORazepam 2 MG/ML VIAL IVP PRN (12:40)
--- NOTE | 2018-03-15 12:40 | Miscellaneous Provider Note ---
Miscellaneous Provider Note Note After speaking with the family (including Hansel, the medical POA) and discussing the fact that she has worsened since admission instead of improving and that she has evidence of lung obstruction likely from aspiration despite not getting any food or drink; they have decided to make her comfort care only. LEONEL TREVINO MD Mar 15, 2018 12:40
--- NOTE | 2018-03-15 13:13 | SWALLOW EVALUATION ---
SWALLOW ASSESSMENT Physician: Jb De Leon MD Clinician: Vicky Emmanuel MS, CCC-ADULT SCHOOL COUNSELOR Type of Assessment: Dysphagia Evaluation, Cognitive Linguistic Assessment Patient: Adelina Ballesteros : 1935, 82yrs Evaluation Date: 03/09/2018 BACKGROUND The patient is an 82 year old female admitted to [facility] following ER visit on 03/04 w/ shortness of breath, cough, and low sodium levels. CXR illustrated bilateral pleural effusion. She was intubated 03-10-18 d/t O2 desat.. Extubation was 03-13-18. She is wearing a cervical brace d/t fracture. Pt has been NPO since extubation. ST swallow evaluation was ordered to further evaluate swallow structure and function to for recommendation for return to PO intake. Primary Medical Diagnosis: acute diastolic heart failure Additional Medical Hx: pneumonia, hyponatremia, C1 fx, A fib, HTN Pain Scale (0-10): Patient w/ no reports of pain. LOC / Participation: alert, pleasant, cooperative. Follows instructions: yes Orientation: A&O x4. Functional Communication Deficits impact swallow function/safety, or response to therapy: No. VOICE Decreased volume and breathiness. DYSPHAGIA Sialorrhea: No Xerostomia: No Supplemental Oxygen Use: Yes. 3.0 L via NC. Oxygen Saturation: 97-99% %. Remains stable across entirety of PO trials Respiratory Rate: Remains stable throughout food/liquid trials COPD Dx: No Pain with Swallow: Denies Oral Structure and Function: Top and bottom dentures were in place during PO trials. Patient able to elicit strong protective cough when cued, Cough wet at baseline. Administered PO trials of thin liquids via spoon (5ml), then straw (10-15ml), pureed solids, mech soft solids. Only regular solids were problematic. Pt struggled with mastication with regular foods and ultimately was cued to spit the bolus out. With the exception of regular foods, no residuals were noted. No cough response with multiple (15) thin liquid trials from straw. Respiratory/Swallow Coordination: WFL ST ASSESSMENT SUMMARY DYSPHAGIA Overall, pt presents with mildly elevated risk for aspiration d/t to generalized weakness, limited positioning options d/t cervical brace, oral phase dysphagia, compromised respiratory status. The patient is likely aspirating saliva as per CXR results when pt was NPO. MBSS to objectively analyze oropharyngeal anatomy/physiology is appropriate given hx of aspiration, however the patient/family have decided to more forward with comfort care at this time. Speech Therapy Need No further ST recommended at this time. They are moving forward with comfort care. RECOMMENDATIONS 1. Diet Modification: Mechanical soft foods, regular/thin liquids, straws ok, medications one at a time. 2. Compensatory Techniques: regular oral hygiene following meals, upright positioning during PO intake, small bites/small sips, 3 Pills: one at a time, with puree. Thank you for this referral. Vicky Emmanuel M.S., [facility]-ADULT SCHOOL COUNSELOR Speech Therapist [facility]
--- NOTE | 2018-03-15 17:05 | Hospitalist Depart ---
Discharge Summary Reason for Hosp/Final Diag: (1) End of life care Status: Acute Hospital Course & Plan: After speaking with the family (including Hansel, the medical POA) and discussing the fact that she has worsened since admission instead of improving and that she has evidence of lung obstruction likely from aspiration despite not getting any food or drink; they have decided to make her comfort care only. I discussed the plan with the patient and she seemd to have understanding of what was going on and is in agreement. She will be moved to the [facility]. (2) Aspiration pneumonia Hospital Course & Plan: She has now had several aspiration events. Her chest x -ray shows almost complete white out of the left lung one day after she was extubated with only the apex aerating. She was on Zosyn and her sputum culture was growing a Haemophilus sp. She does remain on hydrocortisone. Because of weakness, neck collar, and COPD she is likely going to continue aspirating. See above. Her diet has been advanced for comfort, but also she was cleared to have some food intake per ST. (3) Acute respiratory failure with hypoxemia Hospital Course & Plan: The patient had a recurrent aspiration event 03/10/18. She did require intubation and mechanical ventilation. She was successfully intubated by anesthesia without removing her cervical-collar. She was successfully extubated on 03/13/18. (4) Rib fracture Status: Acute Hospital Course & Plan: She had a fall on 03/06. Her X-ray showed a fracture of the left 10th rib. (5) Acute diastolic heart failure Status: Resolved Hospital Course & Plan: She did present with increased shortness of breath and her chest x-ray showed worsening bilateral pleural effusions. An echocardiogram did show a preserved ejection fraction at 55-60%. Her weight is increased about 10Kg. IV Lasix was attempted, but was limited by hypokalemia. (6) Hyponatremia Status: Chronic Hospital Course & Plan: She has had recurrent problems with hyponatremia, but her levels were lower now than they have been. She was improving with sodium tablets, but these have been placed on hold secondary to her aspiration. Her sodium is wnl currently. (7) Urine retention Status: Acute Hospital Course & Plan: She did have a post void residual of 450cc. She now has a Vides catheter in place. (8) Fracture of C1 vertebra, closed Status: Chronic Hospital Course & Plan: She did recently suffer a C1 fracture and remains in a collar. This may also be complicating her ability to swallow effectively. She is being followed by Dr. Navas as an outpatient. (9) Atrial fibrillation Status: Chronic Hospital Course & Plan: She is on chronic treatment with metoprolol and warfarin. She has pacemaker in place. Her warfarin is currently on hold secondary to aspiration. Will try to give metoprolol for rate control (10) Essential hypertension Status: Chronic Hospital Course & Plan: She is on chronic treatment with metoprolol, will try to give it orally. (11) Hypomagnesemia Status: Acute Hospital Course & Plan: Improved with supplementation. (12) Raynaud disease Status: Chronic Hospital Course & Plan: She has rather significant findings in her right hand/ fingers. She was smoking prior to admission. She has been on aspirin and warfarin. (13) Hypokalemia Hospital Course & Plan: She is scheduled to receive KCL IV today. (14) Severe malnutrition Hospital Course & Plan: Dietary is following for recommendations. Departure Weight (Pounds): 106 Weight (Ounces): 3.0 Result Diagram: 03/15/18 0435 03/15/18 0435 Item Value Date Time White Blood Count 5.6 k/uL 03/04/18 1432 White Blood Count 4.1 k/uL L 03/05/18 0543 Hemoglobin 10.6 g/dL L 03/04/18 1432 Hemoglobin 9.4 g/dL L 03/05/18 0543 Platelet Count 368 K/uL 03/04/18 1432 Platelet Count 335 K/uL 03/05/18 0543 Hemoglobin 10.8 g/dL L 03/06/18 0543 Hemoglobin 9.7 g/dL L 03/07/18 0539 Hemoglobin 9.2 g/dL L 03/09/18 0520 Hemoglobin 9.1 g/dL L 03/10/18 0518 Hemoglobin 8.9 g/dL *L 03/11/18 0534 White Blood Count 7.5 k/uL 03/11/18 0534 White Blood Count 11.0 k/uL 03/10/18 0518 White Blood Count 7.8 k/uL 03/09/18 0520 White Blood Count 7.5 k/uL 03/07/18 0539 White Blood Count 6.4 k/uL 03/06/18 0543 Platelet Count 381 K/uL 03/06/18 0543 Platelet Count 353 K/uL 03/09/18 0520 Platelet Count 326 K/uL 03/11/18 0534 Hemoglobin 9.2 g/dL L 03/12/18 0508 Hemoglobin 10.5 g/dL L 03/14/18 0512 Hemoglobin 10.2 g/dL L 03/15/18 0435 White Blood Count 14.5 k/uL H 03/15/18 0435 White Blood Count 10.2 k/uL 03/13/18 0520 White Blood Count 9.5 k/uL 03/12/18 0508 White Blood Count 12.1 k/uL H 03/14/18 0512 Platelet Count 341 K/uL 03/15/18 0435 Platelet Count 317 K/uL 03/14/18 0512 Platelet Count 320 K/uL 03/13/18 0520 Platelet Count 354 K/uL 03/12/18 0508 Absolute Reticulocyte Count 0.0543 10^6/uL 03/12/18 0508 Percent Reticulocyte Count 1.75 % 03/12/18 0508 Corrected Reticulocyte % 1.13 % 03/12/18 0508 Stool Occult Blood (IFOB) Negative 03/12/18 1506 Urine Osmolality 469 mosm/K L 03/04/18 193 Urine Random Sodium 29 MEQ/L 03/04/181930 Urine RBC None /HPF 03/04/181930 Urine Squamous Epithelial Cells None /LPF 03/04/181930 Urine Bacteria Negative /HPF 03/04/181930 Urine WBC None /HPF 03/04/181930 Urine Hyaline Casts Few /LPF 03/04/181930 Urine Mucus None /HPF 03/04/181930 Prothromb Time International Ratio 2.03 03/11/18 0534 Prothromb Time International Ratio 2.74 03/12/18 0508 Prothromb Time International Ratio 2.29 03/13/18 0520 Prothromb Time International Ratio 1.52 03/14/18 0512 Prothromb Time International Ratio 1.26 03/15/18 0435 Potassium Level 2.7 mmol/L *L 03/15/18 0435 Potassium Level 2.5 mmol/L *L 03/14/18 1723 Potassium Level 2.2 mmol/L *L 03/14/18 0512 Potassium Level 3.5 mmol/L 03/13/18 0520 Total Bilirubin 0.5 mg/dl 03/15/18 0435 Aspartate Amino Transf (AST/SGOT) 27 U/L 03/15/18 0435 Alanine Aminotransferase (ALT/SGPT) 25 U/L 03/15/18 0435 Alkaline Phosphatase 60 U/L 03/15/18 0435 Magnesium Level 1.7 mg/dl 03/15/18 0435 Ferritin 548 ng/ml H 03/12/18 0508 Iron Level 61 ug/dl 03/12/18 0508 Total Iron Binding Capacity 232 ug/dl L 03/12/18 0508 Percent Iron Saturation 26.3 % 03/12/18 0508 Vitamin B12 Level 1487 pg/mL H 03/12/18 0508 Folate 16.1 ng/mL 03/12/18 0508 B-Type Natriuretic Peptide 414 pg/ml H 03/09/18 0520 Sodium Level 126 mmol/L L 03/10/18 0518 Sodium Level 123 mmol/L *L 03/09/18 0520 Sodium Level 123 mmol/L *L 03/08/18 0514 Sodium Level 120 mmol/L *L 03/05/18 0543 Sodium Level 122 mmol/L *L 03/06/18 0543 Sodium Level 123 mmol/L *L 03/06/18 1657 Sodium Level 122 mmol/L *L 03/07/18 0539 B-Type Natriuretic Peptide 851 pg/ml H 03/04/18 2107 Troponin I 0.034 ng/ml 03/04/18 1432 Sodium Level 119 mmol/L *L 03/04/18 1432 Lactate 1.6 mmol/L 03/04/18 1432 Arterial Blood pH 7.56 H 03/11/18 0534 SPEC #: [id number] MARILIN: 03/10/18 STATUS: COMP REQ #: [id number] RECD: 03/10/[address]: HIMANSHU HERNANDEZ HOSE CEMENTER SOURCE: SPUT ENDOT ENTR: 03/10/[address]: ANA VILLALOBOS PA-C SPDESC: LUKAS ROSE DO ORDERED: CULT SPUTUM/GS Procedure Result Verified GRAM STAIN Final 03/10/18-1231 MANY WHITE BLOOD CELLS MANY MUCUS NO EPITHELIAL CELLS NO ORGANISMS SEEN SPUTUM CULTURE Final 03/12/18-938 NO GROWTH AFTER 2 DAYS SPEC #: [id number] MARILIN: 03/04/18 STATUS: COMP REQ #: [id number] RECD: 03/04/[address] [facility] [address]: LAM FLOWERS MD SOURCE: SPUTUM ENTR: 03/04/[address] [facility] [address]: ANA VILLALOBOS PA-C SPDESC: LUKAS ROSE DO ORDERED: CULT SPUTUM Procedure Result Verified SPUTUM CULTURE Final 03/08/18-0199 Organism 1 HAEMOPHILUS HAEMOLYTICUS 4+ GROWTH 2+ NORMAL RESPIRATORY LAWRENCE ALSO PRESENT Imaging Too numerous to mention. See the hospital chart for details. Condition: No Change Discharge: Hospice PT/OT Follow Up For: PT For Strengthening Home Health RN Follow Up For: Nursing Assessment Discharge Instructions Home Meds Active Scripts Fluticasone/Salmeterol (ADVAIR 100-50 DISKUS) 1 Each Disk.w.dev, 1 EACH INH BIDR for 14 Days, Prov:LEONEL TREVINO MD 02/14/18 Pantoprazole Sodium (PANTOPRAZOLE SODIUM) 40 Mg Tablet.dr, 1 TAB PO QDAY, #90 TAB.SR 4 Refills Prov:CHIP PEDRO MD 09/01/17 Simvastatin (SIMVASTATIN) 20 Mg Tablet, 1 TAB PO HS, #90 TAB 4 Refills Prov:CHIP PEDRO MD 10/05/16 [place]-3 Fatty Acids/Fish Oil (FISH OIL 1,000 MG SOFTGEL) 1 Each Capsule, 1 EACH PO QDAY, #30 CAPSULE Prov:JACQUELINE HAIRSTON PHARMD 08/06/14 Reported Medications Warfarin Sodium (WARFARIN SODIUM) 5 Mg Tablet, 2.5 MG PO DIRECTED, TAB Tuesdays03/05/18 Warfarin Sodium (WARFARIN SODIUM) 5 Mg Tablet, 5 MG PO DIRECTED, TAB Sun,Mon,Wed,Thur,Fri,Sat 03/04/18 Furosemide (LASIX) 20 Mg Tablet, 1 TAB PO QDAY, TAB 03/04/18 Metoprolol Succinate (METOPROLOL SUCCINATE) 50 Mg Tab.er.24h, 1 TAB PO BID, TAB 03/04/18 Oxygen (OXYGEN) Inha, 2 L INH HS, L 01/29/16 Multivitamin (DAILY MULTIPLE VITAMIN) 1 Each Tablet, 1 TAB PO DAILY 05/17/14 Aspirin (ASPIR 81) 81 Mg Tablet.dr, 1 TAB PO QDAY 05/17/14 Activity: As Tolerated Special Instructions: mechanical soft diet, c- collar for C-1 fracture. Family at bedside Copies to: ANA VILLALOBOS PA-C Venous Thromboembolism Antithrombotics Is Pt On Any Antithrombotics?: Yes Problem Qualifiers (1) Rib fracture: Laterality: left LEONEL TREVINO MD Mar 15, 2018 17:05
== END 2018-03-15 16:00 | DRG 291 ==
LOC: ER 13:31 → MED 16:46 → ICU 03-10 10:50
PROVIDERS: ADMIT Family Medicine; ATTEND Family Medicine
PROC: 30233M1 Transfusion of Nonautologous Plasma Cryoprecipitate into Peripheral Vein, Percutaneous Approach (ICD-10-PCS; principal; 2018-03-10)
PROC: 5A1945Z Respiratory Ventilation, 24-96 Consecutive Hours (ICD-10-PCS; 2018-03-10)
PROC: 0BH17EZ Insertion of Endotracheal Airway into Trachea, Via Natural or Artificial Opening (ICD-10-PCS; 2018-03-10)
PROC: 06HM33Z Insertion of Infusion Device into Right Femoral Vein, Percutaneous Approach (ICD-10-PCS; 2018-03-10)
DX: I11.0 Hypertensive heart disease with heart failure (principal); J69.0 Pneumonitis due to inhalation of food and vomit; S22.32XA Fracture of one rib, left side, initial encounter for closed fracture; J96.01 Acute respiratory failure with hypoxia; E43 Unspecified severe protein-calorie malnutrition; S12.000A Unspecified displaced fracture of first cervical vertebra, initial encounter for closed fracture; E87.1 Hypo-osmolality and hyponatremia; Z68.1 Body mass index [BMI] 19.9 or less, adult; E87.3 Alkalosis; I50.31 Acute diastolic (congestive) heart failure; Z51.5 Encounter for palliative care; E87.6 Hypokalemia; R33.9 Retention of urine, unspecified; F17.210 Nicotine dependence, cigarettes, uncomplicated; I73.9 Peripheral vascular disease, unspecified; I48.2 Chronic atrial fibrillation; E83.42 Hypomagnesemia; I73.00 Raynaud's syndrome without gangrene; W19.XXXA Unspecified fall, initial encounter; Y92.230 Patient room in hospital as the place of occurrence of the external cause; Y99.8 Other external cause status; Z91.040 Latex allergy status; Z95.0 Presence of cardiac pacemaker; Z79.01 Long term (current) use of anticoagulants; Z95.1 Presence of aortocoronary bypass graft; Z95.3 Presence of xenogenic heart valve
CPT/HCPCS: 36415; 36416; 36600; 71045; 71100; 71260; 81001; 82040; 82247; 82274; 82310; 82374; 82435; 82565; 82607; 82728; 82746; 82800; 82803; 82947; 82948; 83540; 83550; 83605; 83735; 83880; 83930; 83935; 84075; 84132; 84155; 84295; 84300; 84443; 84450; 84460; 84484; 84520; 85025; 85027; 85045; 85610; 86900; 86901; 87070; 87077; 87205; 92523; 93306; 94002; 94003; 94640; 94660; 94667; 94668; 94770; 97162; 97165; C9113; J1642; J1650; J1720; J1940; J2060; J2270; J2543; J2704; J3010; J3475; J3480; J3490; J7030; J7050; P9017; Q9967

== ENCOUNTER → 2018-03-04 | Outpatient (REF) | payer MEDICARE ==
[2018-02-14 10:26] VITALS: BMI 15.6
== END ==
LOC: ZZSENDIN 12:31
PROVIDERS: ATTEND Family Medicine
DX: E87.1 Hypo-osmolality and hyponatremia (principal)
CPT/HCPCS: 82310; 82374; 82435; 82565; 82947; 84132; 84295; 84520

== ENCOUNTER 2018-03-15 16:09 | Inpatient (IN) | payer MEDICARE ==
[2018-03-05 11:47] VITALS: Ht 165.1 cm; Wt 49.0 kg
[~2018-03-15] VITALS: Ht 165.1 cm; Wt 49.0 kg
[~2018-03-15 16:09] MED LIST changes: +FURO20TA19 PO; +METO50TA19 PO
[2018-03-15 16:15] VITALS: BP 142/61
[2018-03-15] MEDS ORDERED: HYDROCORTISONE 100 MG/2 ML IVP SCH (16:18)
[2018-03-15] MEDS ORDERED: HYPROMELLOSE 0.4% LUB 15ML BTL OU PRN (16:18)
[2018-03-15] MEDS ORDERED: HYDROCORTISONE 100 MG/2 ML IVP ONE (17:00)
[2018-03-15] MEDS: SALMETEROL/FLUTIC 100/50 1 INH INH SCH (17:14)
[2018-03-15] MEDS: [UNRECOGNIZED DRUG - OTHER] INH PRN (17:14)
[2018-03-15] MEDS: ALBUTEROL/IPRATROPIUM 3 ML NEB NEB PRN (17:14)
--- NOTE | 2018-03-15 17:15 | ECF H&P BLANK ---
ECF H&P UPDATE The patient has been moved to the [facility] for Comfort Care. See the Discharge Summary for details about the inpatient care and updates to the H&P. History of Present Illness Chief Complaint Low sodium History of Present Illness This patient presented to the emergency room after being found to have a low sodium level on routine labs. She also reports some increased shortness of breath and cough. She denies any fever or chills. History Problems: (1) Raynaud disease Status: Chronic (2) Essential hypertension Status: Chronic (3) Fracture of C1 vertebra, closed Status: Chronic (4) Cardiac pacemaker in situ Status: Chronic (5) Diverticulosis of colon Status: Chronic (6) Atrial fibrillation Status: Chronic (7) Ischemic colitis (8) PVD (peripheral vascular disease) Status: Chronic (9) Hyponatremia Status: Chronic (10) Hx of CABG Status: Chronic (11) History of ileostomy Status: Chronic (12) History of mitral valve replacement with bioprosthetic valve Status: Chronic Home Meds Active Scripts Fluticasone/Salmeterol (ADVAIR 100-50 DISKUS) 1 Each Disk.w.dev, 1 EACH INH BIDR for 14 Days, Prov:LEONEL TREVINO MD 02/14/18 Pantoprazole Sodium (PANTOPRAZOLE SODIUM) 40 Mg Tablet.dr, 1 TAB PO QDAY, #90 TAB.SR 4 Refills Prov:CHIP PEDRO MD 09/01/17 Simvastatin (SIMVASTATIN) 20 Mg Tablet, 1 TAB PO HS, #90 TAB 4 Refills Prov:CHIP PEDRO MD 10/05/16 [place]-3 Fatty Acids/Fish Oil (FISH OIL 1,000 MG SOFTGEL) 1 Each Capsule, 1 EACH PO QDAY, #30 CAPSULE Prov:JACQUELINE HAIRSTON PHARMD 08/06/14 Reported Medications Warfarin Sodium (WARFARIN SODIUM) 5 Mg Tablet, 5 MG PO QDAY, TAB 03/04/18 Furosemide (LASIX) 20 Mg Tablet, 1 TAB PO QDAY, TAB 03/04/18 Metoprolol Succinate (METOPROLOL SUCCINATE) 50 Mg Tab.er.24h, 1 TAB PO BID, TAB 03/04/18 Oxygen (OXYGEN) Inha, 2 L INH HS, L 01/29/16 Multivitamin (DAILY MULTIPLE VITAMIN) 1 Each Tablet, 1 TAB PO DAILY 05/17/14 Aspirin (ASPIR 81) 81 Mg Tablet.dr, 1 TAB PO QDAY 05/17/14 Discontinued Reported Medications Warfarin Sodium (WARFARIN SODIUM) 5 Mg Tablet, 5 MG PO QDAY, TAB 03/04/18 Warfarin Sodium (WARFARIN SODIUM) 5 Mg Tablet, 2.5-5 MG PO QDAY, TAB take as directed 02/14/18 Discontinued Scripts Sodium Chloride (SODIUM CHLORIDE) 1 Gm Tab, 1 GM PO BID, #60 TAB Prov:LEONEL TREVINO MD 02/14/18 Metoprolol Succinate (METOPROLOL SUCCINATE) 100 Mg Tab.er.24h, 1 TAB PO BID, # 180 TAB 4 Refills Prov:CHIP PEDRO MD 12/10/17 Allergies: Coded Allergies: latex (Verified Allergy, Mild, RASH, 02/10/18) mustard (Verified Allergy, Mild, 02/10/18) Patient History: FH: breast cancer SISTER, Age:71, Onset:55 SISTER, , Age:57 NIECE NIECE NIECE FH: diabetes mellitus FATHER, , Age:62 MOTHER, , Age:91 SON FH: heart disease FATHER, , Age:62 (mitral valve) MOTHER, , Age:91 SISTER, Age:81 FH: hypertension FH: lung disease SISTER, Age:81 FH: peptic ulcer disease SISTER, , Age:35 (perforated) FH: prostate cancer BROTHER, Age:76 FH: stroke MOTHER, , Age:91 Hx Smoking: Yes (1/2 to 1 ppd) Smoking Status: Current: Every Day Smoker, Heavy Tobacco Smoker Exposure to Second Hand Smoke?: No Caffeine Intake: Coffee, Tea, Soda Caffeine/Cups Per Day: 2 cups daily Hx Alcohol Use: No Hx Substance Use Disorder: No Review of Systems All Systems Reviewed/Normal: Yes, Except as Noted Respiratory: Shortness of Breath Exam Vital Signs Vital Signs Date Time Temp Pulse Resp B/P (MAP) Pulse Ox O2 Delivery O2 Flow Rate FiO2 03/04/18 19:59 98.3 67 16 133/55 (81) 98 Nasal Cannula 1.5 Neuro: No Gross deficits Eyes: PERRLA Cardiovascular: Regular Rate and Rhythm Respiratory: Other (Bilateral rhonchi) GI: Abd Soft and Non-Tender Extremities: No Edema Integumentary: No Cyanosis Medical Decision Making Data Points Result Diagram: 03/04/18 1432 03/04/18 1432 EKG / Imaging Imaging Chest x-ray reviewed. Assessment and Plan Problems: (1) Acute diastolic heart failure Status: Resolved Assessment & Plan: She did present with increased shortness of breath and her chest x-ray shows bilateral pleural effusions. We have requested a BNP and will give her a dose of Lasix. An echocardiogram and daily weight monitoring has also been ordered. (2) Hyponatremia Status: Chronic Assessment & Plan: She has had recurrent problems with hyponatremia, but her levels are lower now than they have been. We had previously placed her on sodium tablets, but it looks like these have been discontinued. Urine sodium and osmolality is pending. (3) Fracture of C1 vertebra, closed Status: Chronic Assessment & Plan: She did recently suffer a C1 fracture and remains in a collar. She is being followed by Dr. Navas as an outpatient. (4) Atrial fibrillation Status: Chronic Assessment & Plan: She is on chronic treatment with metoprolol and warfarin. Daily INR monitoring has been ordered. (5) Essential hypertension Status: Chronic Central Venous Access Medical Necessity for Access: Hemodynamic Monitoring, IV Access, Medication Administration Copies to: LUKAS CORDON MD Venous Thromboembolism Antithrombotics Is Pt On Any Antithrombotics?: Yes Exam Sepsis Risk: No Definite Risk LUKAS ROSE DO Mar 04, 2018 20:59 <Electronically signed by LUKAS ROSE DO> D/ 58 58 58 WHITNEY/TAVO CC: LUKAS CORDON MD Central Line Progress Note Medical Necessity for Central: Hemodynamic Monitoring, IV Access, Medication Administration LEONEL TREVINO MD Mar 15, 2018 17:15
[2018-03-15] MEDS: NYSTATIN 5 ML UDCUP PO SCH ×2 (17:22→20:58)
--- NOTE | 2018-03-15 18:31 | Consultant Pharmacy Review ---
Medical Historian Review Medication Review Do All Mecications have a Diag: Yes Other General Cautions * * * * Print * Help Lexicomp Interaction Analysis A = No known interaction C = Monitor therapy X = Avoid combination B = No action needed D = Consider therapy modification Drugs in this analysis: Acetylcysteine; Advair Diskus; Artificial Tears; Ativan ; DuoNeb [DSC]; Hydrocortisone (Systemic); Metoprolol; Morphine (Systemic); Nystatin (Oral); Tobrex * Drug-Drug Interactions * D Ativan (LEVERMAN Depressants) Morphine (Systemic) (Opioid Analgesics) C Advair Diskus (Beta2-Agonists) Metoprolol (Beta-Blockers (Beta1 Selective)) C Advair Diskus (Sympathomimetics) DuoNeb [DSC] (Sympathomimetics) C DuoNeb [DSC] (Anticholinergic Agents) Morphine (Systemic) (Opioid Analgesics ) C DuoNeb [DSC] (Beta2-Agonists) Metoprolol (Beta-Blockers (Beta1 Selective)) C Metoprolol (Blood Pressure Lowering Agents) Morphine (Systemic) (Hypotension -Associated Agents) B Advair Diskus (Beta2-Agonists) Hydrocortisone (Systemic) (Corticosteroids) B DuoNeb [DSC] (Beta2-Agonists) Hydrocortisone (Systemic) (Corticosteroids) Pneumococcal Vaccine HX Pneumo Vac ([id number]): Yes (2014) HX Pneumo Vac (Pneumovax): Yes (2006) Comments Regarding the Review Patient is comfort care. LY MARTINEZ Mar 15, 2018 18:31
[2018-03-15] MEDS: TOBRAMYCIN 0.3% OP SOLN 5 ML OD SCH ×2 (19:17→23:53)
[2018-03-15] MEDS: METOPROLOL SUCC XL 50 MG TABCR 50 MG TAB.ER.24H PO SCH (20:58)
[2018-03-16] MEDS: LORazepam 2 MG/ML VIAL IVP PRN ×2 (01:59→06:18)
[2018-03-16] MEDS: HYDROCORTISONE 100 MG/2 ML IVP SCH ×2 (05:09→17:00)
[2018-03-16] MEDS: SALMETEROL/FLUTIC 100/50 1 INH INH SCH ×2 (05:37→18:20)
[2018-03-16] MEDS: TOBRAMYCIN 0.3% OP SOLN 5 ML OD SCH ×5 (08:00→23:51)
[2018-03-16] MEDS: MORPHINE 2 MG/ML SYR IVP PRN ×4 (08:56→22:19)
[2018-03-16] MEDS: NYSTATIN 5 ML UDCUP PO SCH ×4 (09:00→21:00)
[2018-03-16] MEDS: METOPROLOL SUCC XL 50 MG TABCR 50 MG TAB.ER.24H PO SCH ×2 (09:00→21:00)
--- NOTE | 2018-03-16 13:43 | Medical Nutrition Therapy ---
Nutrition Anthropometrics Height (Inches): 65.00 Height (Calculated Centimeters: 165.030127 Weight (Pounds): 94 Weight (Calculated Kilograms): 42.638 Js Nutrition Score: Js Nutrition Risk Score: Dietary Referral Nutrition Risk Factors: Diff. Swallowing Nutrition Risk Comment: is on a mechanical soft diet Physical Findings Physical Appearance: Underweight BMI<19 Skin Appearance Skin Appearance: Edema Edema Location Modifier: Both Edema Location: Foot Type of Edema: Degree of Edema: 1+ Gastrointestinal Symptoms GI Symtoms: Tube Present: Bowel Sounds: Recent Bowel Pattern: Colostomy Stool Characteristics: Liquid, Green Nutritional Diagnosis Nutritional Risk Acuity 1: Malnutrition (per nutrtion physical assessment) Nutritional Risk Acuity 2: Swallowing Problem, Ileostomy Nutritional Risk Acuity 3: Fx & > [address] yrs, [address] I/II Pressure Ulcer Past Medical History: low BMI, COPD, PVD, CAD s/p CABG, GERD, Ischemic Colitis s/p Ileostomy, current smoker, bioprosthetic mitral valve and atrial fibrillation, HTN, low BMI, Raynaud disease Nutrition Diagnosis: Inadequate Food Intake Nutrition Etiology: End of Life Care Nutrition Problem/Etiology/Sym: Inadequate intake r/.t end of life care AEB pt refusing meals. Energy Requirement: 1530 (M- St Jeor X 1.3 SF) Protein Requirement: 55 (1/3 gm/kg) Fluid Requirement: 63 (1.5 gm/kg r.t/t pressure area) Nutrition Monitoring & Eval Nutritional Goals Comment: Pt will consume food and fluids and appropriate for comfort care. RD Assessment Type: RD Assessment Patient Nutrition Acuity: 1-High Nutritional Comment: Pt admitted for comfort care. Pt is underwt and has malnutrition per nutrition physical assessment. Pt has recent aspiration pneumonia and is on [facility] soft diet. Pt currently has not consumed a meal in ECF. Will cont to offer and provide food and fluids as pt desires and as is appropriate for comfort care. MARYELLEN MOE Mar 16, 2018 13:43
[2018-03-16] MEDS ORDERED: SCOPOLAMINE 1.5 MG PATCH TD PRN (14:05)
[2018-03-16] MEDS: [UNRECOGNIZED DRUG - OTHER] INH PRN (18:17)
[2018-03-16] MEDS: ALBUTEROL/IPRATROPIUM 3 ML NEB NEB PRN (18:17)
[2018-03-17] MEDS: HYDROCORTISONE 100 MG/2 ML IVP SCH ×2 (05:23→16:53)
[2018-03-17] MEDS: SALMETEROL/FLUTIC 100/50 1 INH INH SCH ×2 (05:38→18:11)
[2018-03-17] MEDS: TOBRAMYCIN 0.3% OP SOLN 5 ML OD SCH ×4 (10:39→20:00)
[2018-03-17] MEDS: NYSTATIN 5 ML UDCUP PO SCH ×4 (10:39→20:56)
[2018-03-17 10:50] VITALS: BP 151/58
[2018-03-17] MEDS: METOPROLOL SUCC XL 50 MG TABCR 50 MG TAB.ER.24H PO SCH ×2 (11:07→20:56)
--- NOTE | 2018-03-17 12:23 | Medical Nutrition Therapy ---
Nutrition Monitoring & Eval RD Assessment Type: RD Assessment Patient Nutrition Acuity: 1-High Follow Up Date: Mar 22, 2018 Nutritional Comment: Pt admitted for comfort care. Pt is underwt and has malnutrition per nutrition physical assessment. Pt has recent aspiration pneumonia and is on [facility] soft diet. Pt currently has not consumed a meal in ECF. Will cont to offer and provide food and fluids as pt desires and as is appropriate for comfort care. MARYELLEN MOE Mar 17, 2018 12:23
[2018-03-17] MEDS ORDERED: ENOXAPARIN 30 MG/0.3 ML SYR SC SCH (14:05)
--- NOTE | 2018-03-17 14:21 | Miscellaneous Provider Note ---
Miscellaneous Provider Note Note The patient is more alert and interactive. She is getting up with assistance. She wants to finish a full course of antibiotics and get back on her usual medications. Will restart warfarin for stroke prophylaxis for atrial fibrillation and bridge with Lovenox 30mg a day, restart ASA/simvastatin for secondary prevention of ME, and restart Protonix for GERD. Will restart abx, but orally with Augmentin for 3 days to a finish a 10 day course for aspiration pneumonia. The patient was on scheduled Lasix for edema, but will continue to hold for now until potassium comes back. CMP/INR/CBC tomorrow, then INR q48 hours. OT/PT/ST will be ordered. The patient has reported to staff that she is a DNR/DNI. Vital Signs Label Value Date Time Pulse 65 03/17/18 1108 Location Right Finger Blood Pressure Assessment 151/58 (89) 03/17/18 1050 Bedside Pulse Oximetry 91 % 03/17/18 1050 Item Value Date Time Oxygen Flow Rate 5.0 03/17/18 1050 Oxygen Flow Rate Units of Measure Liters 03/17/18 1050 LEONEL TREVINO MD Mar 17, 2018 14:21
[2018-03-17] MEDS: AMOX/CLAV 875 MG TAB PO SCH (16:52)
[2018-03-17] MEDS: ALBUTEROL/IPRATROPIUM 3 ML NEB NEB PRN (18:11)
[2018-03-17] MEDS: [UNRECOGNIZED DRUG - OTHER] INH PRN (18:11)
[2018-03-17] MEDS: SIMVASTATIN 20 MG TAB PO SCH (20:56)
[2018-03-17 21:23] VITALS: BP 150/60
[2018-03-18] MEDS: [UNRECOGNIZED DRUG - OTHER] INH PRN ×2 (05:14→17:14)
[2018-03-18] MEDS: ALBUTEROL/IPRATROPIUM 3 ML NEB NEB PRN ×2 (05:14→17:14)
[2018-03-18] MEDS: SALMETEROL/FLUTIC 100/50 1 INH INH SCH ×2 (05:15→17:14)
[2018-03-18] MEDS: HYDROCORTISONE 100 MG/2 ML IVP SCH ×2 (05:25→17:04)
[2018-03-18 06:22] LABS: PLATELET COUNT, AUTOMATED 316 K/uL (150-450)
[2018-03-18 06:30] LABS: INR 1.22
[2018-03-18 07:42] VITALS: BP 155/63
[2018-03-18] MEDS ORDERED: WARF5TAB23 PO (07:51)
[2018-03-18] MEDS ORDERED: METO100T20 PO (07:51)
[2018-03-18] MEDS: ENOXAPARIN 30 MG/0.3 ML SYR SC SCH (08:29)
[2018-03-18] MEDS: NYSTATIN 5 ML UDCUP PO SCH ×4 (08:29→20:16)
[2018-03-18] MEDS: TOBRAMYCIN 0.3% OP SOLN 5 ML OD SCH ×5 (08:29→19:43)
[2018-03-18] MEDS: ASPIRIN 81 MG ENTERIC COATED PO SCH (08:30)
[2018-03-18] MEDS: METOPROLOL SUCC XL 50 MG TABCR 50 MG TAB.ER.24H PO SCH ×2 (08:30→20:16)
[2018-03-18] MEDS: AMOX/CLAV 875 MG TAB PO SCH ×2 (08:30→17:03)
[2018-03-18] MEDS: PANTOPRAZOLE SOD 40 MG TABEC PO SCH (08:30)
--- NOTE | 2018-03-18 11:00 | SWALLOW EVALUATION ---
DYSPHAGIA EVALUATION Clinician: Vicky Emmanuel MS, CCC-[employer] SERVICE REP Type of Assessment: Dysphagia Evaluation Patient: Adelina Ballesteros : 1935, 82yrs Evaluation Date: 03/18/2018 BACKGROUND The patient is an 82 year old female admitted to [facility] following tx in ICU d/t pneumonia. In ICU she was placed on pureed diet with thin liquids primally d/ t mental status and fatigue. Mental status has since improved and ST will re- eval for diet upgrade recommendation Sialorrhea: No Xerostomia: No Supplemental Oxygen Use: No Oxygen Saturation: 98%. Remains stable across entirety of PO trials Respiratory Rate: Remains stable throughout food/liquid trials COPD Dx: No Pain with Swallow: Denies Oral Structure and Function: WFL. Top and bottom dentures were in place for PO trials. Patient able to elicit strong protective cough when cued Administered PO trials of thin liquids via straw. Pureed solids, mech soft solids, and regular solids trialed. Pt self feeds. Oral phase: WNL Phayrngeal Stage : WNL Respiratory/Swallow Coordination: WFL ST ASSESSMENT SUMMARY DYSPHAGIA Pt presents with swallow mechanism WFL. D/t hx of pneumonia it is recommended an MBS be performed to rule out acute aspiration. Speech Therapy Need Instrumental assessment of swallow: MBS RECOMMENDATIONS 1. Diet Modification: LAURA, thin liquids 2. Modified Barium Swallow PLAN OF CARE To be established as indicated by results of MBS Thank you for this referral. Vicky Emmanuel M.S., [employer] REP Speech Therapist [facility]
--- NOTE | 2018-03-18 13:26 | OT ECF NOTE ---
Type of Note: Initial Note Primary Medical Diagnosis: Generalized weakness *C-Collar to be donned at all times secondary to C1 fracture* Occupational Therapy Evaluation Date: 03/18/18 SUBJECTIVE: Prior Hospitalization: [facility] 03/04/18 thru 03/15/18. Comfort care 03/15/18 thru . Previous hospital admission 02/10/18 thru 02/14/18. Prior Level of Function: Family assisted with all ADLs/IADLs. Daughter-in- law resides next door and is present for all transfers/mobility/ADLs. Prior Living Status: Multilevel house Living with family Assist by family Community Services: [facility] Home health care No known needs Home Accessibility: One step into home All needs on one level Walk-in shower Tub/shower combination Equipment Owned: Front wheeled walker Toilet riser Extended tub bench Medical Complications/Past Medical History: Please refer to EMR Psychosocial Support: Supportive family Pain Scale (0-10): No pain reported at time of evaluation OBJECTIVE: Strength: MMT: Right Left Shoulder Flexion [*] [*] Elbow Flexion [*] [*] Wrist Extension [*] [*] [place] Support Worker [*] [*] (5= normal, 4= good, 3= fair, 2= poor, 1= trace) ROM: Both upper extremities, Moderately limited Functional Transfer: Assistive Device: Front wheeled walker, Gait belt Transfer Ability: Moderate assistance, Maximum assistance 2-person assist. SIt<>stand and 1 step forward/backward. Recommend EZ lift for nursing at this time. ADL: Upper body dressing: Assistive device: Upper body dressing ability: N/T Lower body dressing: Assistive device: Lower body dressing ability: N/T Toileting: Assistive device: Toileting ability: N/T Grooming/hygiene: Assistive device: Grooming ability: N/T Bathing: Assistive device: Bathing ability: N/T Standardized Assessment: Dougie Index of Activities of Daily Livin/20 upon initial evaluation (). ASSESSMENT: [facility]p [facility] admission requiring intubation. She became more alert and elected to pursue medication and rehabilitation. Pt is no longer on comfort care and requires extensive assist for ADLs s/p hospital progression and subsequent weakness. She will benefit from skilled OT services to optimize independence with ADLs and improve activity tolerance prior to discharge home with assist from family. Problem List/Current Limitations: Decreased activity tolerance Decreased strength Decreased balance Generalized weakness Short Term Goals: 1) Pt will be CGA UB/LB dressing. 2) Pt will be CGA grooming/hygiene. 3) Pt will be CGA toilet task. 4) Pt will be Min A shower task. 5) Pt Dougie Index of ADLs score will improve by 2 points. Mcc Goals: Return home with HH and continued assist from family Patient Goals: Return home Rehabilitation Prognosis: Good Barriers to Discharge: Medical history PLAN: The patient will benefit from skilled occupational therapy services 5 times per week for 2 weeks including: Ther ex ADL training Safety training Ther act IADL training Transfer training Adaptive equip training Bed mobility Energy conservation Thank you for this referral. If you have any questions, concerns, or comments about this report or plan, please contact me at . Anna German MS, OTR/L Occupational Therapist [facility]
[2018-03-18] MEDS: WARFARIN SOD 2.5 MG TAB PO SCH (13:59)
[2018-03-18 16:20] VITALS: BP 152/65
[2018-03-18] MEDS: SIMVASTATIN 20 MG TAB PO SCH (20:16)
[2018-03-19] MEDS: [UNRECOGNIZED DRUG - OTHER] INH PRN ×2 (05:16→18:09)
[2018-03-19] MEDS: ALBUTEROL/IPRATROPIUM 3 ML NEB NEB PRN ×2 (05:16→18:08)
[2018-03-19] MEDS: HYDROCORTISONE 100 MG/2 ML IVP SCH ×2 (05:39→16:51)
[2018-03-19] MEDS: SALMETEROL/FLUTIC 100/50 1 INH INH SCH ×2 (06:00→18:30)
[2018-03-19 08:00] VITALS: BP 114/85
[2018-03-19] MEDS: TOBRAMYCIN 0.3% OP SOLN 5 ML OD SCH ×5 (08:18→19:47)
[2018-03-19] MEDS: PANTOPRAZOLE SOD 40 MG TABEC PO SCH (08:19)
[2018-03-19] MEDS: POTASSIUM CHL 10 MEQ TABCR PO SCH ×3 (08:19→16:51)
[2018-03-19] MEDS: ENOXAPARIN 30 MG/0.3 ML SYR SC SCH (08:19)
[2018-03-19] MEDS: ASPIRIN 81 MG ENTERIC COATED PO SCH (08:19)
[2018-03-19] MEDS: AMOX/CLAV 875 MG TAB PO SCH ×2 (08:22→16:51)
[2018-03-19] MEDS: ACETAMINOPHEN 325 MG TAB PO PRN ×2 (08:28→19:47)
[2018-03-19] MEDS: NYSTATIN 5 ML UDCUP PO SCH ×4 (08:30→20:49)
[2018-03-19] MEDS: METOPROLOL SUCC XL 50 MG TABCR 50 MG TAB.ER.24H PO SCH ×2 (09:00→20:50)
[2018-03-19] MEDS: WARFARIN SOD 2.5 MG TAB PO SCH (13:43)
[2018-03-19] MEDS ORDERED: PATCH REMOVAL 1 EA TP ONE (14:35)
[2018-03-19 15:32] VITALS: BP 145/67
[2018-03-19] MEDS: SIMVASTATIN 20 MG TAB PO SCH (20:50)
[2018-03-20] MEDS: ALBUTEROL/IPRATROPIUM 3 ML NEB NEB PRN ×2 (05:13→17:01)
[2018-03-20] MEDS: SALMETEROL/FLUTIC 100/50 1 INH INH SCH ×2 (05:13→17:01)
[2018-03-20] MEDS: [UNRECOGNIZED DRUG - OTHER] INH PRN ×2 (05:14→17:01)
[2018-03-20] MEDS: HYDROCORTISONE 100 MG/2 ML IVP SCH ×2 (05:34→16:50)
[2018-03-20 06:16] LABS: INR 1.16
[2018-03-20 07:53] VITALS: BP 132/63
[2018-03-20] MEDS: ASPIRIN 81 MG ENTERIC COATED PO SCH (08:40)
[2018-03-20] MEDS: ENOXAPARIN 30 MG/0.3 ML SYR SC SCH (08:40)
[2018-03-20] MEDS: PANTOPRAZOLE SOD 40 MG TABEC PO SCH (08:40)
[2018-03-20] MEDS: TOBRAMYCIN 0.3% OP SOLN 5 ML OD SCH ×5 (08:40→20:24)
[2018-03-20] MEDS: AMOX/CLAV 875 MG TAB PO SCH (08:40)
[2018-03-20] MEDS: POTASSIUM CHL 10 MEQ TABCR PO SCH ×3 (08:40→16:50)
[2018-03-20] MEDS: NYSTATIN 5 ML UDCUP PO SCH ×4 (08:40→20:24)
[2018-03-20] MEDS: METOPROLOL SUCC XL 50 MG TABCR 50 MG TAB.ER.24H PO SCH ×2 (09:00→20:24)
[2018-03-20] MEDS: WARFARIN SOD 2.5 MG TAB PO SCH (13:32)
[2018-03-20 15:48] VITALS: BP 121/67
[2018-03-20] MEDS: ACETAMINOPHEN 325 MG TAB PO PRN (15:50)
[2018-03-20 20:05] VITALS: BP 126/36
[2018-03-20] MEDS: SIMVASTATIN 20 MG TAB PO SCH (20:24)
[2018-03-21] MEDS: ACETAMINOPHEN 325 MG TAB PO PRN ×3 (03:14→16:03)
[2018-03-21] MEDS: HYDROCORTISONE 100 MG/2 ML IVP SCH ×2 (05:33→17:20)
[2018-03-21 08:05] VITALS: BP 167/61
[2018-03-21] MEDS: TOBRAMYCIN 0.3% OP SOLN 5 ML OD SCH ×6 (08:15→23:33)
[2018-03-21] MEDS: ENOXAPARIN 30 MG/0.3 ML SYR SC SCH (09:40)
[2018-03-21] MEDS: METOPROLOL SUCC XL 50 MG TABCR 50 MG TAB.ER.24H PO SCH ×2 (09:40→20:33)
[2018-03-21] MEDS: POTASSIUM CHL 10 MEQ TABCR PO SCH ×3 (09:40→17:20)
[2018-03-21] MEDS: ASPIRIN 81 MG ENTERIC COATED PO SCH (09:40)
[2018-03-21] MEDS: NYSTATIN 5 ML UDCUP PO SCH ×4 (09:40→20:32)
[2018-03-21] MEDS: PANTOPRAZOLE SOD 40 MG TABEC PO SCH (09:40)
[2018-03-21] MEDS: SALMETEROL/FLUTIC 100/50 1 INH INH SCH ×2 (11:12→17:15)
[2018-03-21] MEDS: WARFARIN SOD 2.5 MG TAB PO SCH (13:15)
[2018-03-21 15:50] VITALS: BP 127/66
[2018-03-21] MEDS: [UNRECOGNIZED DRUG - OTHER] INH PRN (17:15)
[2018-03-21] MEDS: ALBUTEROL/IPRATROPIUM 3 ML NEB NEB PRN (17:15)
[2018-03-21] MEDS: SALINE 0.65% NAS SPR 44 ML BTL PRN (20:05)
[2018-03-21 20:15] VITALS: BP 125/67
[2018-03-21] MEDS: SIMVASTATIN 20 MG TAB PO SCH (20:32)
[2018-03-22] MEDS: SALINE 0.65% NAS SPR 44 ML BTL PRN (00:16)
[2018-03-22] MEDS: ALBUTEROL/IPRATROPIUM 3 ML NEB NEB PRN ×2 (00:21→17:16)
[2018-03-22] MEDS: HYDROCORTISONE 100 MG/2 ML IVP SCH ×2 (05:17→17:28)
[2018-03-22] MEDS: SALMETEROL/FLUTIC 100/50 1 INH INH SCH ×2 (05:24→17:17)
[2018-03-22 06:08] LABS: INR 1.25
[2018-03-22 07:30] VITALS: BP 136/76
[2018-03-22] MEDS: METOPROLOL SUCC XL 50 MG TABCR 50 MG TAB.ER.24H PO SCH ×2 (08:29→20:45)
[2018-03-22] MEDS: TOBRAMYCIN 0.3% OP SOLN 5 ML OD SCH ×4 (08:38→20:00)
[2018-03-22] MEDS: ACETAMINOPHEN 325 MG TAB PO PRN ×2 (08:38→15:42)
[2018-03-22] MEDS: POTASSIUM CHL 10 MEQ TABCR PO SCH ×3 (08:38→17:28)
[2018-03-22] MEDS: ASPIRIN 81 MG ENTERIC COATED PO SCH (08:38)
[2018-03-22] MEDS: PANTOPRAZOLE SOD 40 MG TABEC PO SCH (08:39)
[2018-03-22] MEDS: NYSTATIN 5 ML UDCUP PO SCH ×4 (08:39→20:45)
[2018-03-22] MEDS: ENOXAPARIN 30 MG/0.3 ML SYR SC SCH (08:39)
--- NOTE | 2018-03-22 09:31 | Medical Nutrition Therapy ---
Nutrition Anthropometrics Height (Inches): 65.00 Height (Calculated Centimeters: 165.450539 Weight (Pounds): 94 Weight (Calculated Kilograms): 42.638 BMI: 15.6 Js Nutrition Score: Js Nutrition Risk Score: Dietary Referral Nutrition Risk Factors: Diff. Swallowing Nutrition Risk Comment: is on a mechanical soft diet Physical Findings Physical Appearance: Underweight BMI<19 (15.6) Skin Appearance Skin Appearance: Edema Edema Location Modifier: Both Edema Location: Foot Type of Edema: Degree of Edema: 1+ Gastrointestinal Symptoms GI Symtoms: Tube Present: Bowel Sounds: Recent Bowel Pattern: Colostomy Stool Characteristics: Liquid, Green Nutritional Diagnosis Nutritional Risk Acuity 1: Malnutrition (per nutrtion physical assessment) Nutritional Risk Acuity 2: Swallowing Problem, Ileostomy Nutritional Risk Acuity 3: Fx & > [address]rs, [address] I/II Pressure Ulcer Past Medical History: low BMI, COPD, PVD, CAD s/p CABG, GERD, Ischemic Colitis s/p Ileostomy, current smoker, bioprosthetic mitral valve and atrial fibrillation, HTN, low BMI, Raynaud disease Nutrition Diagnosis: Under-weight Nutrition Etiology: Physiological Causes Nutrition Problem/Etiology/Sym: Underwt r/t inability to consume adeuqate kcal to meet nutr needs AEB BMI of 15.6 with average intake 46% of small portions. Energy Requirement: 1530 (M- St Jeor X 1.3 SF) Protein Requirement: 55 (1/3 gm/kg) Fluid Requirement: 63 (1.5 gm/kg r.t/t pressure area) Diet Type: Diet as Tolerated LAURA/REG Nutrition Intervention: Cont diet as ordered, Encourage intake, Between meal supplement Food Likes: high protien ensure,yougert Additional Diet Restrictions: OFFER NUTR SUPPLEMENT, PUT PROTEIN POWDER IN APPROPRIATE FOODS Nutrition Monitoring & Eval Nutrition Goals: Eat 50-100% Meal Nutrition Follow-Up: Fair Intake, Poor Intake RD Patient Assessment Time: [address] Assessment Type: RD Assessment Patient Nutrition Acuity: 1-High Follow Up Date: Mar 29, 2018 Nutritional Comment: Pt admitted for comfort care. Pt is underwt and has malnutrition per nutrition physical assessment. Pt has recent aspiration pneumonia and is on [facility] soft diet. Pt currently has not consumed a meal in ECF. Will cont to offer and provide food and fluids as pt desires and as is appropriate for comfort care. BK 03/22 Pt no longer on comfort care. St zacher[facility] recommended LAURA with thin liquids. Pt cont very underwt with 5# wt loss from admission to medical floor. Pt's nutrtional physical assessment indicated malnutrition with muscle wasting. Intake ave 45% of small portion past 3 days. Alb 2.6 on 03/18. Will offer nutr supplment and put protein powder in foods. MARYELLEN EAST Mar 21, 2018 11:21
[2018-03-22] MEDS: WARFARIN SOD 2.5 MG TAB PO SCH (12:59)
[2018-03-22 16:25] VITALS: BP 138/61
--- NOTE | 2018-03-22 16:43 | SLP MODIFIED BARIUM SWALLOW ---
Speech Language Pathology Modified Barium Swallow Evaluation Report Date of Evaluation: 03/22/2018 Patient Name: Adelina Ballesteros Patient : 1935, 83 yrs Clinician: Michelle German M.S., [facility] [employer] BACKGROUND The patient is an 83 yo female who presented to the ED on 03/04/18 with shortness of breath, cough, and decreased sodium levels. CXR illustrated bilateral pleural effusions. Clinical bedside swallow assessment was completed on 03/09/18 to analyze aspiration risk. MBSS was immediately recommended for to objectively analyze oropharyngeal anatomy/physiology due to observation of overt s/sx of aspiration and concern for aspiration pneumonia. It was also recommended that the pt be downgraded to a dysphagia III diet to compensate for oral phase impairments. Pt experienced an aspiration event with significantly increased O2 needs, and was intubated the next morning prior to participation in scheduled MBSS. Pt is now extubated and appropriate for re-attempt at MBSS completion. Oxygen Supplementation: 4.0 L via NC Level of Consciousness: non-altered Cognition: mild deficits. See initial [employer] report. Language: WFL Speech: WFL Voice: Breathy, decreased volume. Non-verbal Oral Structure and Function: edentulism (dentures in place), decreased labial seal, mildly decreased coordination, speed, and strength of oral musculature. Pain with Swallow: denies Current Diet: Dysphagia III, thin liquids Pre-Study LIOR: 5 MODIFIED BARIUM SWALLOW In conjunction with radiology, lateral view with trials of the following consistencies: 7.5 and 15 ml of thin liquid, thins via self-serve cup sip, thins via straw, pureed solids, mechanically soft solids, mixed consistencies, regular solids, and a 1cm barium pill. * Indicates impairment ORAL PHASE moderate impairments *Lip Closure: escape beyond mid-chin (thin liquids only, via straw) *Tongue Control during Bolus Hold: premature posterior loss of bolus with thin liquids *Bolus preparation and mastication: substantially prolonged mastication with soft and hard solids *Bolus transport/Lingual motion: adequate stripping wave with liquids. Delayed propulsion, effortful lingual pumping, and oral scatter observed with solid textures. *Oral Residue: Reside collection on oral lingual surface and base of tongue *Initiation of Pharyngeal Swallow: bolus head varying from the level of the valleculae to the level of the pyriforms prior to pharyngeal swallow initiation. PHARYNGEAL PHASE *Soft palate elevation: isolated instance of pureed material attempting to enter nasopharynx. WFL during all other attempts Laryngeal elevation: WNL - Complete superior movement of thyroid cartilage with complete approximation of arytneoids to epiglottis Anterior hyo-laryngeal excursion: WNL - Complete anterior movement Epiglottic inversion: WNL - Complete inversion Laryngeal Vestibule Closure (LVC): WNL Complete closure; no air/contrast in laryngeal vestibule *Pharyngeal stripping wave: diminished UES opening: WNL; no obstruction of flow *Tongue base retraction: large column of contrast between tongue base and posterior pharyngeal wall *Pharyngeal residue: Residue collection on base of tongue (mild to moderate), in valleculae (moderate), and on posterior pharyngeal wall (mild). ESOPHAGEAL STAGE Esophageal Clearance: impaired. Suspected stricture observed in distal esophagus with administration of barium pill. Unable to determine if pill to cleared from esophagus to stomach. Of note , pt underwent an esophagram in 2013 with findings significant for small hiatal hernia and massive gastroesophageal reflux. Repeat esophagram may be warranted. Patients oral phase is characterized by decreased labial seal and intraoral pressure with anterior loss of thin liquids with spillage consistently past mid chin during sips via straw. Patient compensates with reported avoidance of straws, and exhibited a habitual bolus holding pattern prior to execution of a- p transit. Despite oral holding, premature posterior loss of thin liquids was observed with large quantities (>7.5ml) of thins. Patient also exhibited mild lingual weakness resulting in prolonged A-P transit and lingual pumping with solid textures, with mild lingual residue post-swallow. Mastication was notably prolonged, uncoordinated, and effortful with oral scatter observed during trials of soft and hard solid consistencies. Initiation of the pharyngeal swallow was characterized by spillage of liquid contents over the base of tongue , pooling in the valleculae, and spillage over the epiglottis and into the pyriform sinus prior to swallow execution. With solid textures, the bolus head reached the valleculae prior to swallow initiation. Although complete closure of the laryngeal vestibule was achieved, delayed swallow onset resulted in shallow penetration during the swallow with large cup sip of thin liquids, thin liquids via straw, and thin liquids during pill administration (PAS 2). The patients decreased tongue base retraction resulted in vallecular residue (all consistencies) with increasing severity correlating to the size of the bolus. The patient was unaware of residue despite observation of >50% of material remaining in the vallecular space. Cued execution of double swallow and provision of liquid wash effectively cleared material across attempts. No penetration or aspiration noted with nectar-thick liquid, puree, soft solids, mixed textures, or jeff cracker. Penetration/Aspiration Scale (PAS)*: Thin liquids : Score of 2, contrast enters airway, remains above the vocal folds , and is ejected from airway. All other consistencies: Score of 1, contrast does not enter airway. *(Chocok et al. 1996) SUMMARY and RECOMMENDATIONS Post-Study LIOR: 4 Aspiration Risk: mild to moderately elevated risk 2/2 delayed initiation of pharyngeal swallow, decreased base of tongue retraction, pharyngeal residue with lack of sensation, known history of esophageal dysphagia/reflux, and history of respiratory compromise/pneumonia. The patient will benefit from intermittent supervision to ensure adherence to/recall of safe swallow strategies and diet modification recommendations. Recommended Diet: Dysphagia III Recommended Liquids: Thin Liquid Recommended form of Medications: whole, one at a time, with thin liquids Compensatory Strategies: double swallow, small bites/sips, one bite/sip at a time, alternate liquids/solids, avoid straws Referrals: Esophagram, continued ST services following d/c from [facility] Speech Therapy: Frequency per week: 2x Prognosis for Improvement: fair Short Term Goals: 1. Pt will execute compensatory swallow strategies (small bites/sips, one bite/ sip at a time, double swallow, alternate bites/sips) with min verbal cues and access to external visual aides during mealtime activities. 2. Pt will safely tolerate mechanically soft solids and thin liquids with no overt s/sx of aspiration during 100% of attempts with min verbal cues. 3. Pt will execute oral and pharyngeal exercise program as trained with min verbal/visual cues. Snf Goals: Pt will safely and independently consume least restrictive diet with execution of trained strategies during mealtime activities when provided access to external visual cues. Thank you for this referral. Please call [phone] to contact the [employer]. Michelle German M.S., [facility] [employer] Physician Signature Date [*] MTDD
[2018-03-22] MEDS: [UNRECOGNIZED DRUG - OTHER] INH PRN (17:17)
--- NOTE | 2018-03-22 17:43 | RADIOLOGY IMAGING REPORT ---
FACILITY: [facility] PATIENT NAME: Adelina Ballesteros : 1935 MR: [id number] V: [id number] EXAM DATE: ORDERING PHYSICIAN: TIMO HICKEY TECHNOLOGIST: Location: [facility] Patient: Adelina Ballesteros : 1935 Visit/Account:[id number] Date of Sevice: 03/21/2018 Exam type: ESOPH VIDEO SWALLOWING History: Dysphagia Comparison: None. Findings: The modified barium swallow was performed by the speech pathologist. Fluoroscopic assistance was pro vided. Patient received various liquids and solids and a barium tablet. There was trace laryngeal p enetration with thin liquids and nectar consistency liquids. Incidentally noted was a distal narrowi ng of the esophagus. Please see the speech pathologist report for complete details. The fluoroscopy dose area product was 293.67 micro-Ocampo per meter squared IMPRESSION: 1. As above Report Dictated By: Eugenia Garcia MD at 03/22/2018 5:37 PM Report E-Signed By: Eugenia Garcia MD at 03/22/2018 5:39 PM WSN:[id number]
[2018-03-22] MEDS: SIMVASTATIN 20 MG TAB PO SCH (20:46)
[2018-03-23] MEDS: HYDROCORTISONE 100 MG/2 ML IVP SCH (05:15)
[2018-03-23] MEDS: SALMETEROL/FLUTIC 100/50 1 INH INH SCH ×2 (05:48→18:02)
[2018-03-23 07:34] LABS: PLATELET COUNT, AUTOMATED 230 K/uL (150-450)
[2018-03-23 08:00] VITALS: BP 155/70
[2018-03-23] MEDS: ASPIRIN 81 MG ENTERIC COATED PO SCH (08:35)
[2018-03-23] MEDS: METOPROLOL SUCC XL 50 MG TABCR 50 MG TAB.ER.24H PO SCH ×2 (08:35→20:17)
[2018-03-23] MEDS: PANTOPRAZOLE SOD 40 MG TABEC PO SCH (08:35)
[2018-03-23] MEDS: POTASSIUM CHL 10 MEQ TABCR PO SCH ×3 (08:35→17:00)
[2018-03-23] MEDS: ENOXAPARIN 30 MG/0.3 ML SYR SC SCH (08:35)
[2018-03-23] MEDS: TOBRAMYCIN 0.3% OP SOLN 5 ML OD SCH ×2 (08:35)
[2018-03-23] MEDS: NYSTATIN 5 ML UDCUP PO SCH (09:00)
[2018-03-23] MEDS: WARFARIN SOD 2.5 MG TAB PO SCH (12:56)
[2018-03-23] MEDS: ACETAMINOPHEN 325 MG TAB PO PRN (16:05)
[2018-03-23 16:10] VITALS: BP 131/61
[2018-03-23] MEDS: SIMVASTATIN 20 MG TAB PO SCH (20:17)
[2018-03-24] MEDS: SALMETEROL/FLUTIC 100/50 1 INH INH SCH ×2 (05:35→17:08)
[2018-03-24 06:48] LABS: INR 1.24
[2018-03-24 08:20] VITALS: BP 139/59
[2018-03-24] MEDS: ASPIRIN 81 MG ENTERIC COATED PO SCH (08:38)
[2018-03-24] MEDS: HYDROCORTISONE 100 MG/2 ML IVP SCH (08:39)
[2018-03-24] MEDS: POTASSIUM CHL 10 MEQ TABCR PO SCH ×3 (08:39→17:26)
[2018-03-24] MEDS: PANTOPRAZOLE SOD 40 MG TABEC PO SCH (08:39)
[2018-03-24] MEDS: ENOXAPARIN 30 MG/0.3 ML SYR SC SCH (08:40)
[2018-03-24] MEDS: METOPROLOL SUCC XL 50 MG TABCR 50 MG TAB.ER.24H PO SCH ×2 (09:00→20:19)
[2018-03-24] MEDS: ACETAMINOPHEN 325 MG TAB PO PRN (11:29)
[2018-03-24] MEDS: WARFARIN SOD 2.5 MG TAB PO SCH (13:22)
--- NOTE | 2018-03-24 16:49 | Medical Nutrition Therapy ---
Nutrition Anthropometrics Height (Inches): 65.00 Height (Calculated Centimeters: 165.935938 Weight (Pounds): 108 Weight (Calculated Kilograms): 48.994 BMI: 15.6 Js Nutrition Score: Js Nutrition Risk Score: Dietary Referral Nutrition Risk Factors: Diff. Swallowing Nutrition Risk Comment: is on a mechanical soft diet Nutritional Diagnosis Nutritional Risk Acuity 1: Malnutrition (per nutrtion physical assessment) Nutritional Risk Acuity 2: Swallowing Problem, Ileostomy Nutritional Risk Acuity 3: Fx & > [address] yrs, [address] I/II Pressure Ulcer Past Medical History: low BMI, COPD, PVD, CAD s/p CABG, GERD, Ischemic Colitis s/p Ileostomy, current smoker, bioprosthetic mitral valve and atrial fibrillation, HTN, low BMI, Raynaud disease Nutrition Diagnosis: Under-weight Nutrition Etiology: Physiological Causes Nutrition Problem/Etiology/Sym: Underwt r/t inability to consume adeuqate kcal to meet nutr needs AEB BMI of 15.6 with average intake 46% of small portions. Energy Requirement: 1530 (M- St Jeor X 1.3 SF) Protein Requirement: 55 (1/3 gm/kg) Fluid Requirement: 63 (1.5 gm/kg r.t/t pressure area) Diet Type: Diet as Tolerated LAURA/REG Nutrition Intervention: Cont diet as ordered, Encourage intake, Between meal supplement Food Likes: high protien ensure,yougert Additional Diet Restrictions: OFFER NUTR SUPPLEMENT, PUT PROTEIN POWDER IN APPROPRIATE FOODS Diet Comment To RSA: NO STRAWS Nutrition Monitoring & Eval RD Patient Assessment Time: [address] Assessment Type: RD Assessment Patient Nutrition Acuity: 1-High Follow Up Date: Mar 29, 2018 Nutritional Comment: Pt admitted for comfort care. Pt is underwt and has malnutrition per nutrition physical assessment. Pt has recent aspiration pneumonia and is on [facility] soft diet. Pt currently has not consumed a meal in ECF. Will cont to offer and provide food and fluids as pt desires and as is appropriate for comfort care. BK 03/22 Pt no longer on comfort care. St eval recommended LAURA with thin liquids. Pt cont very underwt with 5# wt loss from admission to medical floor. Pt's nutrtional physical assessment indicated malnutrition with muscle wasting. Intake ave 45% of small portion past 3 days. Alb 2.6 on 03/18. Will offer nutr supplment and put protein powder in foods. BK Per SPL, pt should not have straws with drinks. MARYELLEN MOE Mar 24, 2018 16:49
[2018-03-24 17:00] VITALS: BP 115/63
[2018-03-24] MEDS: ALBUTEROL/IPRATROPIUM 3 ML NEB NEB PRN (17:08)
[2018-03-24] MEDS: [UNRECOGNIZED DRUG - OTHER] INH PRN (17:08)
[2018-03-24] MEDS: SIMVASTATIN 20 MG TAB PO SCH (20:19)
[2018-03-25] MEDS: ALBUTEROL/IPRATROPIUM 3 ML NEB NEB PRN (05:43)
[2018-03-25] MEDS: [UNRECOGNIZED DRUG - OTHER] INH PRN (05:44)
[2018-03-25] MEDS: SALMETEROL/FLUTIC 100/50 1 INH INH SCH ×2 (05:44→18:03)
[2018-03-25 08:00] VITALS: BP 129/63
[2018-03-25] MEDS: ENOXAPARIN 30 MG/0.3 ML SYR SC SCH (08:27)
[2018-03-25] MEDS: POTASSIUM CHL 10 MEQ TABCR PO SCH ×3 (08:27→17:48)
[2018-03-25] MEDS: PANTOPRAZOLE SOD 40 MG TABEC PO SCH (08:27)
[2018-03-25] MEDS: ASPIRIN 81 MG ENTERIC COATED PO SCH (08:27)
[2018-03-25] MEDS: HYDROCORTISONE 100 MG/2 ML IVP SCH (08:28)
[2018-03-25] MEDS: METOPROLOL SUCC XL 50 MG TABCR 50 MG TAB.ER.24H PO SCH ×2 (09:00→20:54)
[2018-03-25] MEDS: SALINE 0.65% NAS SPR 44 ML BTL PRN (11:32)
[2018-03-25] MEDS: WARFARIN SOD 2.5 MG TAB PO SCH (13:25)
[2018-03-25 15:10] VITALS: BP 126/63
[2018-03-25] MEDS: ACETAMINOPHEN 325 MG TAB PO PRN ×3 (16:01→21:56)
[2018-03-25] MEDS: SIMVASTATIN 20 MG TAB PO SCH (20:55)
[2018-03-26] MEDS ORDERED: ONDANSETRON 4 MG ODT TABDP SL ONE (00:55)
[2018-03-26] MEDS ORDERED: MORPHINE 2 MG/ML SYR ONE (01:04)
[2018-03-26] MEDS ORDERED: ONDANSETRON 4 MG ODT TABDP SL PRN (01:05)
[2018-03-26] MEDS ORDERED: MORPHINE 10 MG/ML SYR IM PRN (01:05)
[2018-03-26 01:45] LABS: PLATELET COUNT, AUTOMATED 226 K/uL (150-450)
[2018-03-26] MEDS ORDERED: NS(*) 0.9% 500 ML BAG 500 ML IV PRN (01:45)
--- NOTE | 2018-03-26 03:45 | RADIOLOGY IMAGING REPORT ---
[place] [facility] [place]IENT NAME: Adelina Ballesteros : 1935 MR: [id number] V: [id number] EXAM DATE: ORDERING PHYSICIAN: SARAVANAN QUIROZ TECHNOLOGIST: Location: [facility] Patient: Adelina Ballesteros : 1935 Visit/Account:[id number] Date of Sevice: 03/26/2018 KUB SINGLE VIEW ABDOMEN HISTORY: Stomach distention. COMPARISON: 07/29/2017 and studies dating to 05/29/2010. FINDINGS: A single AP supine view of the abdomen was obtained. Distrubution of bowel gas is normal with bowel in all four quadrants as well as centrally. There are gas distended loops of bowel in the mid to lower abdomen. There is moderate stool in the rectal vault . No free air. There is a left trochanteric fixation nail. 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 There is severe degenerative change of the right hip. There are severe vascular ca lcifications. IMPRESSION: 1. Gas distended bowel loops in the mid to lower abdomen. At least some of the bowel loops appear to be small bowel, and findings could be due to ileus versus small bowel obstruction. There was a simila r appearance on the prior study. Report Dictated By: Brenda Mcgovern at 03/26/2018 3:38 AM Report E-Signed By: Brenda Mcgovern at 03/26/2018 3:42 AM WSN:[id number]
[2018-03-26] MEDS ORDERED: MORPHINE 2 MG/ML SYR IVP PRN ×3 (05:05→05:25)
[2018-03-26] MEDS: SALMETEROL/FLUTIC 100/50 1 INH INH SCH ×2 (05:51→17:27)
--- NOTE | 2018-03-26 06:22 | Miscellaneous Provider Note ---
Miscellaneous Provider Note Note S/O: Called to [facility] with report of increasing abdominal distension and patient "writhing in pain" after 300cc of liquid was expelled into ostomy bag. Staff unable to get BP on automated cuff and report patient without IV. Orders given including IM analgesia with morphine. On arrival patient appears uncomfortable, tachypneic, distended non rigid abdomen without guarding, small bore IV in L forearm. Respiratory rate decreased with analgesia onset and patient appeared more comfortable. When asked about pain reported that C spine was source now ( in C collar with known Fx). Imaging: KUB - unchanged from previous Labs - Hgb stable, no leukocytosis. Hyponatremia appears to have been slow onset , current 125. Manual pressure reported 140's/100's but faint, good pulses Plan: New order for PRN morphine, recommend using tonight and attempt to return to PO in AM. 500cc NS @250cc/hr, should improve hyponatremia. Pt PO intake reported to be decreased, suspect mild dehydration should also improve sodium. Recheck ordered for Wednesday. SARAVANAN GODINEZ DO Mar 26, 2018 06:22
[2018-03-26 06:58] LABS: INR 1.48
[2018-03-26 08:30] VITALS: BP 116/65
[2018-03-26] MEDS: METOPROLOL SUCC XL 50 MG TABCR 50 MG TAB.ER.24H PO SCH ×2 (09:00→21:00)
[2018-03-26] MEDS: FUROSEMIDE 20 MG TAB PO SCH (10:31)
[2018-03-26] MEDS: PANTOPRAZOLE SOD 40 MG TABEC PO SCH (10:31)
[2018-03-26] MEDS: ASPIRIN 81 MG ENTERIC COATED PO SCH (10:32)
[2018-03-26] MEDS: ENOXAPARIN 30 MG/0.3 ML SYR SC SCH (10:32)
[2018-03-26] MEDS: HYDROCORTISONE 100 MG/2 ML IVP SCH (10:33)
[2018-03-26] MEDS: POTASSIUM CHL 10 MEQ TABCR PO SCH ×3 (10:34→17:15)
[2018-03-26] MEDS: APAP/HYDROCODONE 325/5 TAB PO PRN ×2 (11:04→17:15)
[2018-03-26] MEDS: WARFARIN SOD 5 MG TAB PO SCH (13:13)
[2018-03-26 14:45] VITALS: BP 111/65
[2018-03-26] MEDS: ACETAMINOPHEN 325 MG TAB PO PRN (15:37)
[2018-03-26] MEDS: SIMVASTATIN 20 MG TAB PO SCH (21:12)
[2018-03-26] MEDS: MORPHINE 2 MG/ML SYR IVP PRN (21:13)
[2018-03-27] MEDS: SALMETEROL/FLUTIC 100/50 1 INH INH SCH ×2 (05:51→17:28)
[2018-03-27 08:00] VITALS: BP 112/64
[2018-03-27] MEDS: METOPROLOL SUCC XL 50 MG TABCR 50 MG TAB.ER.24H PO SCH ×2 (09:30→20:25)
[2018-03-27] MEDS: ENOXAPARIN 30 MG/0.3 ML SYR SC SCH (09:30)
[2018-03-27] MEDS: POTASSIUM CHL 10 MEQ TABCR PO SCH ×3 (09:30→18:20)
[2018-03-27] MEDS: ASPIRIN 81 MG ENTERIC COATED PO SCH (09:30)
[2018-03-27] MEDS: PANTOPRAZOLE SOD 40 MG TABEC PO SCH (09:30)
[2018-03-27] MEDS: FUROSEMIDE 20 MG TAB PO SCH (09:31)
[2018-03-27] MEDS ORDERED: SODIUM CHLORIDE 1 GR TAB PO SCH (10:50)
[2018-03-27] MEDS: APAP/HYDROCODONE 325/5 TAB PO PRN (12:47)
[2018-03-27] MEDS: WARFARIN SOD 5 MG TAB PO SCH (12:47)
[2018-03-27] MEDS: MORPHINE 2 MG/ML SYR IVP PRN ×4 (13:39→22:38)
[2018-03-27 15:44] VITALS: BP 101/52
[2018-03-27 17:00] LABS: PLATELET COUNT, AUTOMATED 154 K/uL (150-450)
--- NOTE | 2018-03-27 17:17 | RADIOLOGY IMAGING REPORT ---
FACILITY: [facility] PATIENT NAME: Adelina Ballesteros : 1935 MR: [id number] V: [id number] EXAM DATE: ORDERING PHYSICIAN: LY HICKEY TECHNOLOGIST: Location: [facility] Patient: Adelina Ballesteros : 1935 Visit/Account:[id number] Date of Sevice: 03/27/2018 Examination: CHEST SINGLE AP Comparison: 03/15/2018 and earlier. History: Elevated temperature. Findings: Cardiac and hilar contour is enlarged but unchanged. Sternotomy wires are midline. Pac[place] r as before. Small to moderate left pleural effusion has significantly decreased in volume in the interval. Persis tent left lower lung density is favored to be volume loss. Unchanged small right pleural effusion. Advanced chronic lung disease with interstitial thickening, reticular markings, and architectural dis tortion as before. No definite new consolidation is identified. No pneumothorax. Multifocal degenerative change with no acute osseous abnormality. IMPRESSION: 1. Small to moderate-sized left pleural effusion has significantly decreased in size since 03/15/2018. 2. Left lung base density is favored to be atelectasis, less likely consolidation. 3. Advanced chronic lung disease. No definite new or enlarging consolidation is identified but given the extensive chronic findings, a superimposed acute bronchopneumonia or aspiration pneumonitis canno t be entirely excluded. 4. Unchanged cardiac silhouette enlargement. Report Dictated By: Tao Acevedo MD at 03/27/2018 5:10 PM Report E-Signed By: Tao Acevedo MD at 03/27/2018 5:13 PM WSN:[id number]
[2018-03-27] MEDS: ACETAMINOPHEN 325 MG TAB PO PRN (17:43)
[2018-03-27] MEDS ORDERED: NOREPINE BITAR* 4 MG/4 ML AMP 4 MG in D5W(*) 250 ML BAG 246 ML IV PRN (18:10)
--- NOTE | 2018-03-27 18:24 | Hospitalist Progress Note ---
Subjective Progress Notes Subjective Late entry: Patient seen 03/23/18. The patient denies new complaints. Is sitting in the dining room waiting for lunch. Physical Exam Vital Signs Date Time Temp Pulse Resp B/P (MAP) Pulse Ox O2 Delivery O2 Flow Rate FiO2 03/27/18 17:10 103.6 03/27/18 15:44 64 22 101/52 (68) Nasal Cannula 5.0 03/27/18 08:00 89 Intake and Output 03/28/18 07:00 Intake Total 245 ml Output Total 660 ml Balance -415 ml Intake Oral 245 ml Output Urine Total 330 ml Stool Total 330 ml # Voids 2 # Bowel Movements 1 General Appearance: Alert, Awake, No Acute Distress, Afebrile Neuro: No Gross deficits Eyes: PERRLA Cardiovascular: Regular Rate and Rhythm Respiratory: Clear to Auscultation GI: Soft and Non-Tender Extremities: Warm, Perfused, Other (Trace edema, feet.) Integumentary: Generalized Fragile Skin Psych: Appropriate Mood & Affect Result Diagram: 03/27/18 1652 03/27/18 0618 Assessment and Plan Problems: (1) Aspiration pneumonia Status: Acute Assessment & Plan: The patient was initially transferred to [facility] for end of life care but improved. PT/OT were ordered. ST re-evaluated the patient and her diet has been modified. She was placed back on her chronic medications including warfarin for (a fib). (2) Acute respiratory failure with hypoxemia Status: Acute Assessment & Plan: The patient had a recurrent aspiration event on 03/10/18. She did require intubation and mechanical ventilation for a period of time but was then successfully extubated. (3) Rib fracture Status: Acute Assessment & Plan: L 10th rib. Due to fall. (4) Acute diastolic heart failure Status: Resolved Assessment & Plan: She did present with increased shortness of breath and her CXR showed worsening bilateral pleural effusions. An echo showed preserved EF. Her weight had increased about 10 Kg. Lasix was given but limited by hypokalemia. (5) Hyponatremia Status: Chronic Assessment & Plan: Recurrent. Her current levels were lower than usual. Improved with sodium tablets but these were stopped due to risk of aspiration. (6) Urine retention Status: Acute Assessment & Plan: Vides placed due to high post void residual and then removed. Monitoring. (7) Essential hypertension Status: Chronic Assessment & Plan: Placed back on metoprolol. (8) Atrial fibrillation Status: Chronic Assessment & Plan: She is on chronic treatment with metoprolol and warfarin. She has a pacemaker in place. Metoprolol and warfarin restarted. (9) Raynaud disease Status: Chronic Assessment & Plan: Chronic. She has significant findings in her right hand/ fingers. She was smoking up until admission. She has been on ASA and warfarin. (10) Hypokalemia Assessment & Plan: Improved with supplementation. (11) Severe malnutrition Status: Chronic Assessment & Plan: Dietary is following and giving recommendations. (12) Fracture of C1 vertebra, closed Status: Chronic Assessment & Plan: She recently suffered a [id number] and remains in a collar. This may be complicating her ability to swallow effectively. She is being followed by Dr. Navas as an outpatient. Central Venous Access Medical Necessity for Access: Hemodynamic Monitoring, IV Access, Medication Administration Time Spent on Plan of Care: < 30 min LY HICKEY MD Mar 27, 2018 18:24
[2018-03-27] MEDS ORDERED: ACETAMINOPHEN(*)1000 MG/100 ML 100 ML IVPB PRN (18:35)
--- NOTE | 2018-03-27 18:58 | Miscellaneous Provider Note ---
Miscellaneous Provider Note Note Called to see patient who is pale and confused. Lab shows hemoglobin has dropped from 10.4 to 7.5. Etiology is not entirely clear. Patient also with fever over 103 axillary. CXR actually improved. UA shows 4 WBCs but has moderate bacteria. Discussed with family and they have decided to transition her back to comfort care. Will not give fluids or antibiotics. Will order IV morphine for now. LY HICKEY MD Mar 27, 2018 18:58
[2018-03-27] MEDS: SIMVASTATIN 20 MG TAB PO SCH (20:25)
[2018-03-27] MEDS: LORazepam 2 MG/ML VIAL IVP PRN (20:59)
[2018-03-28] MEDS: MORPHINE 2 MG/ML SYR IVP PRN ×4 (04:10→21:54)
[2018-03-28] MEDS: LORazepam 2 MG/ML VIAL IVP PRN ×4 (04:24→21:53)
[2018-03-28 07:03] LABS: INR 2.34
[2018-03-28] MEDS: PANTOPRAZOLE SOD 40 MG TABEC PO SCH (08:44)
[2018-03-28] MEDS: METOPROLOL SUCC XL 50 MG TABCR 50 MG TAB.ER.24H PO SCH ×2 (08:44→21:00)
--- NOTE | 2018-03-28 10:49 | Medical Nutrition Therapy ---
Nutrition Anthropometrics Height (Inches): 65.00 Height (Calculated Centimeters: 165.491769 Weight (Pounds): 108 Weight (Calculated Kilograms): 48.994 BMI: 15.6 Js Nutrition Score: Js Nutrition Risk Score: Dietary Referral Nutrition Risk Factors: Diff. Swallowing Nutrition Risk Comment: is on a mechanical soft diet Physical Findings Physical Appearance: Underweight BMI<19 (15.6) Skin Appearance Skin Appearance: Edema Edema Location Modifier: Both Edema Location: Foot Type of Edema: Degree of Edema: 2+ Gastrointestinal Symptoms GI Symtoms: Tube Present: Bowel Sounds: Recent Bowel Pattern: Colostomy Stool Characteristics: Liquid, Green Nutritional Diagnosis Nutritional Risk Acuity 1: Malnutrition (per nutrtion physical assessment) Nutritional Risk Acuity 2: Swallowing Problem, Ileostomy Nutritional Risk Acuity 3: Fx & > [address] y[address], ST I/II Pressure Ulcer Past Medical History: low BMI, COPD, PVD, CAD s/p CABG, GERD, Ischemic Colitis s/p Ileostomy, current smoker, bioprosthetic mitral valve and atrial fibrillation, HTN, low BMI, Raynaud disease Nutritional Acuity: 1-High Nutrition Diagnosis: Under-weight Nutrition Etiology: Physiological Causes Nutrition Problem/Etiology/Sym: Underwt r/t inability to consume adeuqate kcal to meet nutr needs AEB BMI of 15.6 with average intake 46% of small portions. Energy Requirement: 1530 (M- St Jeor X 1.3 SF) Protein Requirement: 55 (1/3 gm/kg) Fluid Requirement: 63 (1.5 gm/kg r.t/t pressure area) Diet Type: Diet as Tolerated LAURA/REG Nutrition Intervention: Cont diet as ordered, Encourage intake, Between meal supplement Food Likes: high protien ensure,yougert Additional Diet Restrictions: COMFORT CARE Diet Comment To RSA: NO STRAWS Nutrition Monitoring & Eval Nutritional Goals Comment: 03/28Pt will consume foods and fluids as appropriate for comfort care RD Patient Assessment Time: [address] Assessment Type: RD Re-Assessment Patient Nutrition Acuity: 1-High Follow Up Date: Apr 05, 2018 Nutritional Comment: Pt admitted for comfort care. Pt is underwt and has malnutrition per nutrition physical assessment. Pt has recent aspiration pneumonia and is on [facility] soft diet. Pt currently has not consumed a meal in ECF. Will cont to offer and provide food and fluids as pt desires and as is appropriate for comfort care. BK 03/22 Pt no longer on comfort care. St eval recommended LAURA with thin liquids. Pt cont very underwt with 5# wt loss from admission to medical floor. Pt's nutrtional physical assessment indicated malnutrition with muscle wasting. Intake ave 45% of small portion past 3 days. Alb 2.6 on 03/18. Will offer nutr supplment and put protein powder in foods. KAMI 03/25 Per SPL, pt should not have straws with drinks. 03/27 Pt changed back to comfort care. Will provide food and fluids as pt desires for comfort care. MARYELLEN EAST Mar 28, 2018 10:49
--- NOTE | 2018-03-28 17:23 | OT ECF NOTE ---
Type of Note: Discharge Note Primary Medical Diagnosis: Generalized weakness *C-Collar to be donned at all times secondary to C1 fracture* Occupational Therapy Evaluation Date: 03/18/18 SUBJECTIVE: Prior Hospitalization: [facility] 03/04/18 thru 03/15/18. Comfort care 03/15/18 thru . Previous hospital admission 02/10/18 thru 02/14/18.Moved back to comfort care 03/28/18 Prior Level of Function: Family assisted with all ADLs/IADLs. Daughter-in- law resides next door and is present for all transfers/mobility/ADLs. Prior Living Status: Multilevel house Living with family Assist by family Community Services: [facility] No known needs Home Accessibility: One step into home All needs on one level Walk-in shower Tub/shower combination Equipment Owned: Front wheeled walker Toilet riser Extended tub bench Medical Complications/Past Medical History: Please refer to EMR Psychosocial Support: Supportive family Pain Scale (0-10): No pain reported at time of evaluation OBJECTIVE: Strength: MMT: Right Left Shoulder Flexion [*] [*] Elbow Flexion [*] [*] Wrist Extension [*] [*] Payroll Officer [*] [*] (5= normal, 4= good, 3= fair, 2= poor, 1= trace) ROM: Both upper extremities, Moderately limited Functional Transfer: Assistive Device: Front wheeled walker, Gait belt Transfer Ability: Moderate assistance, Maximum assistance 2-person assist. SIt<>stand and 1 step forward/backward. Recommend EZ lift for nursing at this time. ADL: Upper body dressing: Assistive device: Upper body dressing ability: N/T Lower body dressing: Assistive device: Lower body dressing ability: N/T Toileting: Assistive device: Toileting ability: N/T Grooming/hygiene: Assistive device: Grooming ability: N/T Bathing: Assistive device: Bathing ability: N/T Standardized Assessment: Dougie Index of Activities of Daily Livin/20 upon initial evaluation (). ASSESSMENT: Adelina initially presented [facility] for comfort care s/p hospital admission requiring intubation. She became more alert and elected to pursue medication and rehabilitation. Pt is no longer on comfort care and requires extensive assist for ADLs s/p hospital progression and subsequent weakness. She will benefit from skilled OT services to optimize independence with ADLs and improve activity tolerance prior to discharge home with assist from family. No assessment completed as patient transitioned back to comfort care Problem List/Current Limitations: Decreased activity tolerance Decreased strength Decreased balance Generalized weakness Short Term Goals: 1) Pt will be CGA UB/LB dressing. 2) Pt will be CGA grooming/hygiene. 3) Pt will be CGA toilet task. 4) Pt will be Min A shower task. 5) Pt Dougie Index of ADLs score will improve by 2 points. Credit Administration Manager Goals: Return home with HH and continued assist from family Patient Goals: Return home Rehabilitation Prognosis: Good Barriers to Discharge: Medical history PLAN: Discharge patient from OT services as patient has medically changed back to comfort care measures Thank you for this referral. If you have any questions, concerns, or comments about this report or plan, please contact me at . Vianey Yeager MS, OTR/L Occupational Therapist G[facility]
--- NOTE | 2018-03-28 19:17 | PT ECF NOTE ---
Type of Note: Initial Note Primary Medical Diagnosis: Generalized weakness *C-Collar to be donned at all times secondary to C1 fracture* Physical Therapy Evaluation Date: 03/18/18 SUBJECTIVE: Prior Hospitalization: [facility] 03/04/18 thru 03/15/18. Comfort care 03/15/18 thru . Previous hospital admission 02/10/18 thru 02/14/18. Prior Level of Function: Family assisted with all ADLs/IADLs. Daughter-in- law resides next door and is present for all transfers/mobility/ADLs. Prior Living Status: Multilevel house Living with family Assist by family [facility] No known needs Home Accessibility: One step into home All needs on one level Walk-in shower Tub/shower combination Equipment Owned: Front wheeled walker Toilet riser Extended tub bench Medical Complications/Past Medical History: Please refer to EMR Psychosocial Support: Supportive family Pain Scale (0-10): No pain reported at time of evaluation OBJECTIVE: Strength: B) LE's 3-/5 with functional mobility. Pt is able to lift against gravity but fatigues easily and is unable to ambulate safely at this time. ROM: (please note any abnormalities) B) LE's WFL overall Sensation: (please note any abnormalities) Pt denies any paresthesias Other Neuro findings: None noted; caution required with C-spine collar to be left in place at all times. Bed Mobility: Not tested with eval; pt up in chair at time of visit. Assistive device: Transfers: Moderate assistance; 2-person assist; Maximum assistance Assistive Device: Front wheeled walker; EZ lift as needed due to fluctuating needs. Gait: Pt able to take 2 steps forward and 2 steps backward, with Mod/Max assist due to retropulsive lean. Assistive device: FWW Stairs: Not tested Assistive device: Timed Up and Go (>12 seconds indicated increased risk for falls): Unable to ambulate this distance currently 10 meter walk test (0.6m/second cannot function independently): n/a Other Objective Measures: n/a ASSESSMENT: Pt was previously on comfort care measures but has since improved and requests to address functional mobility. Pt required 2 Person Mod/Max assist for sit to/from stand transfer and to ambulate forward and backward 2 steps. Pt remained fairly retropulsive throughout and was not safe to ambulate away from a safe surface. Will progress as able with further transfers and mobility as tolerated. Recommend staff to use EZ lift for transfers to conserve energy and for fluctuating levels of endurance. Problem List/Current Limitations: Decreased activity verónica, Decreased strength , Decreased balance, Generalized weakness Short Term Goals: 1. Pt to be Min assist of one for bed mobility and sit to/from supine transfers 2. Pt to be Min assist of one for sit to/from stand transfers 3. Pt to tolerate ambulation x 50' with least restrictive device and CGA. 4. Pt to tolerate up/down platform step with FWW and CGA/Min assist. Asian Art Curator Goals: Pt to discharge to least restrictive environment with supportive care givers. Patient Goals: Pt indicates that she would like to transfer home if possible Rehabilitation Prognosis: Fair Barriers for Discharge: Medical status may be a limiting factor; high risk for pressure ulcer with low BMI and decreased repositioning. PLAN: The patient will benefit from skilled physical therapy services 5 times per week for 2 weeks including: Therapeutic Exercise Therapeutic Activities, Transfer Training, Gait Training, Stair Training, ADL's , Safety Training, Pt/Caregiver Training, Bed Mobility Thank you for this referral. If you have any questions, concerns, or comments about this report or plan, please contact me at . h. Sharon Barcenas, PT, MPT MTDD
--- NOTE | 2018-03-28 19:26 | PT ECF NOTE ---
Type of Note: Discharge Note Primary Medical Diagnosis: Generalized weakness *C-Collar to be donned at all times secondary to C1 fracture* Physical Therapy Evaluation Date: 03/18/18 SUBJECTIVE: Prior Hospitalization: [facility] 03/04/18 thru 03/15/18. Comfort care 03/15/18 thru . Previous hospital admission 02/10/18 thru 02/14/18. Prior Level of Function: Family assisted with all ADLs/IADLs. Daughter-in- law resides next door and is present for all transfers/mobility/ADLs. Prior Living Status: Multilevel house Living with family Assist by family [facility] No known needs Home Accessibility: One step into home All needs on one level Walk-in shower Tub/shower combination Equipment Owned: Front wheeled walker Toilet riser Extended tub bench Medical Complications/Past Medical History: Please refer to EMR Psychosocial Support: Supportive family Pain Scale (0-10): No pain reported at time of evaluation OBJECTIVE: Strength: B) LE's 3/5 with functional mobility. Pt is able to lift against gravity but fatigues easily and now ambulates short distances safely. ROM: (please note any abnormalities) B) LE's WFL overall Sensation: (please note any abnormalities) Pt denies any paresthesias Other Neuro findings: None noted; caution required with C-spine collar to be left in place at all times. Bed Mobility: Nursing indicates increased assistance required since decline this weekend. Assistive device: Transfers: Moderate assistance; 2-person assist; Maximum assistance Assistive Device: EZ lift as needed due to fluctuating needs. Gait: Pt previously ambulated 30' from room to dining room with FWW and W/C follow, but recently has declined this weekend. Assistive device: FWW Stairs: Not tested Assistive device: Timed Up and Go (>12 seconds indicated increased risk for falls): Unable to ambulate this distance currently 10 meter walk test (0.6m/second cannot function independently): n/a Other Objective Measures: n/a ASSESSMENT: Pt had previously been on comfort measures, but then improved to justify therapy intervention over the past week. This weekend, however, pt did decline again and family has chosen to return to comfort measures. Problem List/Current Limitations: Decreased activity verónica, Decreased strength , Decreased balance, Generalized weakness Short Term Goals: (No longer to be addressed per family request for comfort measures) 1. Pt to be Min assist of one for bed mobility and sit to/from supine transfers 2. Pt to be Min assist of one for sit to/from stand transfers- Met 3. Pt to tolerate ambulation x 50' with least restrictive device and CGA. - Pt made progression with 30' ambulation 4. Pt to tolerate up/down platform step with FWW and CGA/Min assist. - not addressed Metal Template Maker Goals: Pt to discharge to least restrictive environment with supportive care givers. Patient Goals: Pt indicates that she would like to transfer home if possible Rehabilitation Prognosis: Fair Barriers for Discharge: Medical status may be a limiting factor; high risk for pressure ulcer with low BMI and decreased repositioning. PLAN: Pt discharged from skilled PT intervention due to decline in medical situation and family request to return to comfort measures. Thank you for this referral. If you have any questions, concerns, or comments about this report or plan, please contact me at . h. Sharon Barcenas, PT, MPT MTDD
[2018-03-28] MEDS: SIMVASTATIN 20 MG TAB PO SCH (21:00)
--- NOTE | 2018-03-29 06:34 | Death Summary ---
Pronounced Date: Mar 29, 2018 Pronounced Time: 02:58 Preliminary Cause of : Cardiorespiratory arrest Assessment: Aspiration pneumonia Acute respiratory failure COPD due to smoking Diastolic heart failure History of Present Illness Please see admission history and physical for details. LUKAS ROSE DO Mar 29, 2018 06:34
== END 2018-03-29 02:58 | disposition expired | DRG 951 ==
LOC: ECF 16:09
PROVIDERS: ADMIT Internal Medicine; ATTEND Internal Medicine
DX: Z51.5 Encounter for palliative care (principal); J69.0 Pneumonitis due to inhalation of food and vomit; E43 Unspecified severe protein-calorie malnutrition; J96.00 Acute respiratory failure, unspecified whether with hypoxia or hypercapnia; E87.1 Hypo-osmolality and hyponatremia; Z68.1 Body mass index [BMI] 19.9 or less, adult; I50.32 Chronic diastolic (congestive) heart failure; K55.1 Chronic vascular disorders of intestine; I46.9 Cardiac arrest, cause unspecified; E87.6 Hypokalemia; R33.9 Retention of urine, unspecified; J44.9 Chronic obstructive pulmonary disease, unspecified; I11.0 Hypertensive heart disease with heart failure; I73.00 Raynaud's syndrome without gangrene; K57.30 Diverticulosis of large intestine without perforation or abscess without bleeding; K21.9 Gastro-esophageal reflux disease without esophagitis; E86.0 Dehydration; S12.000D Unspecified displaced fracture of first cervical vertebra, subsequent encounter for fracture with routine healing; I48.2 Chronic atrial fibrillation; I73.9 Peripheral vascular disease, unspecified; Z66 Do not resuscitate; Z95.0 Presence of cardiac pacemaker; Z79.01 Long term (current) use of anticoagulants; Z95.1 Presence of aortocoronary bypass graft; Z95.2 Presence of prosthetic heart valve; Z91.040 Latex allergy status
CPT/HCPCS: 36415; 71045; 74018; 74230; 81001; 82040; 82247; 82310; 82374; 82435; 82565; 82947; 83615; 84075; 84132; 84155; 84295; 84450; 84460; 84520; 85025; 85610; 87088; 94640; 97161; 97165; J1650; J1720; J2060; J2270; J7040